=== PATIENT | male | born 1975 | race Caucasian/White ===

== ENCOUNTER 2022-10-12 11:59 | Outpatient (OUT) | payer BC, SELFPAY | END 2022-10-12 12:00 | PROVIDERS: PCP Internal Medicine; Visit Provider Internal Medicine | DX: G47.33 Obstructive sleep apnea (adult) (pediatric) (principal) | CPT/HCPCS: 95806 ==

== ENCOUNTER 2022-11-13 20:00 | Outpatient (OUT) | payer BC, SELFPAY | END 2022-11-13 20:01 | disposition home or self-care (01) | LOC: SLEEP 11-14 07:31 | PROVIDERS: PCP Internal Medicine; Visit Provider Internal Medicine | DX: G47.33 Obstructive sleep apnea (adult) (pediatric) (principal) | CPT/HCPCS: 95811 ==

== ENCOUNTER 2023-03-07 12:33 | Outpatient (OUT) | payer BC, SELFPAY ==
[2023-02-23] MEDS: FLU VACC QS 23-24(6MS UP)CEL/PF 60 MCG/0.5 ML SYRINGE IM (17:50)
== END 2023-03-07 12:34 | disposition home or self-care (01) ==
LOC: VACCLI 12:33
PROVIDERS: PCP Internal Medicine; Visit Provider Internal Medicine
DX: Z23 Encounter for immunization (principal)
CPT/HCPCS: 90674; G0008

== ENCOUNTER 2023-06-22 08:34 | Outpatient (OUT) | payer BC, SELFPAY ==
--- OUTSIDE RECORDS SUMMARY | 2023-06-22 08:53 | XMS_ITS | CCD ---
Author Name Unknown Address [address] [place] [id number] Organization [facility] Care Team Providers Care Ophthalmic Pathologist Name Role Phone Aubrey Ubaldo Unavailable INDIO, DR DUNN Admitting Unavailable BALL, DR DUNN Attending Unavailable BUCKNER, DR YRAN Bacon Primary Care Unavailable OLEXA, UBALDO Admitting Unavailable OLEXA, UBALDO Attending Unavailable BUCKNER, DR RYAN Bacon Primary Care Unavailable ZIEBER, DR SAY Otero Consulting Unavailable OLEXA, UBALDO Consulting Unavailable PETZNICK, DR MULLER Admitting Unavailable PETZNICK, DR MULLER Attending Unavailable BALL, DR DUNN Primary Care Unavailable PETZNICK, DR MULLER Consulting Unavailable OLEXA, UBALDO Admitting Unavailable OLEXA, UBALDO Attending Unavailable BUCKNER, DR RYAN Bacon Primary Care Unavailable NILL, DR WELLINGTON Admitting Unavailable NILL, DR WELLINGTON Attending Unavailable BUCKNER, DR RYAN Bacon Primary Care Unavailable NILL, DR WELLINGTON Consulting Unavailable NILL, DR WELLINGTON Admitting Unavailable NILL, DR WELLINGTON Attending Unavailable BALL, DR DUNN Primary Care Unavailable NILL, DR WELLINGTON Consulting Unavailable AGUBOSIM, KALI Consulting Unavailable DORKOSKIE, JUSTYN Consulting Unavailable Indio, Stalin Unavailable YOHANA JOHNSON Attending Unavailable Medications Current Medications Medication Drug Class(es) Dates Sig (Normalized) Sig (Original) Hydrocortisone / Neomycin / Polymyxin B (6 sources) Aminoglycoside Antibacterial, Polymyxin-class Antibacterial, Corticosteroid Start: 06-18-2013 Cortisporin [id number] 4 drops into affected ear Otic Three times a day for 7 days Jun, Active insulin aspart, human 100 unt/ml injectable solution (6 sources) Insulin Analog NovoLOG 100 UNIT/ML as directed Subcutaneous Active predniSONE 20 mg oral tablet (3 sources) Start: 10-18-2022 predniSONE 20 MG 1 tablet Orally tid w/ food x 3 days, then bid w/ food x 3 days, then qd w/ food x 3 days for 9 days Sep, Active Problems Active Problems Problem Classification Problem Date Documented Date Episodic/Chronic Allergic reactions (1 source) Allergic contact dermatitis due to plants, except food Episodic Anxiety disorders (6 sources) Generalized anxiety disorder; Translations: [Generalized anxiety disorder] Onset: 08-05-2021 Chronic Diabetes mellitus with complications (6 sources) Hyperglycemia due to type 1 diabetes mellitus; Translations: [Type 1 diabetes mellitus with hyperglycemia] Chronic Diabetes mellitus without complication (1 source) Type 1 diabetes mellitus without complications; Translations: [TYPE 1 DM WITHOUT COMPLICATIONS] Onset: 08-05-2021 Chronic Disorders of lipid metabolism (6 sources) Pure hypercholesterolemia , unspecified; Translations: [Pure hypercholesterolemia ] Onset: 08-05-2021 Chronic Other connective tissue disease (4 sources) Adhesive capsulitis of right shoulder; Translations: [Adhesive capsulitis of right shoulder] Episodic Other connective tissue disease (1 source) Other symptoms and signs involving the nervous system Episodic Other ear and sense organ disorders (6 sources) Infective otitis externa; Translations: [Infective otitis externa, unspecified] Chronic Other ear and sense organ disorders (1 source) Otitis externa of bilateral ears; Translations: [Other otitis externa, bilateral] Chronic Other nutritional; endocrine; and metabolic disorders (2 sources) Overweight; Translations: [Overweight] Episodic Residual codes; unclassified (2 sources) Obstructive sleep apnea syndrome; Translations: [Obstructive sleep apnea (adult) (pediatric)] Chronic Residual codes; unclassified (1 source) Obstructive sleep apnea (adult) (pediatric) Chronic Unclassified (1 source) CONTACT W/AND (SUSP) EXPOS COVID-19; Translations: [CONTACT W/AND (SUSP) EXPOS COVID-19] Onset: 07-28-2021 Past or Other Problems Problem Classification Problem Date Documented Date Episodic/Chronic Noninfectious gastroenteritis (1 source) Noninfective gastroenteritis and colitis, unspecified; Translations: [NONINFECTIVE GE AND COLITIS UNS] Onset: 08-05-2021 Episodic Other aftercare (1 source) Other long term care pharmacist (current) drug therapy; Translations: [OTH BRAIN WAVE TECHNICIAN CURRENT DRUG THERAPY] Onset: 08-05-2021 Episodic Other connective tissue disease (6 sources) Adhesive capsulitis of right shoulder; Translations: [ADHESIVE CAPSULITIS RIGHT SHOULDER] Onset: 07-27-2021 Resolved: 09-21-2021 Episodic Other connective tissue disease (1 source) Adhesive capsulitis of left shoulder Onset: 09-21-2021 Resolved: 09-21-2021 Episodic Other non-traumatic joint disorders (6 sources) Pain in right shoulder; Translations: [PAIN IN RIGHT SHOULDER] Onset: 07-27-2021 Resolved: 09-21-2021 Episodic Other non-traumatic joint disorders (3 sources) Pain in left shoulder; Translations: [PAIN IN LEFT SHOULDER] Onset: 07-27-2021 Resolved: 09-21-2021 Episodic Other screening for suspected conditions (not mental disorders or infectious disease) (4 sources) Encounter for screening for malignant neoplasm of colon; Translations: [ENC SCREEN MALIG NEOPLASM COLON] Onset: 07-28-2021 Episodic Screening and history of mental health and substance abuse codes (1 source) Personal history of nicotine dependence; Translations: [PERSONAL HISTORY OF NICOTINE DEPEND] Onset: 08-05-2021 Episodic Results Test Name Value Interpretation Reference Range Facil ity CBC AUTO DIFFon 03-12-2022 BASO # 0.1 103/ul Normal 0.0-0.1 [facility] Comment on above: Performed By: #### C BC #### [facility] [address] [address] [address] Michelle Newell Basophils/100 WBC (Bld) 1.1 % Normal 0.2-2.0 [facility] Comment on above: Performed By: #### C BC #### [facility] [address] [address] [address] Michelle Newell EO # 0.3 103/ul Normal 0.0-0.7 [facility] Comment on above: Performed By: #### C BC #### [facility] [address] [address] [address] Michelle Newell Eosinophils/100 WBC (Bld) 4.6 % Normal 0.9-7.0 [facility] Comment on above: Performed By: #### C BC #### [facility] [address] [address] [address] Michelle Newell Erythrocyte distribution width (RBC) [Ratio] 12.2 % Normal 11.0-15.0 [facility] Comment on above: Performed By: #### C BC #### [facility] [address] [address] [address] Michelle Newell Hematocrit (Bld) [Volume fraction] 45.4 % Normal 42.0-54.0 [facility] Comment on above: Performed By: #### C BC #### [facility] [address] [address] [address] Michelle Newell Hemoglobin (Bld) [Mass/Vol] 15.4 g/dL Normal 14.0-18.0 [facility] Comment on above: Performed By: #### C BC #### [facility] [address] [address] [address] Mcihelle Newell IG # 0.02 10e3/ul Normal 0.00-0.03 [facility] Comment on above: Performed By: #### C BC #### [facility] [address] [address] [address] Michelle Newell IG % 0.3 % Normal 0.0-0.5 [facility] Comment on above: Performed By: #### C BC #### [facility] [address] [address] [address] Michelle Newell LYMPH # 1.8 103/ul Normal 1.2-3.8 [facility] Comment on above: Performed By: #### C BC #### [facility] [address] [address] [address] Michelle Newell Lymphocytes/100 WBC (Bld) 24.5 % Normal 20.5-60.0 [facility] Comment on above: Performed By: #### C BC #### [facility] [address] [address] [address] Michelle Newell MANUAL DIFF REQ NO Normal [facility] Comment on above: Performed By: #### C BC #### [facility] [address] [place] [address] Dr. Michelle Newell MCH (RBC) [Entitic mass] 30.9 pg Normal 25.9-34.0 [facility] Comment on above: Performed By: #### C BC #### [facility] [address] [address] [address] Michelle Newell MCHC (RBC) [Mass/Vol] 33.9 g/dL Normal 29.9-35.2 [facility] Comment on above: Performed By: #### C BC #### [facility] [address] [address] [address] Michelle Newell MCV (RBC) [Entitic vol] 91.2 fL Normal 80.0-94.0 [facility] Comment on above: Performed By: #### C BC #### [facility] [address] [place] [address] Dr. Michelle Newell MONO # 0.8 103/ul Normal 0.3-0.8 [facility] Comment on above: Performed By: #### C BC #### [facility] [address] [place] [address] Dr. Michelle Newell Monocytes/100 WBC (Bld) 10.8 % Normal 1.7-12.0 [facility] Comment on above: Performed By: #### C BC #### [facility] [address] [place] [address] Dr. Michelle Newell NEUT # 4.3 103/ul Normal 1.4-6.5 [facility] Comment on above: Performed By: #### C BC #### [facility] [address] [place] [address] Dr. Michelle Newell Neutrophils/100 WBC (Bld) 58.7 % Normal 43.0-75.0 [facility] Comment on above: Performed By: #### C BC #### [facility] [address] [place] [address] Dr. Michelle Newell Platelet mean volume (Bld) [Entitic vol] 10.2 fL Normal 9.5-13.5 [facility] Comment on above: Performed By: #### C BC #### [facility] [address] [place] [address] Dr. Michelle Newell PLT 326 103/ul Normal 150-450 [facility] Comment on above: Performed By: #### C BC #### [facility] [address] [address] [address] Michelle Newell RBC 4.98 106/ul Normal 4.70-6.10 [facility] Comment on above: Performed By: #### C BC #### [facility] [address] [address] [address] Michelle Newell WBC 7.3 103/ul Normal 4.0-11.0 [facility] Comment on above: Performed By: #### C BC #### [facility] [address] [address] [address] Michelle Newell LIPID PROFILEon 03-12-2022 CHOL-HDL RATIO NORM SEE BELOW Normal [facility] Comment on above: Result Comment: 3.3 - 4.4 LOW RISK 4.4 - 7.1 AVERAGE RISK 7.1 - 11.0 MODERATE RISK >11.0 HIGH RISK Performed By: #### L IPID, TSH, CMP #### [facility] [address] [address] [address] Michelle Newell Cholesterol [Mass/Vol] 155 mg/dL Normal <=200 [facility] Comment on above: Performed By: #### L IPID, TSH, CMP #### [facility] [address] [address] [address] Michelle Newell Cholesterol in HDL [Mass/Vol] 70 mg/dL Critically high 40-60 [facility] Comment on above: Performed By: #### L IPID, TSH, CMP #### [facility] [address] [address] [address] Michelle Newell Cholesterol in LDL [Mass/Vol] 76.2 mg/dL Normal [facility] Comment on above: Performed By: #### L IPID, TSH, CMP #### [facility] [address] [address] [address] Michelle Newell Cholesterol.total/C holesterol in HDL [Mass ratio] 2.2 {ratio} Normal [facility] Comment on above: Performed By: #### L IPID, TSH, CMP #### [facility] [address] [address] [address] Michelle Newell HDL NORMAL > or = 60 mg/dl - LO W CARDIOVASCULAR RISK <40 mg/dl - HIGH CARDIOVASCULAR RISK Normal [facility] Comment on above: Performed By: #### L IPID, TSH, CMP #### [facility] [address] [address] [address] Michelle Newell LDL CALC NORMAL SEE BELOW Normal [facility] Comment on above: Result Comment: <100 mg/dl OPTIMAL 100 - 129 mg/dl NEAR OR ABOVE OPTIMAL 130 - 159 mg/dl BORDERLINE HIGH 160 - 189 mg/dl HIGH >190 mg/dl VERY HIGH Performed By: #### L IPID, TSH, CMP #### [facility] [address] [address] [address] Michelle Newell Triglyceride [Mass/Vol] 44 mg/dL Normal <=150 [facility] Comment on above: Performed By: #### L IPID, TSH, CMP #### [facility] [address] [address] [address] Michelle Newell VLDL CALC 8.8 mg/dL Normal [facility] Comment on above: Performed By: #### L IPID, TSH, CMP #### [facility] [address] [address] [address] Michelle Newell MICROALB CREAT RATIO RANDOMo n 03-12-2022 mALB <1.3 Normal <=30.0 [facility] Comment on above: Performed By: #### M CRR #### [facility] [address] [address] [address] Michelle Newell MALB CR RATIO 7.6 mg/g Normal 0.0-29.9 [facility] Comment on above: Performed By: #### M CRR #### [facility] [address] [address] [address] Michelle Newell MALB CR RATIO RANGE SEE BELOW Normal [facility] Comment on above: Result Comment: NO M ICROALBUMINURIA 0-29 MG/G CLINICAL MICROALBUMINURIA 30-300 MG/G MACROALBUMINURIA >300 MG/G Performed By: #### M CRR #### [facility] [address] [address] [address] Michelle Newell URINE CREAT 170.74 mg/dL Normal 20.00-300.[address] [facility] Comment on above: Performed By: #### M CRR #### [facility] [address] [address] [address] Michelle Newell PROF 14(COMP METB)on 022 Albumin [Mass/Vol] 4.2 g/dL Normal 3.4-5.0 [facility] Comment on above: Performed By: #### L IPID, TSH, CMP #### [facility] [address] [place] [address] Dr. Michelle Newell Albumin/Globulin [Mass ratio] 1.2 {ratio} Normal [facility] Comment on above: Performed By: #### L IPID, TSH, CMP #### [facility] [address] [place] [address] Dr. Michelle Newell ALP [Catalytic activity/Vol] 130 U/L Critically high 46-116 [facility] Comment on above: Performed By: #### L IPID, TSH, CMP #### [facility] [address] [place] [address] Dr. Michelle Newell ALT [Catalytic activity/Vol] 30 U/L Normal 16-63 [facility] Comment on above: Performed By: #### L IPID, TSH, CMP #### [facility] [address] [place] [address] Dr. Michelle Newell Anion gap [Moles/Vol] 7.3 mmol/L Normal [facility] Comment on above: Performed By: #### L IPID, TSH, CMP #### [facility] [address] [place] [address] Dr. Michelle Newell AST [Catalytic activity/Vol] 19 U/L Normal 15-37 [facility] Comment on above: Performed By: #### L IPID, TSH, CMP #### [facility] [address] [place] [address] Dr. Michelle Newell Bilirubin [Mass/Vol] 0.5 mg/dL Normal 0.2-1.0 [facility] Comment on above: Performed By: #### L IPID, TSH, CMP #### [facility] [address] [address] [address] Michelle Newell Calcium [Mass/Vol] 8.9 mg/dL Normal 8.5-10.1 [facility] Comment on above: Performed By: #### L IPID, TSH, CMP #### [facility] [address] [address] [address] Michelle Newell Chloride [Moles/Vol] 101 mmol/L Normal 98-107 [facility] Comment on above: Performed By: #### L IPID, TSH, CMP #### [facility] [address] [address] [address] Michelle Newell CO2 [Moles/Vol] 34.6 mmol/L Critically high 21.0-32.0 [facility] Comment on above: Performed By: #### L IPID, TSH, CMP #### [facility] [address] [place] [address] Dr. Michelle Newell Creatinine [Mass/Vol] 0.75 mg/dL Normal 0.70-1.30 [facility] Comment on above: Performed By: #### L IPID, TSH, CMP #### [facility] [address] [place] [address] Dr. Michelle Newell EGFR-AF ZAMBIAN >60 Normal >=60 [facility] Comment on above: Performed By: #### L IPID, TSH, CMP #### [facility] [address] [place] [address] Dr. Michelle Newell EGFR-NON AF ZAMBIAN >60 Normal >=60 [facility] Comment on above: Performed By: #### L IPID, TSH, CMP #### [facility] [address] [place] [address] Dr. Michelle Newell Globulin (S) [Mass/Vol] 3.4 g/dL Normal [facility] Comment on above: Performed By: #### L IPID, TSH, CMP #### [facility] [address] [place] [address] Dr. Michelle Newell Glucose [Mass/Vol] 131 mg/dL Critically high 74-106 [facility] Comment on above: Performed By: #### L IPID, TSH, CMP #### [facility] [address] [place] [address] Dr. Michelle Newell Potassium [Moles/Vol] 3.9 mmol/L Normal 3.5-5.1 [facility] Comment on above: Performed By: #### L IPID, TSH, CMP #### [facility] [address] [place] [address] Dr. Michelle Newell Protein [Mass/Vol] 7.6 g/dL Normal 6.4-8.2 [facility] Comment on above: Performed By: #### L IPID, TSH, CMP #### [facility] [address] [place] [address] Dr. Michelle Newell Sodium [Moles/Vol] 139 mmol/L Normal 136-145 [facility] Comment on above: Performed By: #### L IPID, TSH, CMP #### [facility] [address] [place] [address] Dr. Michelle Newell Urea nitrogen [Mass/Vol] 11.0 mg/dL Normal 7.0-18.0 [facility] Comment on above: Performed By: #### L IPID, TSH, CMP #### [facility] [address] [place] [address] Dr. Michelle Newell Urea nitrogen/Creatinine [Mass ratio] 14.7 mg/mg Normal [facility] Comment on above: Performed By: #### L IPID, TSH, CMP #### [facility] [address] [place] [address] Dr. Michelle Newell TSHon 03-12-2022 TSH 4.267 uIU/mL Critically high 0.358-3.740 [facility] Comment on above: Performed By: #### L IPID, TSH, CMP #### [facility] [address] [place] [address] Dr. Michelle Newell Pathology Noteon 07-30-2021 Pathology Note [id number] 0CD:127 Normal [facility] Outside Colonoscopyon 2021 Outside Colonoscopy [id number] CD:127 Normal [facility] Reminderson 07-29-2021 Reminders - From: Etelvina Saxena LPN To: N - Clinical; Sent: 07/29/2021 09:57:59 EDT Show up: 06/28/2031 07:00:00 EST Subject: colonoscopy recall Due Date/Time: 07/29/2031 07:00:00 EDT Reminder/Recall Patient is due for screening colonoscopy 07/29/2031. Normal [facility] Lab Reportson 07-26-2021 Lab Reports [id number] 0CD:127 Normal [facility] SARS-CoV-2 (COVID-19) RNA FRANCE+probe Ql (Unsp spec) Not detected Normal NOT DETECTED [facility] Comment on above: Result Comment: When diagnostic testing is negative, the possibility of a false negative should be considered in the context of a patient's recent exposures and the presence of clinical signs and symptoms consistent with SARS-CoV-2. This test is not yet approved or cleared by the [place] Food and Drug Administration (FDA). This test was developed by [employer], [place], [place]. The performance characteristics of this test were validated by [facility]. The results are not intended to be used as the sole means for clinical diagnosis or patient management decisions. [facility] is authorized under Clinical Laboratory Improvement Amendments (CLIA) to perform high- complexity testing. This test is not yet approved or cleared by the [place] FDA. When there are no FDA-approved or cleared tests available, and other criteria are met, FDA can make tests available under an emergency access mechanism called an Emergency Use Authorization (EUA). The EUA for this test is supported by the [place] of Health and Human Service's declaration that circumstances exist to justify the emergency use of in vitro diagnostics for the detection and/or diagnosis of the virus that causes COVID-19. This EUA will remain in effect for the duration of the COVID-19 declaration justifying emergency of IVDs, unless it is terminated or revoked by the FDA (after which the test may no longer be used). Performed By: #### C [facility] #### [facility] [address] [place] [address] Dr. Michelle Newell Consent for Procedure/Surger yon 07-15-2021 Consent for Procedure/Surgery [id number] 0CD:127 Normal [facility] Physician Referralon 022 Physician Referral [id number] 0CD:127 Normal [facility] Vital Signs Date Time Vital Sign Value Performing Clinician Facility 09-30-2022 10:00-0400 Body height 172.72 cm [facility] Other [facility] Other 09-30-2022 10:00-0400 Body mass index (BMI) [Ratio] 28.67 kg/m2 [facility] Other [facility] Other 09-30-2022 10:00-0400 Body weight 85.55 kg [facility] Other [facility] Other 09-30-2022 10:00-0400 Diastolic blood pressure 80 mm[Hg] [facility] Other [facility] Other 09-30-2022 10:00-0400 Respiratory rate 12 /min [facility] Other [facility] Other 09-30-2022 10:00-0400 Systolic blood pressure 135 mm[Hg] [facility] Other [facility] Other Encounters Encounter Date Encounter Type Care Provider Facility Start: 04-14-2023 End: 04-14-2023 ambulatory YOHANA JOHNSON Not Available Start: 01-18-2023 End: 01-18-2023 ambulatory Stalin Borjas Other [facility] Other Start: 01-18-2023 Telephone encounter tSalin GOMES [facility] Start: 10-24-2022 End: 10-24-2022 ambulatory Stalin Borjas Other [facility] Other Start: 10-24-2022 Telephone encounter Stalin GOMES [facility] Start: 10-18-2022 End: 10-18-2022 ambulatory Stalin Borjas Other [facility] Other Start: 10-18-2022 Telephone encounter Stalin GOMES [facility] Start: 09-30-2022 End: 09-30-2022 ambulatory Stalin Borjas Other [facility] Other Start: 09-30-2022 Encounter for genera l adult medical examination without abnormal findings Stalin Borjas [facility] Start: 09-30-2022 Periodic preventive med est patient 40-64yrs Stalin Borjas [facility] Start: 03-15-2022 Encounter for genera l adult medical examination without abnormal findings DR YOHANA JOHNSON [facility] Start: 03-12-2022 End: 03-13-[address] YOHANA JOHNSON Facility:[facility] Start: 03-12-2022 End: 03-13-2022 Encounter for general adult medical examination without abnormal findings DR YOHANA JOHNSON Facility:[facility] Start: 09-21-2021 End: 09-21-2021 ambulatory Ubaldo Burgos Other [facility] Other Start: 09-21-2021 Office outpatient vi sit [address] [facility] Start: 08-10-2021 End: 09-24-2021 ambulatory UBALDO BURGOS Facility:[facility] Start: 07-28-2021 Encounter for preprocedural laboratory examination DR ELIZ CHICAS [facility] Start: 07-28-2021 End: 07-28-[address] ELIZ CHICAS Facility:[facility] Start: 07-27-2021 End: 07-28-2021 ambulatory UBALDO AUBREY [facility] Other Start: 07-27-2021 Office outpatient ne w 30 minutes Ubaldo Sethmichael [facility] Start: 07-24-2021 End: 07-25-[address] ELIZ CHICAS Facility:[facility] Start: 07-24-2021 End: 07-25-2021 Encounter for preprocedural laboratory examination DR ELIZ CHICAS Facility:[facility] Start: 07-03-[address] STALIN BORJAS Facili ty:[facility] Start: 06-29-2021 Encounter for genera l adult medical examination without abnormal findings Stalin Borjas Other [email or web address] Other Procedures Date Procedure Procedure Detail Performing Clinician Depression screening Dank Borjas Other Immunizations Immunization Date Immunization Notes Care Provider Fa [facility] 04-13-2021 influenza, injectabl e, quadrivalent, contains preservative Stalin Borjas Other [email or web address] Other 02-24-2021 COVID-19 Vaccine Moderna - Documentation Purposes Only Stalin Borjas Other [email or web address] Other 08-09-2020 COVID-19 Vaccine Moderna - Documentation Purposes Only Stalin Borjas Other [email or web address] Other 07-13-2020 COVID-19 Vaccine Moderna - Documentation Purposes Only Stalin Borjas Other [email or web address] Other Payers Date Payer Category Payer [facility] [id number] 2019 Unknown [id number] 1973 Unknown [id number] .16.84 [id number] 1973 Unknown [id number] .16.84 [id number] 1973 Unknown [id number] 2.16.84 [id number] 1973 Unknown [id number] 2.16.84 [id number] 1973 Unknown [id number] 2.16.84 [id number] 1973 Unknown [id number] 2.16.84 [id number] 1973 Unknown [id number] 1959 Private Health Insurance [id number] 1961 Self-pay Social History Date Type Detail Facility Sex Assigned At [email or web address] Other Clinical Notes 07-14-2021 to 01-18-2023 Note Date & Type Note Facility 01-18-2023 Evaluation note Encounter Date Diagnosis Assessment Notes Dec, 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 (ICD-10 - E10.3553) [email or web address] Other 06-26-2023 Evaluation note* Encounter Date Diagnosis Assessment Notes Treatment Notes Treatment Clinical Notes Sep, AKIN (obstructive sleep apnea) (ICD-10 - G47.33) AHI 18 Psat 79% [email or web address] Other 06-20-2023 Evaluation note* Encounter Date Diagnosis Assessment Notes Treatment Notes Treatment Clinical Notes Sep, Allergic contact dermatitis due to plants, except food (ICD-10 - L23.7) [email or web address] Other 06-02-2023 Evaluation note* Encounter Date Diagnosis Assessment Notes Treatment Notes Treatment Clinical Notes Sep, Wellness examination (ICD-10 - Z00.00) Healthy diet and exercise. Reviewed age-appropriate preventive testing recommended. Sep, Type 1 diabetes mellitus with hyperglycemia (ICD-10 - E10.65) This patient is following a comprehensive diabetic treatment plan. They are checking their feet daily for calluses and nonhealing ulcers. They are being seen for yearly dilated eye examinations. Goals: SBP less than 130, LDL less than 100, FBS less than 140, AC and A1C less than 7%. They are checking their BS daily, will which are reviewed at the office visit. Continue regular routine monitoring of A1C,] Microalbumin, Dilated eye exam and Foot exam Sep, Overweight (ICD-10 - E66.3) This patient has been instructed on a low-fat, high-fiber diet. They are instructed to reduce calories, portion sizes and snacks. It is recommended that they exercise for 30 minutes, 3-5 times weekly. Sep, Suspected sleep apnea (ICD-10 - R29.818) Recommend testing, will send referral for home sleep study [email or web address] Other 05-24-2022 Evaluation note* Encounter Date Diagnosis Assessment Notes Treatment Notes Treatment Clinical Notes August, Pain in right shoulder (ICD-10 - M25.511) August, Pain in left shoulder (ICD-10 - M25.512) August, Adhesive capsulitis of right shoulder (ICD-10 - M75.01) The patient continues to demonstrate symptoms of adhesive capsulitis, however, is improving from current treatment. We will continue aggressive motion exercise. Instructed on use of heat prior to motion exercises. Advised patient take oral NSAID if able at bedtime to decrease morning stiffness. May consider cortisone injection if motion improvement stalls. If patient cannot reach full improvement, may consider surgical intervention. Patient may call in for additional formal physical therapy if he feels necessary at any point. August, Adhesive capsulitis of left shoulder (ICD-10 - M75.02) [email or web address] Other 03-30-2022 NoteOPERATIVE NOTE PREOPERATIVE DIAGNOSIS: Colorectal screening. POSTOPERATIVE DIAGNOSIS: Mild sigmoid inflammation PROCEDURE: Colonoscopy to cecum with cold forceps biopsy of the sigmoid colon. SURGEON: Eliz Chicas M.D. ANESTHESIA: Monitored anesthesia care. ESTIMATED BLOOD LOSS: Less than 1 mL. INDICATIONS AND CONSENT: Patient is a 45-year-old male, presents for colorectal screening. Indications, risks, benefits, alternatives of proceeding explained extensively to patient, including risks of bleeding, colon perforation, anesthetic complications. All of his questions were answered. Informed consent was obtained. PROCEDURE: Patient was brought to the operating room, placed in the left lateral decubitus position. Monitored anesthesia care was provided. Rectal exam was performed which showed no masses or blood. Scope was inserted up the anal canal. Under direct visualization, it was advanced. It was advanced to the cecum where cecal markings were clearly identified. Pictures were obtained. There was noted to be a good prep. Upon withdrawal of the scope, mucosal surfaces were carefully examined. No mass lesions or polyps. There were some mild inflammatory changes from the sigmoid and biopsies were obtained with cold biopsy forceps with good hemostasis. There were rare sigmoid diverticula without inflammatory changes or scarring. Scope was retroflexed in the anal canal. There was no significant hemorrhoidal disease. Scope was then withdrawn. Patient tolerated procedure well. Follow up colonoscopy for screening should be in 10 years. CC: Stalin Borjas D.O. [facility] Signed and Approved by: DR ELIZ CHICAS . 07/30/2021 05:17:00[facility]03-30-2022 NoteOPERATIVE NOTE PREOPERATIVE DIAGNOSIS: Colorectal screening. POSTOPERATIVE DIAGNOSIS: Mild sigmoid inflammation PROCEDURE: Colonoscopy to cecum with cold forceps biopsy of the sigmoid colon. SURGEON: Eliz Chicas M.D. ANESTHESIA: Monitored anesthesia care. ESTIMATED BLOOD LOSS: Less than 1 mL. INDICATIONS AND CONSENT: Patient is a 45-year-old male, presents for colorectal screening. Indications, risks, benefits, alternatives of proceeding explained extensively to patient, including risks of bleeding, colon perforation, anesthetic complications. All of his questions were answered. Informed consent was obtained. PROCEDURE: Patient was brought to the operating room, placed in the left lateral decubitus position. Monitored anesthesia care was provided. Rectal exam was performed which showed no masses or blood. Scope was inserted up the anal canal. Under direct visualization, it was advanced. It was advanced to the cecum where cecal markings were clearly identified. Pictures were obtained. There was noted to be a good prep. Upon withdrawal of the scope, mucosal surfaces were carefully examined. No mass lesions or polyps. There were some mild inflammatory changes from the sigmoid and biopsies were obtained with cold biopsy forceps with good hemostasis. There were rare sigmoid diverticula without inflammatory changes or scarring. Scope was retroflexed in the anal canal. There was no significant hemorrhoidal disease. Scope was then withdrawn. Patient tolerated procedure well. Follow up colonoscopy for screening should be in 10 years. CC: Stalin Borjas D.O. : [facility] Signed and Approved by: DR ELIZ CHICAS . 07/30/2021 05:17:00[facility]03-29-2022 NotePROCEDURE: XR SHOULDER MACRINA 2V or > HISTORY: Pain of right shoulder joint ; chronic bilateral shoulder pain, right greater than left COMPARISON: None. FINDINGS: BONES:No fracture or dislocation. Small degenerative osteophyte along the inferior margin of right glenoid. Minimal joint space narrowing of the glenohumeral joints and acromioclavicular joints bilaterally. SOFT TISSUES:No visible soft tissue swelling. EFFUSION:None visible. OTHER: Negative. IMPRESSION: 1. No acute bone abnormality or bone lesion. 2. Only mild degenerative changes of the glenohumeral joints and acromioclavicular joints bilaterally. Electronically authenticated by: SAY VILLASENOR Date: 2021-07-27 17:23[facility]03-29-2022 Evaluation note* Encounter Date Diagnosis Assessment Notes Treatment Notes Treatment Clinical Notes Jun, Pain in right shoulder (ICD-10 - M25.511) Jun, Pain in left shoulder (ICD-10 - M25.512) Jun, Adhesive capsulitis of right shoulder (ICD-10 - M75.01) This appears to be adhesive capsulitis (frozen shoulder). We discussed and demonstrated aggressive motion exercise in flexion, internal and external rotation multiple times per day. This may take months to improve and the possibility for some permanent loss of motion is present. Patient instructed on use of occasional heat to area and motion exercise. Formal order of physical therapy. [email or web address] Other 03-16-2022 NoteChief Complaint consultation for colonoscopy HPI Staff 45 year old male presents on consultation from Dr. Borjas for screening colonoscopy. Denies abdominalor rectal pain. No rectal bleeding or change in bowel habits. Denies nausea or vomiting. No unexplained weight loss. Never had colonoscopy in the past. No known family history of colon cancer. History of Present Illness 45 yo male with h/o type 1 DM, hyperlipidemia, referred for colorectal screening; denies change in bms or blood in stools, no abdominal complaints; no previous colonoscopy; no abdominal operations; denies asa or NSAID use, no SBE prophylaxis; no fmhx of GI malignancy or IBD. Review of Systems PHQ Score Initial Depression Screen Score: 0 ROS - Provider Constitutional: no fever, no sweats, no weight loss. Eyes: no glasses, no blurred vision, no visual loss. ENMT: no dentures, no hoarseness, no swallowing difficulties, no hearing loss, no ear infection(s),no nose bleeds. Cardiovascular: normal blood pressure, no chest pain, regular heartbeat, no heart murmur. Respiratory: no shortness of breath, no cough, no asthma, no wheezing. Gastrointestinal: no nausea, no vomiting, no diarrhea, no constipation, no blood in stool, no change in bowel habits, no abdominal pain, no hepatitis. Genitourinary: no kidney stones, no urine infection, no dysuria. Musculoskeletal: no pain, no weakness. Skin: no changing moles, no rash, no skin lumps. Neurologic: no seizures, no epilepsy, no headache. Psychiatric: no emotional or psychiatric problem. Heme/Lymph: no bleeding problems, no anemia, no blood clots, no transfusions. Allergy/Immunologic: no swollen lymph nodes/glands, no IV drug abuse. Other: Additional ROS info: Except as noted in the above Review of Systems and in the History of Present Illness, all other systems have been reviewed and are negative or noncontributory. Physical Exam Vitals & Measurements T: 36.7 ?C(Temporal Artery) HR: 76(Peripheral) RR: 16 BP: 126/76 HT: 172.72 cm HT: 172.7 cm WT: 86.4 kg WT: 86.4 kg BMI: 28.96 HEENT: normal conjunctiva, sclera clear, no scleral icterus, EOM intact, PERRLA, oral mucosa moist without lesions. Neck: trachea midline, no mass, symmetric, no thyromegaly or nodules, no adenopathy Respiratory: lungs CTA, respirations non labored. Cardiovascular: regular rate and rhythm, no murmur, no pedal edema or varicosities. Gastrointestinal: soft, non distended, no tenderness, no masses, no palpable hernias, diastasis recti no, no hepatosplenomegaly; normal bs Lymphatic: no cervical adenopathy, no axillary adenopathy, Musculoskeletal: normal gait, digits and nails without infection, nodes, cyanosis, clubbing. Skin: no rashes, no lesions, no ulcers, no subcutaneous nodules, induration. Psychiatric/Neuro: oriented to time, place, person, judgement normal, affect appropriate for age, insight intact, no focal deficits. Tests: review of old records completed, Discussed surgical options, risks, and possible complications with patient. Assessment/Plan 1. Screening for malignant neoplasm of colon (Z12.11: Encounter for screening for malignant neoplasm of colon) plan colonoscopy under anesthesia, informed consent obtained. Follow-up No qualifying data available Problem List/Past Medical History Ongoing BMI 28.0-28.9,adult Controlled type 1 diabetes mellitus with hyperglycemia HAILEY (generalized anxiety disorder) Pure hypercholesterolemia Screening for malignant neoplasm of colon Historical No qualifying data Procedure/Surgical History Carpal tunnel release (2014). Medications atorvastatin 20 mg Tab, 20 mg= 1 tab(s), Oral, Daily Fiasp, See Instructions fluocinolone otic 0.01% drops, 5 drop(s), Ear-Both, BID Lexapro 10 mg Tab, 10 mg= 1 tab(s), Oral, Daily Allergies No Known Allergies Social History Alcohol Current, Beer, 3-5 times per week, 07/14/2021 Substance Abuse - Denies Substance Abuse, 07/14/2021 Tobacco Former smoker, quit more than 30 days ago Tobacco Use:. Never Smokeless Tobacco Use:. Cigarettes, 1per day. Started age 18.0 Years. Stopped age 28 Years., 07/14/2021 Family History Acute myocardial infarction: Father. Immunizations Vaccine Date Status influenza virus vaccine, [facility]:Result Comment: Electronically Signed By: ZULEMA PICHARDO, Eliz Richards\Date and Time Signed: 07/14/21 17:02 EDTHistory general Narrative - Reported* Type Description Date Medical History diabetes mallitus Surgical History carpal tunnel release [email or web address] Other History general Narrative - Reported* Type Description Date Medical History diabetes mallitus Medical History Pure hypercholesterolemia Medical History Adhesive capsulitis of right marsha ulder Medical History HAILEY (generalized anxiety disorde r) Surgical History carpal tunnel release- BILATERA L 2014 Surgical History COLONOSCOPY 2021 Hospitalization History SEE SURGICAL HX [facility] [employer] Other History general Narrative - Reported* Type Description Date Medical History diabetes mallitus Medical History Pure hypercholesterolemia Medical History Adhesive capsulitis of right marsha ulder Medical History HAILEY (generalized anxiety disorde r) Medical History AKIN Surgical History carpal tunnel release- BILATERA L 2014 Surgical History COLONOSCOPY 2021 Hospitalization History SEE SURGICAL HX [email or web address] Other History general Narrative - Reported* Type Description Date Medical History diabetes mallitus Medical History Pure hypercholesterolemia Medical History Adhesive capsulitis of right marsha ulder Medical History HAILEY (generalized anxiety disorde r) Medical History AKIN Medical History Proliferative diabetic retinopat hy Surgical History carpal tunnel release- BILATERA L 2014 Surgical History COLONOSCOPY 2021 Hospitalization History SEE SURGICAL HX [email or web address] Other Summary Purpose Family History No Family History Records FoundNo Family History Records FoundNo Family History Records Found Advance Directives No Advanced Directives Records FoundNo Advanced Directives Records FoundNo Advanced Directives Records Found Additional Source Comments (unrecognized sect ion and content) No Status Records FoundNo Status Records FoundNo Status Records Found INFORMATION SOURCE (unrecogn ized section and content) DATE CREATED AUTHOR 08/22/2021 Montes Humphrey [facility] DATE CREATED AUTHOR AUTHOR'S ORGANIZ ATION 03/23/2022 [facility] DATE CREATED AUTHOR AUTHOR'S ORGANIZ ATION 04/16/2023 [facility] EPIC REASON FOR VISIT (unrecogniz ed section and content) CONSULT DR INDIO NICOLE SHOULD ER PAIN NXRecheck Bilateral ShouldersWellnessMedicationNo InformationNo Information FOR RECORDS PERTAINING TO PATIENTS WHO ARE OR HAVE BEEN ENROLLED IN A CHEMICAL DEPENDENCY/SUBSTANCEABUSE PROGRAM, SOME INFORMATION MAY BE OMITTED. This clinical summary was aggregated from multiple sources. Caution should be exercised in using it in the provision of clinical care. This summary normalizes information from multiple sources, and as a consequence, information in this document may materially change the coding, format and clinical context of patient data. In addition, data may be omitted in some cases. CLINICAL DECISIONS SHOULD BE BASED ON THE PRIMARY CLINICAL RECORDS. [employer] provides no warranty or guarantee of the accuracy or completeness of information in this document.
[2023-06-22] MEDS: COVID VAC 23-24(12UP)MODERNA/PF 50 MCG/0.5 ML VIAL IM (15:32)
== END 2023-06-22 15:34 | disposition home or self-care (01) ==
LOC: VACCLI 08:47
PROVIDERS: PCP Internal Medicine
DX: Z23 Encounter for immunization (principal)
CPT/HCPCS: 90480; 91322

== ENCOUNTER 2023-09-29 08:37 | Outpatient (OUT) | payer BC, SELFPAY ==
--- OUTSIDE RECORDS SUMMARY | 2023-09-29 08:58 | XMS_ITS | CCD ---
Author Organization [facility] Care Team Providers Care Strap Setter Name Role Phone Ubaldo Burgos Unavailable ERIKA, DR DUNN Admitting Unavailable BALL, DR DUNN Attending Unavailable BUCKNER, DR RYAN Bacon Primary Care Unavailable OLEXA, UBALDO Admitting [...] RYAN Bacon Primary Care Unavailable NILL, DR WELILNGTON Consulting Unavailable NILL, DR WELLINGTON Admitting Unavailable NILL, DR WELLINGTON Attending Unavailable BALL, DR DUNN Primary Care Unavailable NILL, DR WELLINGTON Consulting Unavailable AGUBOSIM, KALI Consulting Unavailable DORKOSKIE, JUSTYN Consulting Unavailable Stalin James Unavailable YOHANA JOHNSON Attending Unavailable STALIN JAMES Referring Unavailable YOHANA JOHNSON Attending Unavailable Medications Current Medications Medication Drug Class(es) Dates Sig (Normalized) Sig (Original) Hydrocortisone / Neomycin / Polymyxin B (6 sources) Aminoglycoside Antibacterial, Polymyxin-class Antibacterial, Corticosteroid Start: 06-18-2013 Cortisporin 3.5-71995-0 4 drops into affected ear Otic Three [...] 08-05-2021 Episodic Other aftercare (1 source) Other long-term (current) drug therapy; Translations: [OTH [facility] CURRENT DRUG THERAPY] Onset: 08-05-2021 Episodic Other [...] 03-12-2022 BASO # 0.1 103/ul Normal 0.0-0.[address] [facility] Comment on above: Performed By: #### C BC #### [facility] [address] [address] [address] Michelle Newell Basophils/100 WBC (Bld) 1.1 % Normal 0.2-2.[address] [facility] Comment on above: Performed By: #### C BC #### [facility] [address] [address] [address] Michelle Newell EO # 0.3 103/ul Normal 0.0-0.7 [facility] Comment on above: Performed By: #### C BC #### [facility] [address] [address] [address] Michelle Newell Eosinophils/100 WBC (Bld) 4.6 % Normal 0.9-7.[address] [facility] Comment on above: Performed By: #### C BC #### [facility] [address] [address] [address] Michelle Newell Erythrocyte distribution width (RBC) [Ratio] 12.2 % Normal 11.0-15.[address] [facility] Comment on above: Performed By: #### C BC #### [facility] [address] [address] [address] Michelle Newell Hematocrit (Bld) [Volume fraction] 45.4 % Normal 42.0-54.[address] [facility] Comment on above: Performed By: #### C BC #### [facility] [address] [place] [address] Dr. Michelle Newell Hemoglobin (Bld) [Mass/Vol] 15.4 g/dL Normal 14.0-18.[address] [facility] Comment on above: Performed By: #### C BC #### [facility] [address] [place] [address] Dr. Michelle Newell IG # 0.02 10e3/ul Normal 0.00-0.[address] [facility] Comment on above: Performed By: #### C BC #### [facility] [address] [place] [address] Dr. Michelle Newell IG % 0.3 % Normal 0.0-0.[address] [facility] Comment on above: Performed By: #### C BC #### [facility] [address] [place] [address] Dr. Michelle Newell LYMPH # 1.8 103/ul Normal 1.2-3.[address] [facility] Comment on above: Performed By: #### C BC #### [facility] [address] [place] [address] Dr. Michelle Newell Lymphocytes/100 WBC (Bld) 24.5 % Normal 20.5-60.[address] [facility] Comment on above: Performed By: #### C BC #### [facility] [address] [place] [address] Dr. Michelle Newell MANUAL DIFF REQ NO Normal [facility] Comment on above: Performed By: #### C BC #### [facility] [address] [place] [address] Dr. Michelle Newell MCH (RBC) [Entitic mass] 30.9 pg Normal 25.9-34.[address] [facility] Comment on above: Performed By: #### C BC #### [facility] [id number] Michelle Newell MCHC (RBC) [Mass/Vol] 33.9 g/dL Normal 29.9-35.[address] [facility] Comment on above: Performed By: #### C BC #### [facility] [id number] Michelle Newell MCV (RBC) [Entitic vol] 91.2 fL Normal 80.0-94.0 [facility] Comment on above: Performed By: #### C BC #### [facility] [address] [address] [address] Michelle Newell MONO # 0.8 103/ul Normal 0.3-0.[address] [facility] Comment on above: Performed By: #### C BC #### [facility] [address] [place] [address] Dr. Michelle Newell Monocytes/100 WBC (Bld) 10.8 % Normal 1.7-12.[address] [facility] Comment on above: Performed By: #### C BC #### [facility] [address] [place] [address] Dr. Michelle Newell NEUT # 4.3 103/ul Normal 1.4-6.[address] [facility] Comment on above: Performed By: #### C BC #### [facility] [address] [place] [address] Dr. Michelle Newell Neutrophils/100 WBC (Bld) 58.7 % Normal 43.0-75.0 [facility] Comment on above: Performed By: #### C BC #### [facility] [address] [place], [place] [id number] Dr. Michelle Newell Platelet mean volume (Bld) [Entitic vol] 10.2 fL Normal 9.5-13.5 [facility] Comment on above: Performed By: #### C BC #### [facility] [address] [place] [address] Dr. Michelle Newell PLT 326 103/ul Normal 150-450 [facility] Comment on above: Performed By: #### C BC #### [facility] [address] [address] [address] Michelle Newell RBC 4.98 106/ul Normal 4.70-6.[address] [facility] Comment on above: Performed By: #### C BC #### [facility] [address] [address] [address] Michelle Newell WBC 7.3 103/ul Normal 4.0-11.[address] [facility] Comment on above: Performed By: #### C BC #### [facility] [address] [address] [address] Michelle Newell LIPID PROFILEon 03-12-2022 CHOL-HDL RATIO NORM SEE BELOW Normal [facility] Comment on above: Result Comment: 3.3 - 4.4 LOW RISK 4.4 - 7.1 AVERAGE RISK 7.1 - 11.0 MODERATE RISK >11.0 HIGH RISK Performed By: #### L IPID, TSH, CMP #### [facility] [address] [address] [address] Michelle Newell Cholesterol [Mass/Vol] 155 mg/dL Normal <=[address] [facility] Comment on above: Performed By: #### L IPID, TSH, CMP #### [facility] [address] [address] [address] Michelle Newell Cholesterol in HDL [Mass/Vol] 70 mg/dL Critically high 40-[address] [facility] Comment on above: Performed By: #### L IPID, TSH, CMP #### [facility] [address] [address] [address] Michelle Newell Cholesterol in LDL [Mass/Vol] 76.2 mg/dL Normal [facility] Comment on above: Performed By: #### L IPID, TSH, CMP #### [facility] [address] [address] [address] Michelle Newell Cholesterol.total/C holesterol in HDL [Mass ratio] 2.2 {ratio} Normal [facility] Comment on above: Performed By: #### L IPID, TSH, CMP #### [facility] [address] [address] [address] Michelle Newell HDL NORMAL > or = 60 mg/dl - LO W CARDIOVASCULAR RISK <40 mg/dl - HIGH CARDIOVASCULAR RISK Normal [facility] Comment on above: Performed By: #### L IPID, TSH, CMP #### [facility] [address] [address] [address] Michelle Newell LDL CALC NORMAL SEE BELOW Normal [facility] Comment on above: Result Comment: <100 mg/dl OPTIMAL 100 - 129 mg/dl NEAR OR ABOVE OPTIMAL 130 - 159 mg/dl BORDERLINE HIGH 160 - 189 mg/dl HIGH >190 mg/dl VERY HIGH Performed By: #### L IPID, TSH, CMP #### [facility] [address] [address] [address] Michelle Newell Triglyceride [Mass/Vol] 44 mg/dL Normal <=[address] [facility] Comment on above: Performed By: #### L IPID, TSH, CMP #### [facility] [address] [address] [address] Michelle Newell VLDL CALC 8.8 mg/dL Normal [facility] Comment on above: Performed By: #### L IPID, TSH, CMP #### [facility] [address] [address] [address] Michelle Newell MICROALB CREAT RATIO RANDOMo n 03-12-2022 mALB <1.3 Normal <=30.[address] [facility] Comment on above: Performed By: #### M CRR #### [facility] [address] [address] [address] Michelle Newell MALB CR RATIO 7.6 mg/g Normal 0.0-29.9 [facility] Comment on above: Performed By: #### M CRR #### [facility] [address] [address] [address] Michelle Newell MALB CR RATIO RANGE SEE BELOW Normal [facility] Comment on above: Result Comment: NO M ICROALBUMINURIA 0-29 MG/G CLINICAL MICROALBUMINURIA 30-300 MG/G MACROALBUMINURIA >300 MG/G Performed By: #### M CRR #### [facility] [address] [address] [address] Michelle Newell URINE CREAT 170.74 mg/dL Normal 20.00-300.00 [facility] Comment on above: Performed By: #### M CRR #### [facility] [address] [place] [address] Dr. Michelle Newell PROF 14(COMP METB)on 022 Albumin [Mass/Vol] 4.2 g/dL Normal 3.4-5.0 [facility] Comment on above: Performed By: #### L IPID, TSH, CMP #### [facility] [address] [place] [address] Dr. Michelle Newell Albumin/Globulin [Mass ratio] 1.2 {ratio} Normal [facility] Comment on above: Performed By: #### L IPID, TSH, CMP #### [facility] [address] [place] [address] Dr. Michelle Newell ALP [Catalytic activity/Vol] 130 U/L Critically high 46-[address] [facility] Comment on above: Performed By: #### L IPID, TSH, CMP #### [facility] [address] [place] [address] Dr. Michelle Newell ALT [Catalytic activity/Vol] 30 U/L Normal 16-[address] [facility] Comment on above: Performed By: #### L IPID, TSH, CMP #### [facility] [address] [place] [address] Dr. Michelle Newell Anion gap [Moles/Vol] 7.3 mmol/L Normal [facility] Comment on above: Performed By: #### L IPID, TSH, CMP #### [facility] [address] [place] [address] Dr. Michelle Newell AST [Catalytic activity/Vol] 19 U/L Normal 15-[address] [facility] Comment on above: Performed By: #### L IPID, TSH, CMP #### [facility] [address] [place] [address] Dr. Michelle Newell Bilirubin [Mass/Vol] 0.5 mg/dL Normal 0.2-1.[address] [facility] Comment on above: Performed By: #### L IPID, TSH, CMP #### [facility] [address] [address] [address] Michelle Newell Calcium [Mass/Vol] 8.9 mg/dL Normal 8.5-10.1 [facility] Comment on above: Performed By: #### L IPID, TSH, CMP #### [facility] [address] [address] [address] Michelle Newell Chloride [Moles/Vol] 101 mmol/L Normal 98-[address] [facility] Comment on above: Performed By: #### L IPID, TSH, CMP #### [facility] [address] [address] [address] Michelle Newell CO2 [Moles/Vol] 34.6 mmol/L Critically high 21.0-32.[address] [facility] Comment on above: Performed By: #### L IPID, TSH, CMP #### [facility] [address] [place] [address] Dr. Michelle Newell Creatinine [Mass/Vol] 0.75 mg/dL Normal 0.70-1.[address] [facility] Comment on above: Performed By: #### L IPID, TSH, CMP #### [facility] [address] [place] [address] Dr. Michelle Newell EGFR-AF [place] >60 Normal >=60 [facility] Comment on above: Performed By: #### L IPID, TSH, CMP #### [facility] [address] [place] [address] Dr. Michelle Newell EGFR-NON AF [place] >60 Normal >=[address] [facility] Comment on above: Performed By: #### L IPID, TSH, CMP #### [facility] [address] [place] [address] Dr. Michelle Newell Globulin (S) [Mass/Vol] 3.4 g/dL Normal [facility] Comment on above: Performed By: #### L IPID, TSH, CMP #### [facility] [address] [address] [address] Michelle Newell Glucose [Mass/Vol] 131 mg/dL Critically high 74-[address] [facility] Comment on above: Performed By: #### L IPID, TSH, CMP #### [facility] [address] [place] [address] Dr. Michelle Newell Potassium [Moles/Vol] 3.9 mmol/L Normal 3.5-5.[address] [facility] Comment on above: Performed By: #### L IPID, TSH, CMP #### [facility] [address] [place] [address] Dr. Michelle Newell Protein [Mass/Vol] 7.6 g/dL Normal 6.4-8.2 [facility] Comment on above: Performed By: #### L IPID, TSH, CMP #### [facility] [address] [place] [address] Dr. Michelle Newell Sodium [Moles/Vol] 139 mmol/L Normal 136-145 [facility] Comment on above: Performed By: #### L IPID, TSH, CMP #### [facility] [address] [place] [address] Dr. Michelle Newell Urea nitrogen [Mass/Vol] 11.0 mg/dL Normal 7.0-18.[address] [facility] Comment on above: Performed By: #### L IPID, TSH, CMP #### [facility] [address] [place] [address] Dr. Michelle Newell Urea nitrogen/Creatinine [Mass ratio] 14.7 mg/mg Normal [facility] Comment on above: Performed By: #### L IPID, TSH, CMP #### [facility] [address] [place] [address] Dr. Michelle Newell TSHon 03-12-2022 TSH 4.267 uIU/mL Critically high 0.358-3.740 [facility] Comment on above: Performed By: #### L IPID, TSH, CMP #### [facility] [address] [place] [address] Dr. Michelle Newell Pathology Noteon 07-30-2021 Pathology Note [id number] 0CD:127 Normal [facility] Outside Colonoscopyon 2021 Outside Colonoscopy [id number] CD:127 Normal [facility] Reminderson 07-29-2021 Reminders - From: Etelvina Saxena LPN To: N - Clinical; Sent: 07/29/2021 09:57:59 EDT Show up: 06/28/2031 07:00:00 EST Subject: colonoscopy recall Due Date/Time: 07/29/2031 07:00:00 EDT Reminder/Recall Patient is due for screening colonoscopy 07/29/2031. Normal [facility] Lab Reportson 07-26-2021 Lab Reports [id number] 0CD:127 Normal [facility] 06[facility]30 SARS-CoV-2 (COVID-19) RNA FRANCE+probe Ql (Unsp spec) Not detected Normal NOT DETECTED [facility] Comment on above: Result Comment: When diagnostic testing is negative, the possibility of a false negative should be considered in the context of a patient's recent exposures and the presence of clinical signs and symptoms consistent with SARS-CoV-2. This test is not yet approved or cleared by the [place] Food and Drug Administration (FDA). This test was developed by [employer], [place], [place]. The performance characteristics of this test were validated by [facility]. The results are not intended to be used as the sole means for clinical diagnosis or patient management decisions. [facility] is authorized under Clinical Laboratory Improvement Amendments [...] for this test is supported by the [place] of Health and Human Service's declaration that [...] longer be used). Performed By: #### C [facility] #### [facility] [address] [place] [address] Dr. Michelle Newell Consent for Procedure/Surger yon 07-15-2021 Consent for Procedure/Surgery [id number] 0CD:127 Normal [facility] Physician Referralon 022 Physician Referral [id number] 0CD:127 Normal [facility] Vital Signs Date Time Vital Sign Value Performing Clinician Facility 09-30-2022 10:00-0400 Body height 172.72 cm [employer] Other [facility] Other 09-30-2022 10:00-0400 Body mass index (BMI) [Ratio] 28.67 kg/m2 [employer] Other [facility] Other 09-30-2022 10:00-0400 Body weight 85.55 kg [employer] Other [facility] Other 09-30-2022 10:00-0400 Diastolic blood pressure 80 mm[Hg] [employer] Other [facility] Other 09-30-2022 10:00-0400 Respiratory rate 12 /min [employer] Other [facility] Other 09-30-2022 10:00-0400 Systolic blood pressure 135 mm[Hg] [employer] Other [facility] Other Encounters Encounter Date Encounter Type Care Provider Facility Start: 09-01-2023 End: 09-01-2023 ambulatory YOHANA JOHNSON Not Available Start: 04-14-2023 End: 04-14-2023 ambulatory YOHANA JOHNSON Not Available Start: 01-18-2023 End: 01-18-2023 ambulatory Stalin James Other [facility] Other Start: 01-18-2023 Telephone encounter Stalin James [facility] Start: 10-24-2022 End: 10-24-2022 ambulatory Stalin James Other [facility] Other Start: 10-24-2022 Telephone encounter Stalin James [facility] Start: 10-18-2022 End: 10-18-2022 ambulatory Stalin James Other [facility] Other Start: 10-18-2022 Telephone encounter Stalin James [facility] Start: 09-30-2022 End: 09-30-2022 ambulatory Stalin James Other [facility] Other Start: 09-30-2022 Encounter for genera l adult medical examination without abnormal findings Stalin James [facility] Start: 09-30-2022 Periodic preventive med est patient 40-64yrs Stalin James [facility] Start: 03-15-2022 Encounter for genera l adult medical examination without abnormal findings DR YOHANA JOHNSON [facility] Start: 03-12-2022 End: 03-13-[address] YOHANA JOHNSON Facility:[facility] Start: 03-12-2022 End: 03-13-2022 Encounter for general adult medical examination without abnormal findings DR YOHANA JOHNSON Facility:[facility] Start: 09-21-2021 End: 09-21-2021 ambulatory Ubaldo Burgos Other [facility] Other Start: 09-21-2021 Office outpatient vi sit 15 minutes Ubaldo Aubrey [facility] Start: 08-10-2021 End: 09-24-2021 ambulatory UBALDO OLEXA Facility:[facility] Start: 07-28-2021 Encounter for preprocedural laboratory examination DR ELIZ CHICAS [facility] Start: 07-28-2021 End: 07-28-[address] ELIZ CHICAS Facility:[facility] Start: 07-27-2021 End: 07-28-2021 ambulatory UBALDO AUBREY [facility] Other Start: 07-27-2021 Office outpatient ne w 30 minutes Ubaldo Aubrey [facility] Start: 07-24-2021 End: 07-25-[address] ELIZ CHICAS Facility:[facility] Start: 07-24-2021 End: 07-25-2021 Encounter for preprocedural laboratory examination DR ELIZ CHICAS Facility:[facility] Start: 07-03-[address] STALIN JAMES Facili ty:[facility] Start: 06-29-2021 Encounter for genera l adult medical examination without abnormal findings Stalin James Other [facility] Other Procedures Date Procedure Procedure Detail Performing Clinician Depression screening Dank James Other Immunizations Immunization Date Immunization Notes Care Provider [facility] 04-13-2021 influenza, injectabl e, quadrivalent, contains preservative Stalin James Other [facility] Other 02-24-2021 COVID-19 Vaccine Moderna - Documentation Purposes Only Stalin James Other [facility] Other 08-09-2020 COVID-19 Vaccine Moderna - Documentation Purposes Only Stalin James Other [facility] Other 07-13-2020 COVID-19 Vaccine Moderna - Documentation Purposes Only Stalin James Other [facility] Other Payers Date Payer Category Payer [facility] [id number] 2019 Unknown [id number] 1973 Unknown [id number] 16.84 [id number] 1973 Unknown [id number] 2.16.84 [id number] 1973 Unknown [id number] 2.16.84 [id number] 1973 Unknown [id number] 2.16.84 [id number] 1973 Unknown [id number] 2.16.84 [id number] 1973 Unknown [id number] 2.16.84 [id number] 1973 Unknown [id number] 2.16.84 [id number] 1973 Unknown [id number] 1959 Private Health Insurance [id number] 1961 Self-pay Social History Date Type Detail Facility Sex Assigned At [facility] Other Clinical Notes 07-14-2021 to 01-18-2023 Note Date & Type Note Facility 01-18-2023 Evaluation note Encounter Date Diagnosis Assessment Notes Dec, 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 (ICD-10 - E10.3553) [facility] Other 06-26-2023 Evaluation note* Encounter Date Diagnosis Assessment Notes Treatment Notes Treatment Clinical Notes Sep, AKIN (obstructive sleep apnea) (ICD-10 - G47.33) AHI 18 Psat 79% [facility] Other 06-20-2023 Evaluation note* Encounter Date Diagnosis Assessment Notes Treatment Notes Treatment Clinical Notes Sep, Allergic contact dermatitis due to plants, except food (ICD-10 - L23.7) [facility] Other 06-02-2023 Evaluation note* Encounter Date Diagnosis [...] will send referral for home sleep study [facility] Other 05-24-2022 Evaluation note* Encounter Date Diagnosis [...] capsulitis of left shoulder (ICD-10 - M75.02) [facility] Other 03-30-2022 NoteOPERATIVE NOTE PREOPERATIVE DIAGNOSIS: Colorectal screening. POSTOPERATIVE DIAGNOSIS: Mild sigmoid inflammation PROCEDURE: Colonoscopy to cecum with cold forceps biopsy of the sigmoid colon. SURGEON: Eliz Chcias M.D. ANESTHESIA: Monitored anesthesia care. ESTIMATED BLOOD [...] should be in 10 years. CC: Stalin James D.O. [facility] Signed and Approved by: DR ELIZ CHICAS . 07/30/2021 05:17:00[facility]03-30-2022 NoteOPERATIVE NOTE PREOPERATIVE DIAGNOSIS: Colorectal screening. [...] should be in 10 years. CC: Stalin James D.O. : [facility] Signed and Approved by: DR ELIZ CHICAS . 07/30/2021 05:17:00[facility]03-29-2022 NotePROCEDURE: XR SHOULDER MACRINA 2V or [...] Electronically authenticated by: SAY VILLASENOR Date: 2021-07-27 17:23[facility]03-29-2022 Evaluation note* Encounter Date Diagnosis Assessment [...] motion exercise. Formal order of physical therapy. [facility] Other 03-16-2022 NoteChief Complaint consultation for colonoscopy HPI Staff 45 year old male presents on consultation from Dr. James for screening colonoscopy. Denies abdominalor rectal pain. [...] Date Status influenza virus vaccine, inactivated [facility] Comment on above:Result Comment: Electronically Signed By: ZULEMA PICHARDO, Eliz Richards\Date and Time Signed: 07/14/21 17:02 EDTHistory general Narrative - Reported* Type Description Date Medical History diabetes mallitus Surgical History carpal tunnel release [facility] Other History general Narrative - Reported* Type Description Date Medical History diabetes mallitus Medical History Pure hypercholesterolemia Medical History Adhesive capsulitis of right marsha ulder Medical History HAILEY (generalized anxiety disorde r) Surgical History carpal tunnel release- BILATERA L 2014 Surgical History COLONOSCOPY 2021 Hospitalization History SEE SURGICAL HX [facility] Other History general Narrative - Reported* Type Description Date Medical History diabetes mallitus Medical History Pure hypercholesterolemia Medical History Adhesive capsulitis of right marsha ulder Medical History HAILEY (generalized anxiety disorde r) Medical History AKIN Surgical History carpal tunnel release- BILATERA L 2014 Surgical History COLONOSCOPY 2021 Hospitalization History SEE SURGICAL HX [facility] Other History general Narrative - Reported* Type Description Date Medical History diabetes mallitus Medical History Pure hypercholesterolemia Medical History Adhesive capsulitis of right marsha ulder Medical History HAILEY (generalized anxiety disorde r) Medical History AKIN Medical History Proliferative diabetic retinopat hy Surgical History carpal tunnel release- BILATERA L 2014 Surgical History COLONOSCOPY 2021 Hospitalization History SEE SURGICAL HX [facility] Other Summary Purpose Family History No Family History Records FoundNo Family History Records FoundNo Family History Records Found Advance Directives No Advanced Directives Records FoundNo Advanced Directives Records FoundNo Advanced Directives Records Found Additional Source Comments (unrecognized sect ion and content) No Status Records FoundNo Status Records FoundNo Status Records Found INFORMATION SOURCE (unrecogn ized section and content) DATE CREATED AUTHOR 08/22/2021 [facility] DATE CREATED AUTHOR AUTHOR'S ORGANIZ ATION 03/23/2022 [facility] DATE CREATED AUTHOR AUTHOR'S ORGANIZ ATION 09/03/[address] [facility] EPIC REASON FOR VISIT (unrecogniz ed section and content) CONSULT DR ERIKA NICOLE SHOULD ER PAIN NXRecheck Bilateral ShouldersWellnessMedicationNo [...] BE BASED ON THE PRIMARY CLINICAL RECORDS. [employer] provides no warranty or guarantee of the accuracy or completeness of information in this document.
[2023-09-29 09:05] LABS: Basophils Absolute Auto 0.1 10^3/uL (0.0-0.1); Basophils Percent Auto 0.8 % (0.2-2.0); Eosinophils Absolute Auto 0.3 10^3/uL (0.0-0.7); Eosinophils Percent Auto 3.9 % (0.9-7.0); Hematocrit 43.1 % (42.0-54.0); Hemoglobin 14.2 g/dL (14.0-18.0); Immature Granulocytes Abs Auto 0.03 10^3/uL (0.00-0.03); Immature Granulocytes Pct Auto 0.4 % (0.0-0.5); Lymphocytes Absolute Auto 1.5 10^3/uL (1.2-3.8); Lymphocytes Percent Auto 21.2 % (20.5-60.0); Mean Corpuscular HGB Conc 32.9 g/dL (29.9-35.2); Mean Corpuscular Hemoglobin 30.5 pg (25.9-34.0); Mean Corpuscular Volume 92.5 fL (80.0-94.0); Mean Platelet Volume 10.1 fL (9.5-13.5); Monocytes Absolute Auto 0.7 10^3/uL (0.3-0.8); Monocytes Percent Auto 10.3 % (1.7-12.0); Neutrophils Absolute Auto 4.5 10^3/uL (1.4-6.5); Neutrophils Percent Auto 63.4 % (43.0-75.0); Platelet Count 331 10^3/uL (150-450); Red Blood Count 4.66 10^6/uL (4.70-6.10); Red Cell Distribution Width 12.2 % (11.0-15.0); White Blood Count 7.1 10^3/uL (4.0-11.0)
[2023-09-29 09:28] LABS: Estimated Average Glucose 157 mg/dL; Glycohemoglobin A1C 7.1 % (4.5-6.2)
[2023-09-29 09:42] LABS: Microalbumin Urine Random <1.3 mg/dL (<=30.0)
[2023-09-29 10:11] LABS: Alanine Aminotransferase 58 U/L (16-63); Albumin Globulin Ratio 1.1; Albumin Level 3.7 g/dL (3.4-5.0); Alkaline Phosphatase 141 U/L (46-116); Anion Gap 10.1; Aspartate Amino Transferase 28 U/L (15-37); Bilirubin Total 0.7 mg/dL (0.2-1.0); Calcium 8.6 mg/dL (8.5-10.1); Carbon Dioxide 31.6 mmol/L (21.0-32.0); Chloride 103 mmol/L (98-107); Chol HDL Ratio 2.4; Cholesterol 174 mg/dL (<=200); Estimated GFR (African America >60 (>=60); Estimated GFR (Non-African Ame >60 (>=60); Globulin 3.4 g/dL; Glucose 128 mg/dL (74-106); HDL Cholesterol 72 mg/dL (40-60); Potassium 3.7 mmol/L (3.5-5.1); Sodium 141 mmol/L (136-145); Total Protein 7.1 g/dL (6.4-8.2); Triglycerides 51 mg/dL (<=150); VLDL CHOLESTEROL 10.2 mg/dL
[2023-09-29 10:42] LABS: Prostate Specific Antigen Scrn 0.26 ng/mL (<=4.00)
== END 2023-09-29 08:38 | disposition home or self-care (01) ==
LOC: LAB 08:38
PROVIDERS: PCP Internal Medicine; Visit Provider Internal Medicine
DX: Z00.00 Encounter for general adult medical examination without abnormal findings (principal)
CPT/HCPCS: 36415; 80053; 80061; 82043; 83036; 85025; G0103

== ENCOUNTER 2023-10-13 07:28 | Outpatient (OUT) | payer BC, SELFPAY ==
--- OUTSIDE RECORDS SUMMARY | 2023-10-13 07:32 | XMS_ITS | CCD ---
Author Organization [facility] Care Team Providers Care Pest Technician Name Role Phone Aubrey Ubaldo Unavailable ERIKA, DR DUNN Admitting Unavailable BALL, [...] Consulting Unavailable DORKOSKIE, JUSTYN Consulting Unavailable Stalin Borjas Unavailable YOHANA JOHNSON Attending Unavailable STALIN BORJAS Referring Unavailable AP CABRERA Attending Unavailable YOHANA JOHNSON Attending Unavailable Medications Current Medications Medication Drug Class(es) Dates Sig (Normalized) Sig (Original) atorvastatin 20 mg oral tablet (2 sources) HMG-CoA Reductase Inhibitor Start: 10-06-2023 End: 10-06-2023 take 20 mg by mouth once daily Atorvastatin Active 20 MG PO Daily 90 90 October 06, 2023 10:43am escitalopram 20 mg oral tablet (2 sources) Serotonin Reuptake Inhibitor Start: 10-06-2023 End: 10-06-2023 take 1 tablet by mouth once daily Escitalopram Oxalate (Lexapro) 20 mg tablet Active 20 MG PO Daily 90 90 October 06, 2023 10:43am Hydrocortisone / Neomycin / Polymyxin B (6 sources) Aminoglycoside Antibacterial, Polymyxin-class Antibacterial, Corticosteroid Start: 06-18-2013 Cortisporin [id number] 4 drops into affected ear Otic Three times a day for 7 days 18 Jun, 2013 Active Insulin Aspart (B3) Pump Cart (1 source) Start: 10-06-2023 Insulin Aspart (B3) Pump Cart (Fiasp Pumpcart) 100 unit/mL (1.6 mL) cartridge Active 1 sliding scale dose SUBCUT Use as Directed October 06, 2023 12:00am insulin aspart, human 100 unt/ml injectable solution (6 sources) Insulin Analog NovoLOG 100 UNIT/ML as directed Subcutaneous Active predniSONE 20 mg oral tablet (3 sources) Start: 10-18-2022 predniSONE 20 MG 1 tablet Orally tid w/ food x 3 days, then bid w/ food x 3 days, then qd w/ food x 3 days for 9 days Sep, Active Completed/Discontinued Medications Medication Drug Class(es) Dates Sig (Normalized) Sig (Original) Insulin Aspart U-100 (Novolog U-100 Insulin Aspart) 100 unit/mL solution (1 source) Start: 10-06-2023 End: 10-06-2023 Insulin Aspart U-100 (Novolog U-100 Insulin Aspart) 100 unit/mL solution Discontinued SUBCUT As Directed October 06, 2023 12:00am October 06, 2023 10:24am Problems Active Problems Problem Classification Problem Date Documented Date Episodic/Chronic Allergic reactions (1 source) Allergic contact dermatitis due to plants, except food Episodic Anxiety disorders (6 sources) Generalized anxiety disorder; Translations: [Generalized anxiety disorder] Onset: 08-05-2021 Chronic Diabetes mellitus with complications (8 sources) Hyperglycemia due to type 1 diabetes mellitus; Translations: [Type 1 diabetes mellitus with hyperglycemia] Chronic Diabetes mellitus without complication (1 source) Type 1 diabetes mellitus without complications; Translations: [TYPE 1 DM WITHOUT COMPLICATIONS] Onset: 08-05-2021 Chronic Disorders of lipid metabolism (6 sources) Pure hypercholesterolemia , unspecified; Translations: [Pure hypercholesterolemia ] Onset: 08-05-2021 Chronic Hyperplasia of prostate (2 sources) Benign prostatic hyperplasia; Translations: [Benign prostatic hyperplasia with lower urinary tract symptoms] 10-04-2023 Chronic Other connective tissue disease (4 sources) [...] Chronic Other nutritional; endocrine; and metabolic disorders (3 sources) Overweight; Translations: [Overweight] Episodic Other nutritional; endocrine; and metabolic disorders (1 source) Overweight; Translations: [Overweight] 10-06-2023 Episodic Other screening for suspected conditions (not mental disorders or infectious disease) (5 sources) Encounter for screening for malignant neoplasm of colon; Translations: [Encounter for screening for malignant neoplasm of prostate] Onset: 07-28-2021 Episodic Residual codes; unclassified (3 sources) Obstructive sleep apnea syndrome; Translations: [Obstructive sleep apnea (adult) (pediatric)] 10-04-2023 Chronic Residual codes; unclassified (2 sources) Obstructive sleep apnea (adult) (pediatric); Translations: [Obstructive sleep apnea (adult)(pediatric)] Chronic Unclassified (1 source) CONTACT W/AND (SUSP) EXPOS COVID-19; Translations: [CONTACT W/AND (SUSP) EXPOS COVID-19] Onset: 07-28-2021 Past or Other Problems Problem Classification Problem Date Documented Date Episodic/Chronic Noninfectious gastroenteritis (1 source) Noninfective gastroenteritis and colitis, unspecified; Translations: [NONINFECTIVE GE AND COLITIS UNS] Onset: 08-05-2021 Episodic Other aftercare (1 source) 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; Translations: [OTH INTERMEDIATE CURRENT DRUG THERAPY] Onset: 08-05-2021 Episodic Other [...] LEFT SHOULDER] Onset: 07-27-2021 Resolved: 09-21-2021 Episodic Screening and history of mental health and substance abuse codes (1 source) Personal history of nicotine dependence; Translations: [PERSONAL HISTORY OF NICOTINE DEPEND] Onset: 08-05-2021 Episodic Results Test Name Value Interpretation Reference Range Facility Basophils Auto (Bld) [#/Vol] on 09-29-2023 Basophils (Bld) [#/Vol] 0.1 10 3/uL 0.0-0.1 [facility] Basophils/100 WBC Auto (Bld) on 09-29-2023 Basophils/100 WBC (Bld) 0.8 % 0.2-2.0 [facility] Cholesterol in LDL Calc [Mas s/Vol]on 09-29-2023 Cholesterol in LDL [Mass/Vol] 92.0 mg/dL [facility] Comment on above: <100 mg/dl [id number] 0-129 mg/dl NEAR OR ABOVE [id number] mg/dl BORDERLINE [id number] mg/dl HIGH>190 mg/dl VERY HIGH Cholesterol in VLDL Calc [Ma ss/Vol]on 09-29-2023 Cholesterol in VLDL [Mass/Vol] 10.2 mg/dL [facility] Eosinophils/100 WBC Auto (Bl d)on 09-29-2023 Eosinophils/100 WBC (Bld) 3.9 % 0.9-7.0 [facility] Erythrocyte distribution wid th Auto (RBC) [Ratio]on 09-29-2023 Erythrocyte distribution width (RBC) [Ratio] 12.2 % 11.0-15.0 [facility] Estimated glomerular filtrat ion rate (GFR) non- Americanon 09-29-2023 GFR/1.73 sq M.predicted among non-blacks MDRD (S/P/Bld) [Vol rate/Area] mL/min/{1.73_m2} >=60 [facility] Globulin Calc (S) [Mass/Vol] on 09-29-2023 Globulin (S) [Mass/Vol] 3.4 g/dL [facility] Glucose mean value [Mass/vol ume] in Blood Estimated from glycated hemoglobinon 09-29-2023 Average glucose Estimated from glycated hemoglobin (Bld) [Mass/Vol] 157 mg/dL [facility] Hematocrit Auto (Bld) [Volum e fraction]on 09-29-2023 Hematocrit (Bld) [Volume fraction] 43.1 % 42.0-54.0 [facility] Hemoglobin [Mass/volume] in Bloodon 09-29-2023 Hemoglobin (Bld) [Mass/Vol] 14.2 g/dL 14.0-18.0 [facility] Laboratory - Chemistry and C hemistry - challengeon 09-29-2023 Albumin [Mass/Vol] 3.7 g/dL 3.4-5.0 [facility] ALP [Catalytic activity/Vol] 141 U/L 46-116 [facility] ALT [Catalytic activity/Vol] 58 U/L 16-63 [facility] AST [Catalytic activity/Vol] 28 U/L 15-37 [facility] Bilirubin [Mass/Vol] 0.7 mg/dL 0.2-1.0 [facility] Calcium [Mass/Vol] 8.6 mg/dL 8.5-10.1 [facility] Chloride [Moles/Vol] 103 mmol/L 98-107 [facility] Cholesterol [Mass/Vol] 174 mg/dL <=200 [facility] Cholesterol in HDL [Mass/Vol] 72 mg/dL 40-60 [facility] Comment on above: > or =60 mg/dl - LOW CARDIOVASCULAR RISK<40 mg/dl - HIGH CARDIOVASCULAR RISK CO2 [Moles/Vol] 31.6 mmol/L 21.0-32.0 [facility] Creatinine [Mass/Vol] 0.80 mg/dL 0.70-1.30 [facility] GFR/1.73 sq M.predicted MDRD (S/P/Bld) [Vol rate/Area] mL/min/{1.73_m2} >=60 [facility] Glucose [Mass/Vol] 128 mg/dL 74-106 [facility] Potassium [Moles/Vol] 3.7 mmol/L 3.5-5.1 [facility] Protein [Mass/Vol] 7.1 g/dL 6.4-8.2 [facility] Sodium [Moles/Vol] 141 mmol/L 136-145 [facility] Triglyceride [Mass/Vol] 51 mg/dL <=150 [facility] Urea nitrogen [Mass/Vol] 16.0 mg/dL 7.0-18.0 [facility] Urea nitrogen/Creatinine [Mass ratio] 20.0 mg/mg [facility] Laboratory - Hematology and Cell countson 09-29-2023 HbA1c (Bld) [Mass fraction] 7.1 % 4.5-6.2 [facility] Comment on above: ADA RECOMMENDED LIMI T 4.0 - 6.0ADA THERAPEUTIC TARGET < 7.0ACTION SUGGESTED> 7.0 Immature granulocytes/100 WBC (Bld) 0.4 % 0.0-0.5 [facility] Leukocytes [#/volume] correc feng for nucleated erythrocytes in Blood by Automated counon 09-29-2023 WBC corrected for nucl RBC Auto (Bld) [#/Vol] 7.1 10 3/uL 4.0-11.0 [facility] Lymphocytes Auto (Bld) [#/Vo l]on 09-29-2023 Lymphocytes (Bld) [#/Vol] 1.5 10 3/uL 1.2-3.8 [facility] Lymphocytes/100 WBC Auto (Bl d)on 09-29-2023 Lymphocytes/100 WBC (Bld) 21.2 % 20.5-60.0 [facility] MCH Auto (RBC) [Entitic mass ]on 09-29-2023 MCH (RBC) [Entitic mass] 30.5 pg 25.9-34.0 [facility] MCHC Auto (RBC) [Mass/Vol]on 09-29-2023 MCHC (RBC) [Mass/Vol] 32.9 g/dL 29.9-35.2 [facility] MCV Auto (RBC) [Entitic vol] on 09-29-2023 MCV (RBC) [Entitic vol] 92.5 fL 80.0-94.0 [facility] Microalbumin [Mass/volume] i n Urineon 09-29-2023 Albumin DL <= 20 mg/L (U) [Mass/Vol] mg/dL <=30.0 [facility] Monocytes Auto (Bld) [#/Vol] on 09-29-2023 Monocytes (Bld) [#/Vol] 0.7 10 3/uL 0.3-0.8 [facility] Monocytes/100 WBC Auto (Bld) on 09-29-2023 Monocytes/100 WBC (Bld) 10.3 % 1.7-12.0 [facility] Neutrophils Auto (Bld) [#/Vo l]on 09-29-2023 Neutrophils (Bld) [#/Vol] 4.5 10 3/uL 1.4-6.5 [facility] Neutrophils/100 WBC Auto (Bl d)on 09-29-2023 Neutrophils/100 WBC (Bld) 63.4 % 43.0-75.0 [facility] No Panel Informationon 09-28 Eosinophils # (Auto) 0.3 10 3/uL 0.0-0.7 [facility] Immature Granulocyte # (Auto) 0.03 10 3/uL 0.00-0.03 [facility] Prostate Specific Antigen Screen 0.26 ng/mL <=4.00 [facility] Platelet mean volume Auto (B ld) [Entitic vol]on 09-29-2023 Platelet mean volume (Bld) [Entitic vol] 10.1 fL 9.5-13.5 [facility] Platelets Auto (Bld) [#/Vol] on 09-29-2023 Platelets (Bld) [#/Vol] 331 10 3/uL 150-450 [facility] RBC Auto (Bld) [#/Vol]on RBC (Bld) [#/Vol] 4.66 10 6/uL 4.70-6.10 [facility] Serum or plasma albumin/glob ulin mass ratioon 09-29-2023 Albumin/Globulin [Mass ratio] 1.1 {ratio} [facility] Serum or plasma anion gap de terminationon 09-29-2023 Anion gap [Moles/Vol] 10.1 mmol/L [facility] Serum or plasma total choles terol/high density lipoprotein (HDL) cholesterol mass jing 09-29-2023 Cholesterol.total/Ch olesterol in HDL [Mass ratio] 2.4 {ratio} [facility] Comment on above: 3.3 - 4.4 LOW RISK4. 4 - 7.1 AVERAGE RISK7.1 - 11.0 MODERATE RISK>11.0 HIGH RISK CBC AUTO DIFFon 03-12-2022 BASO # 0.1 103/ul Normal 0.0-0.1 [facility] Comment on above: Performed By: #### C BC #### [facility] [address] [address] [address] Michelle Newell Basophils/100 WBC (Bld) 1.1 % Normal 0.2-2.0 [facility] Comment on above: Performed By: #### C BC #### [facility] [address] [address] [address] Michelle Newell EO # 0.3 103/ul Normal 0.0-0.7 [facility] Comment on above: Performed By: #### C BC #### [facility] [address] [address] [address] Michelle Newell Eosinophils/100 WBC (Bld) 4.6 % Normal 0.9-7.0 [facility] Comment on above: Performed By: #### C BC #### [facility] [address] [address] [address] Michelle Newell Erythrocyte distribution width (RBC) [Ratio] 12.2 % Normal 11.0-15.0 [facility] Comment on above: Performed By: #### C BC #### [facility] [address] [address] [address] Michelle Newell Hematocrit (Bld) [Volume fraction] 45.4 % Normal 42.0-54.0 [facility] Comment on above: Performed By: #### C BC #### [facility] [address] [address] [address] Michelle Newell Hemoglobin (Bld) [Mass/Vol] 15.4 g/dL Normal 14.0-18.0 [facility] Comment on above: Performed By: #### C BC #### [facility] [address] [place] [address] Dr. Michelle Newell IG # 0.02 10e3/ul Normal 0.00-0.03 [facility] Comment on above: Performed By: #### C BC #### [facility] [address] [place] [address] Dr. Michelle Newell IG % 0.3 % Normal 0.0-0.5 [facility] Comment on above: Performed By: #### C BC #### [facility] [address] [place] [address] Dr. Michelle Newell LYMPH # 1.8 103/ul Normal 1.2-3.8 [facility] Comment on above: Performed By: #### C BC #### [facility] [address] [place] [address] Dr. Michelle Newell Lymphocytes/100 WBC (Bld) 24.5 % Normal 20.5-60.0 [facility] Comment on above: Performed By: #### C BC #### [facility] [address] [place] [address] Dr. Michelle Newell MANUAL DIFF REQ NO Normal [facility] Comment on above: Performed By: #### C BC #### [facility] [address] [place] [address] Dr. Michelle Newell MCH (RBC) [Entitic mass] 30.9 pg Normal 25.9-34.0 [facility] Comment on above: Performed By: #### C BC #### [facility] [address] [place] [address] Dr. Michelle Newell MCHC (RBC) [Mass/Vol] 33.9 g/dL Normal 29.9-35.2 [facility] Comment on above: Performed By: #### C BC #### [facility] [address] [place] [address] Dr. Michelle Newell MCV (RBC) [Entitic vol] 91.2 fL Normal 80.0-94.0 [facility] Comment on above: Performed By: #### C BC #### [facility] [address] [place] [address] Dr. Michelle Newell MONO # 0.8 103/ul Normal 0.3-0.8 [facility] Comment on above: Performed By: #### C BC #### [facility] [address] [place] [address] Dr. Michelle Newell Monocytes/100 WBC (Bld) 10.8 % Normal 1.7-12.0 [facility] Comment on above: Performed By: #### C BC #### [facility] [address] [place] [address] Dr. Michelle Newell NEUT # 4.3 103/ul Normal 1.4-6.5 [facility] Comment on above: Performed By: #### C BC #### [facility] [address] [place] [address] Dr. Michelle Newell Neutrophils/100 WBC (Bld) 58.7 % Normal 43.0-75.0 [facility] Comment on above: Performed By: #### C BC #### [facility] [address] [place] [address] Dr. Michelle Newell Platelet mean volume (Bld) [Entitic vol] 10.2 fL Normal 9.5-13.5 [facility] Comment on above: Performed By: #### C BC #### [facility] [address] [place] [address] Dr. Michelle Newell PLT 326 103/ul Normal 150-450 [facility] Comment on above: Performed By: #### C BC #### [facility] [address] [place] [address] Dr. Michelle Newell RBC 4.98 106/ul Normal 4.70-6.10 [facility] Comment on above: Performed By: #### C BC #### [facility] [address] [place] [address] Dr. Michelle Newell WBC 7.3 103/ul Normal 4.0-11.0 [facility] Comment on above: Performed By: #### C BC #### [facility] [address] [place] [address] Dr. Michelle Newell LIPID PROFILEon 03-12-2022 CHOL-HDL RATIO NORM SEE BELOW Normal [facility] Comment on above: Result Comment: 3.3 - 4.4 LOW RISK 4.4 - 7.1 AVERAGE RISK 7.1 - 11.0 MODERATE RISK >11.0 HIGH RISK Performed By: #### L IPID, TSH, CMP #### [facility] [address] [address] [address] Michelle Newell Cholesterol [Mass/Vol] 155 mg/dL Normal <=200 [facility] Comment on above: Performed By: #### L IPID, TSH, CMP #### [facility] [address] [address] [address] Michelle Newell Cholesterol in HDL [Mass/Vol] 70 mg/dL Critically high 40-60 [facility] Comment on above: Performed By: #### L IPID, TSH, CMP #### [facility] [address] [address] [address] Michelle Newell Cholesterol in LDL [Mass/Vol] 76.2 mg/dL Normal [facility] Comment on above: Performed By: #### L IPID, TSH, CMP #### [facility] [address] [address] [address] Michelle Newell Cholesterol.total/Ch olesterol in HDL [Mass ratio] 2.2 {ratio} Normal [facility] Comment on above: Performed By: #### L IPID, TSH, CMP #### [facility] [address] [address] [address] Michelle Newell HDL NORMAL > or = 60 mg/dl - LO W CARDIOVASCULAR RISK <40 mg/dl - HIGH CARDIOVASCULAR RISK Normal [facility] Comment on above: Performed By: #### L IPID, TSH, CMP #### [facility] [address] [address] [address] Michelle Newell LDL CALC NORMAL SEE BELOW Normal [facility] Comment on above: Result Comment: <100 mg/dl OPTIMAL 100 - 129 mg/dl NEAR OR ABOVE OPTIMAL 130 - 159 mg/dl BORDERLINE HIGH 160 - 189 mg/dl HIGH >190 mg/dl VERY HIGH Performed By: #### L IPID, TSH, CMP #### [facility] [address] [address] [address] Michelle Newell Triglyceride [Mass/Vol] 44 mg/dL Normal <=150 [facility] Comment on above: Performed By: #### L IPID, TSH, CMP #### [facility] [address] [address] [address] Michelle Newell VLDL CALC 8.8 mg/dL Normal [facility] Comment on above: Performed By: #### L IPID, TSH, CMP #### [facility] [address] [address] [address] Michelle Newell MICROALB CREAT RATIO RANDOMo n 03-12-2022 mALB <1.3 Normal <=30.0 [facility] Comment on above: Performed By: #### M CRR #### [facility] [address] [place] [address] Dr. Michelle Newell MALB CR RATIO 7.6 mg/g Normal 0.0-29.9 [facility] Comment on above: Performed By: #### M CRR #### [facility] [address] [address] [address] Michelle Newell MALB CR RATIO RANGE SEE BELOW Normal [facility] Comment on above: Result Comment: NO M ICROALBUMINURIA 0-29 MG/G CLINICAL MICROALBUMINURIA 30-300 MG/G MACROALBUMINURIA >300 MG/G Performed By: #### M CRR #### [facility] [address] [address] [address] Michelle Newell URINE CREAT 170.74 mg/dL Normal 20.00-300.00 [facility] Comment on above: Performed By: #### M CRR #### [facility] [address] [place] [address] Dr. Michelle Newell PROF 14(COMP METB)on 022 Albumin [Mass/Vol] 4.2 g/dL Normal 3.4-5.0 [facility] Comment on above: Performed By: #### L IPID, TSH, CMP #### [facility] [address] [address] [address] Michelle Newell Albumin/Globulin [Mass ratio] 1.2 {ratio} Normal [facility] Comment on above: Performed By: #### L IPID, TSH, CMP #### [facility] [address] [place] [address] Dr. Michelle Newell ALP [Catalytic activity/Vol] 130 U/L Critically high 46-116 [facility] Comment on above: Performed By: #### L IPID, TSH, CMP #### [facility] [address] [place] [address] Dr. Michelle Newell ALT [Catalytic activity/Vol] 30 U/L Normal 16-63 [facility] Comment on above: Performed By: #### L IPID, TSH, CMP #### [facility] [address] [place] [address] Dr. Michelle Newell Anion gap [Moles/Vol] 7.3 mmol/L Normal [facility] Comment on above: Performed By: #### L IPID, TSH, CMP #### [facility] [address] [place] [address] Dr. Michelle Newell AST [Catalytic activity/Vol] 19 U/L Normal 15-37 [facility] Comment on above: Performed By: #### L IPID, TSH, CMP #### [facility] [address] [place] [address] Dr. Michelle Newell Bilirubin [Mass/Vol] 0.5 mg/dL Normal 0.2-1.0 [facility] Comment on above: Performed By: #### L IPID, TSH, CMP #### [facility] [address] [place] [address] Dr. Michelle Newell Calcium [Mass/Vol] 8.9 mg/dL Normal 8.5-10.1 [facility] Comment on above: Performed By: #### L IPID, TSH, CMP #### [facility] [address] [place] [address] Dr. Michelle Newell Chloride [Moles/Vol] 101 mmol/L Normal 98-107 [facility] Comment on above: Performed By: #### L IPID, TSH, CMP #### [facility] [address] [place] [address] Dr. Michelle Newell CO2 [Moles/Vol] 34.6 mmol/L Critically high 21.0-32.0 [facility] Comment on above: Performed By: #### L IPID, TSH, CMP #### [facility] [address] [address] [address] Michelle Newell Creatinine [Mass/Vol] 0.75 mg/dL Normal 0.70-1.30 [facility] Comment on above: Performed By: #### L IPID, TSH, CMP #### [facility] [address] [address] [address] Michelle Newell EGFR-AF MAURITANIAN >60 Normal >=60 [facility] Comment on above: Performed By: #### L IPID, TSH, CMP #### [facility] [address] [address] [address] Michelle Newell EGFR-NON AF MAURITANIAN >60 Normal >=60 [facility] Comment on above: Performed By: #### L IPID, TSH, CMP #### [facility] [address] [address] [address] Michelle Newell Globulin (S) [Mass/Vol] 3.4 g/dL Normal [facility] Comment on above: Performed By: #### L IPID, TSH, CMP #### [facility] [address] [address] [address] Michelle Newell Glucose [Mass/Vol] 131 mg/dL Critically high 74-106 [facility] Comment on above: Performed By: #### L IPID, TSH, CMP #### [facility] [address] [address] [address] Michelle Newell Potassium [Moles/Vol] 3.9 mmol/L Normal 3.5-5.1 [facility] Comment on above: Performed By: #### L IPID, TSH, CMP #### [facility] [address] [address] [address] Michelle Newell Protein [Mass/Vol] 7.6 g/dL Normal 6.4-8.2 [facility] Comment on above: Performed By: #### L IPID, TSH, CMP #### [facility] [address] [address] [address] Michelle Newell Sodium [Moles/Vol] 139 mmol/L Normal 136-145 [facility] Comment on above: Performed By: #### L IPID, TSH, CMP #### [facility] [address] [address] [address] Michelle Newell Urea nitrogen [Mass/Vol] 11.0 mg/dL Normal 7.0-18.0 [facility] Comment on above: Performed By: #### L IPID, TSH, CMP #### [facility] [address] [address] [address] Michelle Newell Urea nitrogen/Creatinine [Mass ratio] 14.7 mg/mg Normal [facility] Comment on above: Performed By: #### L IPID, TSH, CMP #### [facility] [address] [address] [address] Michelle Newell TSHon 03-12-2022 TSH 4.267 uIU/mL Critically high 0.358-3.740 [facility] Comment on above: Performed By: #### L IPID, TSH, CMP #### [facility] [address] [address] [address] Michelle Newell Pathology Noteon 07-30-2021 Pathology Note [id number] .00CD:127 Normal [facility] Outside Colonoscopyon 2021 Outside Colonoscopy [id number]. 00CD:127 Normal [facility] Reminderson 07-29-2021 Reminders - From: Etelvina Saxena LPN To: N - Clinical; Sent: 07/29/2021 09:57:59 EDT Show up: 06/28/2031 07:00:00 EST Subject: colonoscopy recall Due Date/Time: 07/29/2031 07:00:00 EDT Reminder/Recall Patient is due for screening colonoscopy 07/29/2031. Normal [facility] Lab Reportson 07-26-2021 Lab Reports [id number] .00CD:127 Normal [facility] Covid-19 PCR (CVDTBH)on 06-30 SARS-CoV-2 (COVID-19) RNA FRANCE+probe Ql (Unsp spec) Not detected Normal NOT DETECTED [facility] Comment on above: Result Comment: When diagnostic testing is negative, the possibility of a false negative should be considered in the context of a patient's recent exposures and the presence of clinical signs and symptoms consistent with SARS-CoV-2. This test is not yet approved or cleared by the [place] Food and Drug Administration (FDA). This test was developed by [employer], [place], [place]. The performance characteristics of this test were validated by [facility]. The results are not intended to be used as the sole means for clinical diagnosis or patient management decisions. The [facility] is authorized under Clinical Laboratory [...] for this test is supported by the Tool[employer] Checker of Health and Human Service's declaration that [...] longer be used). Performed By: #### [facility] #### [facility] [address] [place] [address] Dr. Michelle Newell Consent for Procedure/Surger yon 07-15-2021 Consent for Procedure/Surgery [id number] .00CD:127 Normal [facility] Physician Referralon 022 Physician Referral [id number] .00CD:127 Normal [facility] Vital Signs Date Time Vital Sign Value Performing Clinician Facility 10-06-2023 10:24-0400 Body height 172.72 cm [facility] 10-06-2023 10:24-0400 Body mass index (BMI) [Ratio] 29 kg/m2 [facility] 10-06-2023 10:24-0400 Body weight 86.8 kg [facility] 10-06-2023 10:24-0400 Diastolic blood pressure 80 mm[Hg] [facility] 10-06-2023 10:24-0400 Heart rate 75 /min [facility] 10-06-2023 10:24-0400 Respiratory rate 12 /min [facility] 10-06-2023 10:24-0400 Systolic blood pressure 130 mm[Hg] [facility] 09-30-2022 10:00-0400 Body height 172.72 cm Stalin Ball Other [facility] Other 09-30-2022 10:00-0400 Body mass index (BMI) [Ratio] 28.67 kg/m2 Stalin Ball Other [facility] Other 09-30-2022 10:00-0400 Body weight 85.55 kg Stalin Ball Other [facility] Other 09-30-2022 10:00-0400 Diastolic blood pressure 80 mm[Hg] Stalin Ball Other [employer] Other 09-30-2022 10:00-0400 Respiratory rate 12 /min Stalin Ball Other [employer] Other 09-30-2022 10:00-0400 Systolic blood pressure 135 mm[Hg] Stalin Ball Other [facility] Other Encounters Encounter Date Encounter Type Care Provider Facility Start: 10-11-2023 End: 10-11-2023 ambulatory AP CABRERA Not Available Start: 10-06-2023 End: 10-06-2023 ambulatory [facility] Work Phone: Start: 10-06-2023 End: 10-06-2023 Encounter for general adult medical examination without abnormal findings [facility] Start: 10-06-2023 End: 10-06-2023 Patient encounter procedure [facility] Work Phone: Start: 09-29-2023 Non-patient / Non-visit [facility] [employer] Work Phone: Start: 09-01-2023 End: 09-01-2023 ambulatory YOHANA JOHNSON Not Available Start: 04-14-2023 End: 04-14-2023 ambulatory YOHANA JOHNSON Not Available Start: 01-18-2023 End: 01-18-2023 ambulatory Stalin Borjas Other [employer] Other Start: 01-18-2023 Telephone encounter Stalin Borjas [facility] Start: 10-24-2022 End: 10-24-2022 ambulatory Stalin Borjas Other [employer] Other Start: 10-24-2022 Telephone encounter Stalin Borjas [facility] Start: 10-18-2022 End: 10-18-2022 ambulatory Stalin Borjas Other [employer] Other Start: 10-18-2022 Telephone encounter Stalin Ball [facility] Start: 09-30-2022 End: 09-30-2022 ambulatory Stalin Ball Other [employer] Other Start: 09-30-2022 Encounter for genera l adult medical examination without abnormal findings Stalin Borjas [facility] Start: 09-30-2022 Periodic preventive med est patient 40-64yrs Stalin Borjas [facility] Start: 03-15-2022 Encounter for genera l adult medical examination without abnormal findings DR YOHANA JOHNSON [facility] Start: 03-12-2022 End: 03-13-[address] YOHANA JOHNSON Facility:[facility] Start: 03-12-2022 End: 03-13-2022 Encounter for general adult medical examination without abnormal findings DR YOHANA JOHNSON Facility:[facility] Start: 09-21-2021 End: 09-21-2021 ambulatory Ubaldo Oledelio Other [employer] Other Start: 09-21-2021 Office outpatient vi sit 15 minutes Ubaldo Olexa [facility] Start: 08-10-2021 End: 09-24-2021 ambulatory UBALDO OLEDELIO Facility:[facility] Start: 07-28-2021 Encounter for preprocedural laboratory examination DR ELIZ CHICAS [facility] Start: 07-28-2021 End: 07-28-[address] ELIZ CHICAS Facility:[facility] Start: 07-27-2021 End: 07-28-2021 ambulatory UBALDO PORRAS [facility] Other Start: 07-27-2021 Office outpatient ne w 30 minutes Ubaldo Olexa [facility] Start: 07-24-2021 End: 07-25-[address] ELIZ CHICAS Facility:[facility] Start: 07-24-2021 End: 07-25-2021 Encounter for preprocedural laboratory examination DR ELIZ CHICAS Facility:[facility] Start: 07-03-[address] STALIN BORJAS Facili ty:[facility]1 Start: 06-29-2021 Encounter for genera l adult medical examination without abnormal findings Stalin Borjas Other [employer] Other Procedures Date Procedure Procedure Detail Performing Clinician Depression screening Dank Borjas Other Plan of Treatment Date Care Activity Detail Author [facility] Immunizations Immunization Date Immunization Notes Care Provider Fa rafia 04-13-2021 influenza, injectabl e, quadrivalent, contains preservative Stalin Borjas Other [employer] Other 04-13-2021 influenza, injectabl e, quadrivalent, preservative free [facility] 02-24-2021 COVID-19 Vaccine Moderna - Documentation Purposes Only Stalin Borjas Other [facility] 08-09-2020 COVID-19 Vaccine Moderna - Documentation Purposes Only Stalin Borjas Other [facility] 07-13-2020 COVID-19 Vaccine Moderna - Documentation Purposes Only Stalin Borjas Other [facility] Payers Date Payer Category Payer [facility] [id number] 2019 Unknown [id number] 1973 Unknown [id number] 2.16.84 [id number] 1973 Unknown [id number] 2.16.84 [id number] 1973 Unknown [id number] 2.16.84 [id number] 1973 Unknown [id number] 2.16.84 [id number] 1973 Unknown [id number] 2.16.84 [id number] 1973 Unknown [id number] 2.16.84 [id number] 1973 Unknown [id number] 2.16.84 [id number] 1973 Unknown [id number] 2.16.84 [id number] 1973 Unknown [id number] 1959 Private Health Insurance [id number] 1961 Self-pay Social History Date Type Detail Facility Sex Assigned At [employer] Other Start: 09-21-2021 Tobacco smoking stat us NHIS Ex-smoker (finding) [facility] Start: 1975 Sex Assigned At Male [facility] Clinical Notes 07-14-2021 to 01-18-2023 Note Date & Type Note Facility 01-18-2023 Evaluation note Encounter Date Diagnosis Assessment Notes Dec, 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 (ICD-10 - E10.3553) [employer] Other 06-26-2023 Evaluation note* Encounter Date Diagnosis Assessment Notes Treatment Notes Treatment Clinical Notes Sep, AKIN (obstructive sleep apnea) (ICD-10 - G47.33) AHI 18 Psat 79% [employer] Other 06-20-2023 Evaluation note* Encounter Date Diagnosis Assessment Notes Treatment Notes Treatment Clinical Notes Sep, Allergic contact dermatitis due to plants, except food (ICD-10 - L23.7) [employer] Other 06-02-2023 Evaluation note* Encounter Date Diagnosis [...] will send referral for home sleep study [employer] Other 05-24-2022 Evaluation note* Encounter Date Diagnosis [...] capsulitis of left shoulder (ICD-10 - M75.02) [employer] Other 03-30-2022 NoteOPERATIVE NOTE PREOPERATIVE DIAGNOSIS: Colorectal [...] in 10 years. CC: Stalin Borjas D.O. [facility] Signed and Approved by: DR ELIZ CHICAS . 07/30/2021 05:17:00[facility]03-30-2022 NoteOPERATIVE NOTE PREOPERATIVE DIAGNOSIS: Colorectal screening. POSTOPERATIVE [...] 10 years. CC: Stalin Borjas D.O. : [facility] Signed and Approved by: DR ELIZ CHICAS . 07/30/2021 05:17:00[facility]03-29-2022 NotePROCEDURE: XR SHOULDER MACRINA 2V or > [...] Electronically authenticated by: SAY VILLASENOR Date: 2021-07-27 17:23[facility]03-29-2022 Evaluation note* Encounter Date Diagnosis Assessment Notes [...] motion exercise. Formal order of physical therapy. [employer] Other 03-16-2022 NoteChief Complaint consultation for colonoscopy [...] Date Status influenza virus vaccine, [facility] Comment on above:Result Comment: Electronically Signed By: ZULEMA PICHARDO, Eliz Richards\Date and Time Signed: 07/14/21 17:02 EDTEvaluation note* Diagnosis Onset Date Resolution Status Benign prostatic hyperplasia with lower urinary tract symptoms acute AKIN (obstructive sleep apnea) acute Overweight acute Type 1 diabetes mellitus with hyperglycemia acute Screening PSA (prostate specific antigen) noneactive Wellness examination noneact [facility] Work Phone: [facility] Narrative - Reported* Type Description Date Medical History diabetes mallitus Surgical History carpal tunnel release [employer] [facility] Other [facility] Narrative - Reported* Type Description Date Medical History diabetes mallitus Medical History Pure hypercholesterolemia Medical History Adhesive capsulitis of right marsha ulder Medical History HAILEY (generalized anxiety disorde r) Surgical History carpal tunnel release- BILATERA L 2014 Surgical History COLONOSCOPY 2021 Hospitalization History SEE SURGICAL [employer] Other [facility] general Narrative - Reported* Type Description Date Medical History diabetes mallitus Medical History Pure hypercholesterolemia Medical History Adhesive capsulitis of right marsha ulder Medical History HAILEY (generalized anxiety disorde r) Medical History KAIN Surgical History carpal tunnel release- BILATERA L 2014 Surgical History COLONOSCOPY 2021 Hospitalization History SEE SURGICAL [employer] Other [facility] general Narrative - Reported* Type Description Date Medical History diabetes mallitus Medical History Pure hypercholesterolemia Medical History Adhesive capsulitis of right marsha ulder Medical History HAILEY (generalized anxiety disorde r) Medical History AKIN Medical History Proliferative diabetic retinopat hy Surgical History carpal tunnel release- BILATERA L 2014 Surgical History COLONOSCOPY 2021 Hospitalization History SEE SURGICAL HX [facility] Other Summary Purpose Family History No Family History Records FoundNo Family History Records FoundNo Family History Records Found Advance Directives No Advanced Directives Records Found Advance Directive Response Recorded Date/ Time Advance Directives No October 05 9:51am Chief Complaint and Reason for Visit Chief Complaint wellness Reason for Visit Benign prostatic hyp erplasia with lower urinary tract symptoms AKIN (obstructive sleep apnea) Overweight Type 1 diabetes mellitus with hyperglycemia Screening PSA (prostate specific antigen) Wellness examination Additional Source Comments (unrecognized sect ion and content) No Status Records FoundNo Status Records FoundNo Status Records Found INFORMATION SOURCE (unrecogn ized section and content) DATE CREATED AUTHOR 08/22/2021 [facility]es [facility] DATE CREATED AUTHOR AUTHOR'S ORGANIZ ATION 03/23/2022 [facility] DATE CREATED AUTHOR AUTHOR'S ORGANIZ ATION 10/12/2023 [facility] EPIC REASON FOR VISIT (unrecogniz ed section and content) CONSULT DR ERIKA NICOLE SHOULD ER PAIN NXRecheck Bilateral ShouldersWellnessMedicationNo InformationNo Information Care Teams (unrecognized sec tion and content) Team Status: Active Member Role Status Dates Stalin Borjas DO Primary Care Provider Active Team Status: Active Member Role Status Jesús Borjas DO Primary Care Provide r, Attending Provider Active Start: September 29, 2023 Team Status: Inactive Member Role Status Dates Stalin Borjas DO Primary Care Provide r, Attending Provider Active Start: October 06, 2023 End: October 06, 2023 Goals (unrecognized section and content) Goals may be documented in a n alternate section FOR RECORDS PERTAINING TO PATIENTS WHO ARE [...] BE BASED ON THE PRIMARY CLINICAL RECORDS. [facility] [employer] [facility]. provides no warranty or guarantee of the accuracy or completeness of information in this document.
[2023-10-13 08:50] LABS: Thyroid Stimulating Hormone 5.388 uIU/mL (0.358-3.740)
[2023-10-14 04:08] LABS: Testosterone 282 ng/dL (264-916)
== END 2023-10-13 07:29 | disposition home or self-care (01) ==
LOC: LAB 07:29
PROVIDERS: PCP Internal Medicine; Visit Provider Internal Medicine
DX: R53.83 Other fatigue (principal)
CPT/HCPCS: 36415; 84403; 84443

== ENCOUNTER 2023-12-15 08:24 | Outpatient (OUT) | payer BC, SELFPAY ==
--- OUTSIDE RECORDS SUMMARY | 2023-12-15 08:29 | XMS_ITS | CCD ---
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 Name Role Phone Aubrey Ubaldo Unavailable ERIKA, [...] daily Atorvastatin Active 20 MG PO Daily October 06, 2023 10:43am escitalopram 20 mg oral tablet (2 sources) Serotonin Reuptake Inhibitor Start: 10-06-2023 End: 10-06-2023 take 1 tablet by mouth once daily Escitalopram Oxalate (Lexapro) 20 mg tablet Active 20 MG PO Daily October 06, 2023 10:43am Hydrocortisone / Neomycin / Polymyxin B (6 sources) Aminoglycoside Antibacterial, Polymyxin-class Antibacterial, Corticosteroid Start: 06-18-2013 Cortisporin 3.5-26305-6 4 drops into affected ear Otic Three times a day for 7 days Jun, Active Insulin Aspart (B3) Pump Cart (1 [...] Episodic Other aftercare (1 source) 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; Translations: [OTH [facility] CURRENT DRUG THERAPY] Onset: 08-05-2021 Episodic Other [...] [#/Vol] 0.1 10 3/uL 0.0-0.1 [facility] Basophils/100 WBC Auto (Bld) on 09-29-2023 Basophils/100 WBC (Bld) 0.8 % 0.2-2.0 [facility] Cholesterol in LDL Calc [Mas s/Vol]on 09-29-2023 Cholesterol in LDL [Mass/Vol] 92.0 mg/dL [facility] Comment on above: <100 mg/dl [id number] 0-129 mg/dl NEAR OR ABOVE [id number] mg/dl BORDERLINE [id number] mg/dl HIGH>190 mg/dl VERY HIGH Cholesterol in VLDL Calc [Ma ss/Vol]on 09-29-2023 Cholesterol in VLDL [Mass/Vol] 10.2 mg/dL [facility] Eosinophils/100 WBC Auto (Bl d)on 09-29-2023 Eosinophils/100 WBC (Bld) 3.9 % 0.9-7.0 [facility] Erythrocyte distribution wid th Auto (RBC) [Ratio]on 09-29-2023 Erythrocyte distribution width (RBC) [Ratio] 12.2 % 11.0-15.0 [facility] Estimated glomerular filtrat ion rate (GFR) non- Americanon 09-29-2023 GFR/1.73 sq M.predicted among non-blacks MDRD (S/P/Bld) [Vol rate/Area] mL/min/{1.73_m2} >=60 [facility] Globulin Calc (S) [Mass/Vol] on 09-29-2023 Globulin (S) [Mass/Vol] 3.4 g/dL [facility] Glucose mean value [Mass/vol ume] in Blood Estimated from glycated hemoglobinon 09-29-2023 Average glucose Estimated from glycated hemoglobin (Bld) [Mass/Vol] 157 mg/dL [facility] Hematocrit Auto (Bld) [Volum e fraction]on 09-29-2023 Hematocrit (Bld) [Volume fraction] 43.1 % 42.0-54.0 [facility] Hemoglobin [Mass/volume] in Bloodon 09-29-2023 Hemoglobin (Bld) [Mass/Vol] 14.2 g/dL 14.0-18.0 [facility] Laboratory - Chemistry and C hemistry - challengeon 09-29-2023 Albumin [Mass/Vol] 3.7 g/dL 3.4-5.0 [facility] ALP [Catalytic activity/Vol] 141 U/L 46-116 [facility] ALT [Catalytic activity/Vol] 58 U/L 16-63 [facility] AST [Catalytic activity/Vol] 28 U/L 15-37 [facility] Bilirubin [Mass/Vol] 0.7 mg/dL 0.2-1.0 [facility] Calcium [Mass/Vol] 8.6 mg/dL 8.5-10.1 [facility] Chloride [Moles/Vol] 103 mmol/L 98-107 [facility] Cholesterol [Mass/Vol] 174 mg/dL <=200 [facility] Cholesterol in HDL [Mass/Vol] 72 mg/dL 40-60 [facility] Comment on above: > or =60 mg/dl - LOW CARDIOVASCULAR RISK<40 mg/dl - HIGH CARDIOVASCULAR RISK CO2 [Moles/Vol] 31.6 mmol/L 21.0-32.0 [facility] Creatinine [Mass/Vol] 0.80 mg/dL 0.70-1.30 [facility] GFR/1.73 sq M.predicted MDRD (S/P/Bld) [Vol rate/Area] mL/min/{1.73_m2} >=60 [facility] Glucose [Mass/Vol] 128 mg/dL 74-106 [facility] Potassium [Moles/Vol] 3.7 mmol/L 3.5-5.1 [facility] Protein [Mass/Vol] 7.1 g/dL 6.4-8.2 [facility] Sodium [Moles/Vol] 141 mmol/L 136-145 [facility] Triglyceride [Mass/Vol] 51 mg/dL <=150 [facility] Urea nitrogen [Mass/Vol] 16.0 mg/dL 7.0-18.0 [facility] Urea nitrogen/Creatinine [Mass ratio] 20.0 mg/mg [facility] Laboratory - Hematology and Cell countson 09-29-2023 HbA1c (Bld) [Mass fraction] 7.1 % 4.5-6.2 [facility] Comment on above: ADA RECOMMENDED LIMI T 4.0 - 6.0ADA THERAPEUTIC TARGET < 7.0ACTION SUGGESTED> 7.0 Immature granulocytes/100 WBC (Bld) 0.4 % 0.0-0.5 [facility] Leukocytes [#/volume] correc feng for nucleated erythrocytes in Blood by Automated counon 09-29-2023 WBC corrected for nucl RBC Auto (Bld) [#/Vol] 7.1 10 3/uL 4.0-11.0 [facility] Lymphocytes Auto (Bld) [#/Vo l]on 09-29-2023 Lymphocytes (Bld) [#/Vol] 1.5 10 3/uL 1.2-3.8 [facility] Lymphocytes/100 WBC Auto (Bl d)on 09-29-2023 Lymphocytes/100 WBC (Bld) 21.2 % 20.5-60.0 [facility] MCH Auto (RBC) [Entitic mass ]on 09-29-2023 MCH (RBC) [Entitic mass] 30.5 pg 25.9-34.0 [facility] MCHC Auto (RBC) [Mass/Vol]on 09-29-2023 MCHC (RBC) [Mass/Vol] 32.9 g/dL 29.9-35.2 [facility] MCV Auto (RBC) [Entitic vol] on 09-29-2023 MCV (RBC) [Entitic vol] 92.5 fL 80.0-94.0 [facility] Microalbumin [Mass/volume] i n Urineon 09-29-2023 Albumin DL <= 20 mg/L (U) [Mass/Vol] mg/dL <=30.0 [facility] Monocytes Auto (Bld) [#/Vol] on 09-29-2023 Monocytes (Bld) [#/Vol] 0.7 10 3/uL 0.3-0.8 [facility] Monocytes/100 WBC Auto (Bld) on 09-29-2023 Monocytes/100 WBC (Bld) 10.3 % 1.7-12.0 [facility] Neutrophils Auto (Bld) [#/Vo l]on 09-29-2023 Neutrophils (Bld) [#/Vol] 4.5 10 3/uL 1.4-6.5 [facility] Neutrophils/100 WBC Auto (Bl d)on 09-29-2023 Neutrophils/100 WBC (Bld) 63.4 % 43.0-75.0 [facility] No Panel Informationon 09-28 Eosinophils # (Auto) 0.3 10 3/uL 0.0-0.7 [facility] Immature Granulocyte # (Auto) 0.03 10 3/uL 0.00-0.03 [facility] Prostate Specific Antigen Screen 0.26 ng/mL <=4.00 [facility] Platelet mean volume Auto (B ld) [Entitic vol]on 09-29-2023 Platelet mean volume (Bld) [Entitic vol] 10.1 fL 9.5-13.5 [facility] Platelets Auto (Bld) [#/Vol] on 09-29-2023 Platelets (Bld) [#/Vol] 331 10 3/uL 150-450 [facility] RBC Auto (Bld) [#/Vol]on RBC (Bld) [#/Vol] 4.66 10 6/uL 4.70-6.10 [facility] Serum or plasma albumin/glob ulin mass ratioon 09-29-2023 Albumin/Globulin [Mass ratio] 1.1 {ratio} [facility] Serum or plasma anion gap de terminationon 09-29-2023 Anion gap [Moles/Vol] 10.1 mmol/L [facility] Serum or plasma total choles terol/high density lipoprotein (HDL) cholesterol mass jing 09-29-2023 Cholesterol.total/Ch olesterol in HDL [Mass ratio] 2.4 {ratio} [facility] Comment on above: 3.3 - 4.4 LOW RISK4. 4 - 7.1 AVERAGE RISK7.1 - 11.0 MODERATE RISK>11.0 HIGH RISK CBC AUTO DIFFon 03-12-2022 BASO # 0.1 103/ul Normal 0.0-0.1 [facility] Comment on above: Performed By: #### C BC #### Laboratory [address] [place] [address] Dr. Michelle Newell Basophils/100 WBC (Bld) 1.1 % Normal 0.2-2.0 [facility] Comment on above: Performed By: #### C BC #### Laboratory [address] [place] [address] Dr. Michelle Newell EO # 0.3 103/ul Normal 0.0-0.7 [facility] Comment on above: Performed By: #### C BC #### Laboratory [address] [place] [address] Dr. Michelle Newell Eosinophils/100 WBC (Bld) 4.6 % Normal 0.9-7.0 [facility] Comment on above: Performed By: #### C BC #### Laboratory [address] [place] [address] Dr. Michelle Newell Erythrocyte distribution width (RBC) [Ratio] 12.2 % Normal 11.0-15.0 [facility] Comment on above: Performed By: #### C BC #### Laboratory [address] [place] [address] Dr. Michelle Newell Hematocrit (Bld) [Volume fraction] 45.4 % Normal 42.0-54.0 [facility] Comment on above: Performed By: #### C BC #### Laboratory [address] [place] [address] Dr. Michelle Newell Hemoglobin (Bld) [Mass/Vol] 15.4 g/dL Normal 14.0-18.0 [facility] Comment on above: Performed By: #### C BC #### Laboratory [address] [place] [address] Dr. Michelle Newell IG # 0.02 10e3/ul Normal 0.00-0.03 [facility] Comment on above: Performed By: #### C BC #### Laboratory [address] [place] [address] Dr. Michelle Newell IG % 0.3 % Normal 0.0-0.5 [facility] Comment on above: Performed By: #### C BC #### Laboratory [address] [place] [address] Dr. Michelle Newell LYMPH # 1.8 103/ul Normal 1.2-3.8 [facility] Comment on above: Performed By: #### C BC #### Laboratory [address] [place] [address] Dr. Michelle Newell Lymphocytes/100 WBC (Bld) 24.5 % Normal 20.5-60.0 [facility] Comment on above: Performed By: #### C BC #### Laboratory [address] [place] [address] Dr. Michelle Newell MANUAL DIFF REQ NO Normal [facility] Comment on above: Performed By: #### C BC #### Laboratory [address] [place] [address] Dr. Michelle Newell MCH (RBC) [Entitic mass] 30.9 pg Normal 25.9-34.0 [facility] Comment on above: Performed By: #### C BC #### Laboratory [address] [place] [address] Dr. Michelle Newell MCHC (RBC) [Mass/Vol] 33.9 g/dL Normal 29.9-35.2 [facility] Comment on above: Performed By: #### C BC #### Laboratory [address] [place] [address] Dr. Michelle Newell MCV (RBC) [Entitic vol] 91.2 fL Normal 80.0-94.0 [facility] Comment on above: Performed By: #### C BC #### Laboratory [address] [place] [address] Dr. Michelle Newell MONO # 0.8 103/ul Normal 0.3-0.8 [facility] Comment on above: Performed By: #### C BC #### Laboratory [address] [address] [address] Michelle Newell Monocytes/100 WBC (Bld) 10.8 % Normal 1.7-12.0 [facility] Comment on above: Performed By: #### C BC #### Laboratory [address] [address] [address] Michelle Newell NEUT # 4.3 103/ul Normal 1.4-6.5 [facility] Comment on above: Performed By: #### C BC #### Laboratory [address] [place] [address] Dr. Michelle Newell Neutrophils/100 WBC (Bld) 58.7 % Normal 43.0-75.0 [facility] Comment on above: Performed By: #### C BC #### Laboratory [address] [place] [address] Dr. Michelle Newell Platelet mean volume (Bld) [Entitic vol] 10.2 fL Normal 9.5-13.5 [facility] Comment on above: Performed By: #### C BC #### Laboratory [address] [place] [address] Dr. Michelle Nweell PLT 326 103/ul Normal 150-450 [facility] Comment on above: Performed By: #### C BC #### Laboratory [address] [place] [address] Dr. Michelle Newell RBC 4.98 106/ul Normal 4.70-6.10 [facility] Comment on above: Performed By: #### C BC #### Laboratory [address] [place] [address] Dr. Michelle Newell WBC 7.3 103/ul Normal 4.0-11.0 [facility] Comment on above: Performed By: #### C BC #### Laboratory [address] [place] [address] Dr. Michelle Newell LIPID PROFILEon 03-12-2022 CHOL-HDL RATIO NORM SEE BELOW Normal [facility] Comment on above: Result Comment: 3.3 - 4.4 LOW RISK 4.4 - 7.1 AVERAGE RISK 7.1 - 11.0 MODERATE RISK >11.0 HIGH RISK Performed By: #### L IPID, TSH, CMP #### Laboratory [address] [place] [address] Dr. Michelle Newell Cholesterol [Mass/Vol] 155 mg/dL Normal <=200 [facility] Comment on above: Performed By: #### L IPID, TSH, CMP #### Laboratory [address] [address] [address] Michelle Newell Cholesterol in HDL [Mass/Vol] 70 mg/dL Critically high 40-60 [facility] Comment on above: Performed By: #### L IPID, TSH, CMP #### Laboratory [address] [place] [address] Dr. Michelle Newell Cholesterol in LDL [Mass/Vol] 76.2 mg/dL Normal [facility] Comment on above: Performed By: #### L IPID, TSH, CMP #### Laboratory [address] [place] [address] Dr. Michelle Newell Cholesterol.total/Ch olesterol in HDL [Mass ratio] 2.2 {ratio} Normal [facility] Comment on above: Performed By: #### L IPID, TSH, CMP #### Laboratory [address] [place] [address] Dr. Michelle Newell HDL NORMAL > or = 60 mg/dl - LO W CARDIOVASCULAR RISK <40 mg/dl - HIGH CARDIOVASCULAR RISK Normal [facility] Comment on above: Performed By: #### L IPID, TSH, CMP #### Laboratory [address] [place] [address] Dr. Michelle Newell LDL CALC NORMAL SEE BELOW Normal [facility] Comment on above: Result Comment: <100 mg/dl OPTIMAL 100 - 129 mg/dl NEAR OR ABOVE OPTIMAL 130 - 159 mg/dl BORDERLINE HIGH 160 - 189 mg/dl HIGH >190 mg/dl VERY HIGH Performed By: #### L IPID, TSH, CMP #### Laboratory [address] [place] [address] Dr. Michelle Newell Triglyceride [Mass/Vol] 44 mg/dL Normal <=150 [facility] Comment on above: Performed By: #### L IPID, TSH, CMP #### Laboratory [address] [address] [address] Michelle Newell VLDL CALC 8.8 mg/dL Normal [facility] Comment on above: Performed By: #### L IPID, TSH, CMP #### Laboratory [address] [address] [address] Michelle Newell MICROALB CREAT RATIO RANDOMo n 03-12-2022 mALB <1.3 Normal <=30.0 [facility] Comment on above: Performed By: #### M CRR #### Laboratory [address] [place] [address] Dr. Michelle Newell MALB CR RATIO 7.6 mg/g Normal 0.0-29.9 [facility] Comment on above: Performed By: #### M CRR #### Laboratory [address] [address] [address] Michelle Newell MALB CR RATIO RANGE SEE BELOW Normal [facility] Comment on above: Result Comment: NO M ICROALBUMINURIA 0-29 MG/G CLINICAL MICROALBUMINURIA 30-300 MG/G MACROALBUMINURIA >300 MG/G Performed By: #### M CRR #### Laboratory [address] [place] [address] Dr. Michelle Newell URINE CREAT 170.74 mg/dL Normal 20.00-300.00 [facility] Comment on above: Performed By: #### M CRR #### Laboratory [address] [address] [address] Michelle Newell PROF 14(COMP METB)on 022 Albumin [Mass/Vol] 4.2 g/dL Normal 3.4-5.0 [facility] Comment on above: Performed By: #### L IPID, TSH, CMP #### Laboratory [address] [address] [address] Michelle Newell Albumin/Globulin [Mass ratio] 1.2 {ratio} Normal [facility] Comment on above: Performed By: #### L IPID, TSH, CMP #### Laboratory [address] [address] [address] Michelle Newell ALP [Catalytic activity/Vol] 130 U/L Critically high 46-116 [facility] Comment on above: Performed By: #### L IPID, TSH, CMP #### Laboratory [address] [address] [address] Michelle Newell ALT [Catalytic activity/Vol] 30 U/L Normal 16-63 [facility] Comment on above: Performed By: #### L IPID, TSH, CMP #### Laboratory [address] [address] [address] Michelle Newell Anion gap [Moles/Vol] 7.3 mmol/L Normal [facility] Comment on above: Performed By: #### L IPID, TSH, CMP #### Laboratory [address] [place] [address] Dr. Michelle Newell AST [Catalytic activity/Vol] 19 U/L Normal 15-37 [facility] Comment on above: Performed By: #### L IPID, TSH, CMP #### Laboratory [address] [address] [address] Michelle Newell Bilirubin [Mass/Vol] 0.5 mg/dL Normal 0.2-1.0 [facility] Comment on above: Performed By: #### L IPID, TSH, CMP #### Laboratory [address] [address] [address] Michelle Newell Calcium [Mass/Vol] 8.9 mg/dL Normal 8.5-10.1 [facility] Comment on above: Performed By: #### L IPID, TSH, CMP #### Laboratory [address] [place] [address] Dr. Michelle Newell Chloride [Moles/Vol] 101 mmol/L Normal 98-107 [facility] Comment on above: Performed By: #### L IPID, TSH, CMP #### Laboratory [address] [address] [address] Michelle Newell CO2 [Moles/Vol] 34.6 mmol/L Critically high 21.0-32.0 [facility] Comment on above: Performed By: #### L IPID, TSH, CMP #### Laboratory [address] [address] [address] Michelle Newell Creatinine [Mass/Vol] 0.75 mg/dL Normal 0.70-1.30 [facility] Comment on above: Performed By: #### L IPID, TSH, CMP #### Laboratory [address] [address] [address] Michelle Newell EGFR-AF BELIZEAN >60 Normal >=60 [facility] Comment on above: Performed By: #### L IPID, TSH, CMP #### Laboratory [address] [address] [address] Michelle Newell EGFR-NON AF BELIZEAN >60 Normal >=60 [facility] Comment on above: Performed By: #### L IPID, TSH, CMP #### Laboratory [address] [address] [address] Michelle Newell Globulin (S) [Mass/Vol] 3.4 g/dL Normal [facility] Comment on above: Performed By: #### L IPID, TSH, CMP #### Laboratory [address] [address] [address] Michelle Newell Glucose [Mass/Vol] 131 mg/dL Critically high 74-106 [facility] Comment on above: Performed By: #### L IPID, TSH, CMP #### Laboratory [address] [address] [address] Michelle Newell Potassium [Moles/Vol] 3.9 mmol/L Normal 3.5-5.1 [facility] Comment on above: Performed By: #### L IPID, TSH, CMP #### Laboratory [address] [address] [address] Michelle Newell Protein [Mass/Vol] 7.6 g/dL Normal 6.4-8.2 [facility] Comment on above: Performed By: #### L IPID, TSH, CMP #### Laboratory [address] [address] [address] Michelle Newell Sodium [Moles/Vol] 139 mmol/L Normal 136-145 [facility] Comment on above: Performed By: #### L IPID, TSH, CMP #### Laboratory [address] [address] [address] Michelle Newell Urea nitrogen [Mass/Vol] 11.0 mg/dL Normal 7.0-18.0 [facility] Comment on above: Performed By: #### L IPID, TSH, CMP #### Laboratory [address] [address] [address] Michelle Newell Urea nitrogen/Creatinine [Mass ratio] 14.7 mg/mg Normal [facility] Comment on above: Performed By: #### L IPID, TSH, CMP #### Laboratory [address] [address] [address] Michelle Newell TSHon 03-12-2022 TSH 4.267 uIU/mL Critically high 0.358-3.740 [facility] Comment on above: Performed By: #### L IPID, TSH, CMP #### Laboratory [address] [address] [address] Michelle Newell Pathology Noteon 07-30-2021 Pathology Note [id number] .00CD:127 Normal [facility] Outside Colonoscopyon 2021 Outside Colonoscopy [id number]. 00CD:127 Normal [facility] Reminderson 07-29-2021 Reminders - From: Etelvina Saxena LPN To: N - Clinical; Sent: 07/29/2021 09:57:59 EDT Show up: 06/28/2031 07:00:00 EST Subject: colonoscopy recall Due Date/Time: 07/29/2031 07:00:00 EDT Reminder/Recall Patient is due for screening colonoscopy 07/29/2031. Normal [facility] Lab Reportson 07-26-2021 Lab Reports [id number] .[id number]:127 Normal [facility]30 SARS-CoV-2 (COVID-19) RNA FRANCE+probe Ql (Unsp spec) Not detected Normal NOT DETECTED The Comment on above: Result Comment: When diagnostic testing is negative, the possibility of a false negative should be considered in the context of a patient's recent exposures and the presence of clinical signs and symptoms consistent with SARS-CoV-2. This test is not yet approved or cleared by the [place] Food and Drug Administration (FDA). This test was developed by [employer], [place], [place]. The performance characteristics of this test were validated by The Laboratory. The results are not intended to be used as the sole means for clinical diagnosis or patient management decisions. The is authorized under Clinical Laboratory Improvement Amendments [...] for this test is supported by the [place] of Health and Human Service's declaration that [...] longer be used). Performed By: #### C VDTB #### Laboratory [address] [place] [address] Dr. Michelle Newell Consent for Procedure/Surger yon 07-15-2021 Consent for Procedure/Surgery [id number] .00CD:127 Normal [facility] Physician Referralon 022 Physician Referral [id number] .[id number]:127 Normal [facility] Vital Signs Date Time Vital Sign Value Performing Clinician Facility 10-06-2023 10:24-0400 Body height 172.72 cm [facility] 10-06-2023 10:24-0400 Body mass index (BMI) [Ratio] 29 kg/m2 [facility] 10-06-2023 10:24-0400 Body weight 86.8 kg [facility] 10-06-2023 10:24-0400 Diastolic blood pressure 80 mm[Hg] [facility] 10-06-2023 10:24-0400 Heart rate 75 /min [facility] 10-06-2023 10:24-0400 Respiratory rate 12 /min [facility] 10-06-2023 10:24-0400 Systolic blood pressure 130 mm[Hg] [facility] 09-30-2022 10:00-0400 Body height 172.72 cm Stalin Ball Other [facility] [employer] Other 09-30-2022 10:00-0400 Body mass index (BMI) [Ratio] 28.67 kg/m2 Stalin Ball Other [facility] [employer] Other 09-30-2022 10:00-0400 Body weight 85.55 kg Stalin Ball Other [facility] Other 09-30-2022 10:00-0400 Diastolic blood pressure 80 mm[Hg] Stalin Ball Other [facility] [employer] Other 09-30-2022 10:00-0400 Respiratory rate 12 /min Stalin Ball Other [facility] [employer] Other 09-30-2022 10:00-0400 Systolic blood pressure 135 mm[Hg] Stalin Ball Other [facility] [employer] Other Encounters Encounter Date Encounter Type Care Provider Facility Start: 10-11-2023 End: 10-11-2023 ambulatory AP DEBORAH Not Available Start: 10-06-2023 End: 10-06-[address] [facility] Work Phone: Start: 10-06-2023 End: 10-06-2023 Encounter for general adult medical examination without abnormal findings [facility] Start: 10-06-2023 End: 10-06-2023 Patient encounter procedure [facility] Work Phone: Start: 09-29-2023 Non-patient / Non-visit [facility] [employer] Work Phone: Start: 09-01-2023 End: 09-01-2023 ambulatory YOHANA JOHNSON Not Available Start: 04-14-2023 End: 04-14-2023 ambulatory YOHANA JOHNSON Not Available Start: 01-18-2023 End: 01-18-2023 ambulatory Stalin Borjas Other [employer] Other Start: 01-18-2023 Telephone encounter Stalin Borjas [facility] Start: 10-24-2022 End: 10-24-2022 ambulatory Stalin Borjas Other [facility] Other Start: 10-24-2022 Telephone encounter Stalin Borjas [facility] Start: 10-18-2022 End: 10-18-2022 ambulatory Stalin Borjas Other [facility] Other Start: 10-18-2022 Telephone encounter Stalin Ball [facility] Start: 09-30-2022 End: 09-30-2022 ambulatory Stalin Borjas Other [facility] Other Start: 09-30-2022 Encounter for genera l adult medical examination without abnormal findings Stalin Borjas [facility] Start: 09-30-2022 Periodic preventive med est patient 40-64yrs Stalin Borjas [facility] Start: 03-15-2022 Encounter for genera l adult medical examination without abnormal findings DR YOHANA JOHNSON The Start: 03-12-2022 End: 03-13-[address] YOHANA JOHNSON Facility:[facility] Start: 03-12-2022 End: 03-13-2022 Encounter for general adult medical examination without abnormal findings DR YOHANA JOHNSON Facility:[facility] Start: 09-21-2021 End: 09-21-2021 ambulatory Ubaldo Burgos Other [facility] Other Start: 09-21-2021 Office outpatient vi sit 15 minutes Ubaldo Olexa [facility] Start: 08-10-2021 End: 09-24-2021 ambulatory UBALDO OLEDELIO Facility:[facility] Start: 07-28-2021 Encounter for preprocedural laboratory examination DR ELIZ CHICAS [facility] Start: 07-28-2021 End: 07-28-[address] ELIZ CHICAS Facility:[facility] Start: 07-27-2021 End: 07-28-2021 ambulatory UBALDO BURGOS [facility] [employer] Other Start: 07-27-2021 Office outpatient ne w 30 minutes Ubaldo Olexa [facility] Start: 07-24-2021 End: 07-25-[address] ELIZ CHICAS Facility:[facility] Start: 07-24-2021 End: 07-25-2021 Encounter for preprocedural laboratory examination DR ELIZ CHICAS Facility:[facility] Start: 07-03-[address] STALIN BORJAS Facili ty:[facility] Start: 06-29-2021 Encounter for genera l adult medical examination without abnormal findings Stalin Borjas Other [facility] Other Procedures Date Procedure Procedure Detail Performing Clinician Depression screening Dank Borjas Other Plan of Treatment Date Care Activity Detail Author [facility] Immunizations Immunization Date Immunization Notes Care Provider Jonathan morataya 04-13-2021 influenza, injectabl e, quadrivalent, contains preservative Stalin Borjas Other [facility] Other 04-13-2021 influenza, injectabl e, quadrivalent, preservative free [facility] 10-27-2021 COVID-19 Vaccine Moderna - Documentation Purposes Only Stalin Borjas Other [facility] 08-09-2020 COVID-19 Vaccine Moderna - Documentation Purposes Only Stalin Borjas Other [facility] 07-13-2020 COVID-19 Vaccine Moderna - Documentation Purposes Only Stalin Borjas Other [facility] Payers Date Payer Category Payer [facility] [id number] 2019 Unknown [id number] 1973 Unknown [id number] 2.16.84 [id number] 1973 Unknown [id number] 2.16.84 [id number] 1973 Unknown [id number] 2.16.84 [id number] 1973 Unknown [id number] 2.16.84 [id number] 1973 Unknown [id number] 2.16.84 [id number] 1973 Unknown [id number] 2.16.84 [id number] 1973 Unknown [id number] 2.16.84 [id number] 1973 Unknown [id number] 2.16.84 [id number] 1973 Unknown [id number] 2.16.840 .[id number] 1959 Private Health Insurance [id number] 1961 Self-pay Social History Date Type Detail Facility Sex Assigned At [facility] Other Start: 09-21-2021 Tobacco smoking stat us NHIS Ex-smoker (finding) [facility] Start: 1975 Sex Assigned At Male [facility] Clinical Notes 07-14-2021 to 01-18-2023 Note Date & Type Note Facility 01-18-2023 Evaluation note Encounter Date Diagnosis Assessment Notes Dec, 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 (ICD-10 - E10.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) [facility] Other 06-26-2023 Evaluation note* Encounter Date Diagnosis Assessment Notes Treatment Notes Treatment Clinical Notes Sep, AKIN (obstructive sleep apnea) (ICD-10 - G47.33) AHI 18 Psat 79% [facility] Other 06-20-2023 Evaluation note* Encounter Date Diagnosis Assessment Notes Treatment Notes Treatment Clinical Notes Sep, Allergic contact dermatitis due to plants, except food (ICD-10 - L23.7) [facility] Other 06-02-2023 Evaluation note* Encounter Date Diagnosis [...] will send referral for home sleep study [facility] Other 05-24-2022 Evaluation note* Encounter Date Diagnosis [...] capsulitis of left shoulder (ICD-10 - M75.02) [facility] Other 03-30-2022 NoteOPERATIVE NOTE PREOPERATIVE DIAGNOSIS: Colorectal [...] in 10 years. CC: Stalin Borjas D.O. [facility] Signed and Approved by: DR ELIZ CHICAS . 07/30/2021 05:17:00[facility]03-30-2022 NoteOPERATIVE NOTE PREOPERATIVE DIAGNOSIS: Colorectal screening. [...] 10 years. CC: Stalin Borjas D.O. : [facility] Signed and Approved by: DR ELIZ CHICAS . 07/30/2021 05:17:00[facility]03-29-2022 NotePROCEDURE: XR SHOULDER MACRINA 2V or [...] Electronically authenticated by: SAY VILLASENOR Date: 2021-07-27 17:23[facility]03-29-2022 Evaluation note* Encounter Date Diagnosis Assessment [...] motion exercise. Formal order of physical therapy. [facility] Other 03-16-2022 NoteChief Complaint consultation for colonoscopy [facility] Staff 45 year old male presents on [...] Date Status influenza virus vaccine, inactivated [facility] on above:Result Comment: Electronically Signed By: ZULEMA PICHARDO, Eliz Richards\Date and Time Signed: 07/14/21 17:02 EDTEvaluation note* Diagnosis Onset Date Resolution Status Benign prostatic hyperplasia with lower urinary tract symptoms acute AKIN (obstructive sleep apnea) acute Overweight acute Type 1 diabetes mellitus with hyperglycemia acute Screening PSA (prostate specific antigen) noneactive Wellness examination noneact [facility] Work Phone: [facility] Narrative - Reported* Type Description Date Medical History diabetes mallitus Surgical History carpal tunnel release [facility] Other [facility] Narrative - Reported* Type Description Date Medical History diabetes mallitus Medical History Pure hypercholesterolemia Medical History Adhesive capsulitis of right marsha ulder Medical History HAILEY (generalized anxiety disorde r) Surgical History carpal tunnel release- BILATERA L 2014 Surgical History COLONOSCOPY 2021 Hospitalization History SEE SURGICAL [facility] Other [facility] Narrative - Reported* Type Description Date Medical History diabetes mallitus Medical History Pure hypercholesterolemia Medical History Adhesive capsulitis of right marsha ulder Medical History HAILEY (generalized anxiety disorde r) Medical History AKIN Surgical History carpal tunnel release- BILATERA L 2014 Surgical History COLONOSCOPY 2021 Hospitalization History SEE SURGICAL [facility] Other [facility] Narrative - Reported* Type Description Date Medical History diabetes mallitus Medical History Pure hypercholesterolemia Medical History Adhesive capsulitis of right marsha ulder Medical History HAILEY (generalized anxiety disorde r) Medical History AKIN Medical History Proliferative diabetic retinopat hy Surgical History carpal tunnel release- BILATERA L 2014 Surgical History COLONOSCOPY 2021 Hospitalization History SEE SURGICAL HX [facility] Other Summary Purpose Family History No Family [...] content) DATE CREATED AUTHOR 08/22/2021 [facility] DATE CREATED AUTHOR AUTHOR'S ORGANIZ ATION 03/23/2022 [facility] DATE CREATED AUTHOR AUTHOR'S ORGANIZ ATION 10/12/2023 [facility] EPIC REASON FOR VISIT (unrecogniz ed section and content) CONSULT DR ERIKA NICOLE SHOULD ER PAIN NXRecheck Bilateral ShouldersWellnessMedicationNo InformationNo Information Care Teams (unrecognized sec tion and content) Team Status: Active Member Role Status Dates Stalin Borjas , DO Primary Care Provider Active Team Status: Active Member Role Status Dates Stalin Borjas DO Primary Care Provide r, Attending Provider Active Start: September 29, 2023 Team Status: Inactive Member Role Status Dates Stalin Borjas , Primary Care Provide r, Attending Provider Active [...] BE BASED ON THE PRIMARY CLINICAL RECORDS. [facility]. provides no warranty or guarantee of the accuracy or completeness of information in this document.
[2023-12-15 09:51] LABS: Free T4 0.58 ng/dL (0.76-1.46)
[2023-12-15 11:17] LABS: Thyroid Stimulating Hormone 4.748 uIU/mL (0.358-3.740)
[2023-12-16 04:10] LABS: Testosterone 418 ng/dL (264-916); Triiodothyronine (T3) 97 ng/dL (71-180)
== END 2023-12-15 08:25 | disposition home or self-care (01) ==
LOC: LAB 08:25
PROVIDERS: PCP Internal Medicine; Visit Provider Internal Medicine
DX: R79.89 Other specified abnormal findings of blood chemistry (principal); R53.83 Other fatigue
CPT/HCPCS: 36415; 84403; 84439; 84443; 84480

== ENCOUNTER 2024-04-19 12:49 | Outpatient (OUT) | payer BC, SELFPAY ==
--- OUTSIDE RECORDS SUMMARY | 2024-04-19 13:06 | XMS_ITS | CCD ---
Author Organization [facility] Care Team Providers Care Sales And Distribution Clerk Name Role Phone Aubrey Ubaldo Unavailable ERIKA, [...] Admitting Unavailable NILL, DR WELLINGTON Attending Unavailable UBCKNER, DR RYAN Bacon Primary Care Unavailable NILL, DR WELLINGTON Consulting Unavailable NILL, DR WELLINGTON Admitting Unavailable NILL, DR WELLINGTON Attending Unavailable BALL, DR DUNN Primary Care Unavailable NILL, DR WELLINGTON Consulting Unavailable AGUBOSIM, KALI Consulting Unavailable DORKOSKIE, JUSTYN Consulting Unavailable Stalin Borjas Unavailable CORDELIA JOHNSON Attending Unavailable STALIN BORJAS Referring Unavailable AP CABRERA Attending Unavailable CORDELIA JOHNSON Attending Unavailable CORDELIA JOHNSON Attending Unavailable STALIN BORJAS Referring Unavailable PetznCordelia peralta DO Unavailable Stalin Borjas MD Primary Care Provider Medications Current Medications Medication Drug Class(es) Dates Sig (Normalized) Sig (Original) atorvastatin 20 mg oral tablet (6 sources) HMG-CoA Reductase Inhibitor Start: 10-06-2023 End: 10-06-2023 take 20 mg by mouth once daily Atorvastatin Active 20 MG PO Daily 90 90 October 06, 2023 10:43am Continuous Glucose Sensor (Dexcom G6 Sensor) [facility] [place] (2 sources) Start: 09-01-2023 End: 08-31-2024 Continuous Glucose Sensor (Dexcom G6 Sensor) misc Indications: 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 (CMS/HCC) 1 each Every 10 (ten) days 9 each 3 09/01/2023 08/31/2024 Active Continuous Glucose Transmitter (Dexcom G6 transmitter) misc (2 sources) Start: 09-01-2023 Continuous Glucose Transmitter (Dexcom G6 transmitter) misc Indications: 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 (CMS/HCC) Use as instructed every 90 days 1 each 3 09/01/2023 Active Hydrocortisone / Neomycin / Polymyxin B (6 sources) Aminoglycoside Antibacterial, Polymyxin-class Antibacterial, Corticosteroid Start: 06-18-2013 Cortisporin 3.5-70100-6 4 drops into affected ear Otic Three times a day for 7 days Jun, Active Insulin Aspart (B3) Pump Cart (2 sources) Start: 10-06-2023 Insulin Aspart (B3) Pump Cart (Fiasp Pumpcart) 100 unit/mL (1.6 mL) cartridge Active 1 sliding scale dose SUBCUT Use as Directed October 06, 2023 12:00am insulin aspart, human 100 unt/ml injectable solution (8 sources) Insulin Analog Start: 02-06-2023 inject 70 [IU] by subcutaneous injection once daily Fiasp 100 UNIT/ML solution Indications: Type 1 diabetes mellitus without complications (CMS/HCC) INJECT A MAXIMUM OF 70 UNITS SUBCUTANEOUSLY EVERY DAY 70 mL 3 02/06/2023 Active NovoLOG 100 UNIT /ML as directed Subcutaneous Active Insulin Disposable Pump (Omn ipod 5 G6 Pods, Gen 5,) misc (4 sources) Start: 01-05-2024 Insulin Dispos able Pump (Omnipod 5 G6 Pods, Gen 5,) misc Inject 1 each under the skin every 3 (three) days Basal 12A 1.3, 6P 2.0 ICR: 12A 10, 10A 12, 3P 9, ISF: 65, target: 12 30 each 3 01/05/2024 Active Start: 06-21-2023 End: 01-05-2024 Insulin Disposable Pump (Omn ipod 5 G6 Pods, Gen 5,) misc Inject 1 each under the skin every 3 (three) days Basal 12A 1.3, 6P 1.8 ICR: 12A 10, 10A 12, 3P 10, ISF: 65, target: 12 06/21/2023 01/05/2024 Discontinued (Dose adjustment) predniSONE 20 mg oral tablet (3 sources) Start: 10-18-2022 predniSONE 20 MG 1 tablet Orally tid w/ food x 3 days, then bid w/ food x 3 days, then qd w/ food x 3 days for 9 days Sep, Active 24 hr venlafaxine 75 mg extended release oral capsule (5 sources) Serotonin and Norepinephrine Reuptake Inhibitor Start: 12-25-2023 End: 12-25-2023 take 1 dose by mouth once daily in the morning Venlafaxine Active 150 MG PO Every morning 90 90 December 25, 2023 8:44pm Start after completing 7 days at dose of 75mg q am (omit instructions after initial prescription) Start: 12-25-2023 take 1 capsule by mo [facility] once daily venlafaxine XR (Effexor XR) 75 MG 24 hr capsule Take 75 mg by mouth Daily 01/03/2024 Active Completed/Discontinued Medications Medication Drug Class(es) Dates Sig (Normalized) Sig (Original) escitalopram 20 mg oral tablet (6 sources) Serotonin Reuptake Inhibitor Start: 10-06-2023 End: 12-25-2023 take 1 tablet by mouth once daily Escitalopram Oxalate (Lexapro) 20 mg tablet Discontinued 20 MG PO Daily 90 90 October 06, 2023 10:43am December 25, 2023 8:41pm End: 01-05-2024 escitalopram (Lexapro) 10 MG tablet 1 (one) time each day at the same time. 01/05/2024 Discontinued (Therapy completed) Insulin Aspart U-100 (Novolo g U-100 Insulin Aspart) 100 unit/mL solution (2 sources) Start: 10-06-2023 End: 10-06-2023 Insulin Aspart U-100 (Novolo g U-100 Insulin Aspart) 100 unit/mL solution Discontinued SUBCUT As Directed October 06, 2023 12:00am October 06, 2023 10:24am Problems Active Problems Problem Classification Problem Date Documented Date Episodic/Chronic Allergic reactions (1 source) Allergic contact dermatitis due to plants, except food Episodic Anxiety disorders (8 sources) Generalized anxiety disorder; Translations: [Generalized anxiety disorder] Onset: 05-24-2019 12-23-2022 Chronic Diabetes mellitus with complications (17 sources) Hyperglycemia due to type 1 diabetes mellitus; Translations: [Type 1 diabetes mellitus with hyperglycemia] Onset: 10-06-2015 Chronic Diabetes mellitus without complication (1 source) Type 1 diabetes mellitus without complications; Translations: [TYPE 1 DM WITHOUT COMPLICATIONS] Onset: 08-05-2021 Chronic Disorders of lipid metabolism (8 sources) Pure hypercholesterolemia , unspecified; Translations: [Pure hypercholesterolemia ] Onset: 10-06-2015 12-23-2022 Chronic Hyperplasia of prostate (5 sources) Benign prostatic hyperplasia; Translations: [Benign prostatic hyperplasia with lower urinary tract symptoms] Onset: 01-05-2024 10-04-2023 Chronic Malaise and fatigue (2 sources) Fatigue; Translations: [Other fatigue] 02-21-2024 Episodic Other connective tissue disease (4 sources) Adhesive [...] Chronic Other nutritional; endocrine; and metabolic disorders (4 sources) Overweight; Translations: [Overweight] Episodic Other nutritional; endocrine; and metabolic disorders (2 sources) Overweight; Translations: [Overweight] 10-06-2023 Episodic Other screening for suspected conditions (not mental disorders or infectious disease) (6 sources) Encounter for screening for malignant neoplasm of colon; Translations: [Encounter for screening for malignant neoplasm of prostate] Onset: 07-28-2021 Episodic Residual codes; unclassified (6 sources) Obstructive sleep apnea syndrome; Translations: [Obstructive sleep apnea (adult) (pediatric)] Onset: 01-05-2024 10-04-2023 Chronic Residual codes; unclassified (3 sources) Obstructive sleep apnea (adult) (pediatric); Translations: [Obstructive sleep apnea (adult)(pediatric)] Chronic Thyroid disorders (2 sources) Hypothyroidism; Translations: [Hypothyroidism, unspecified] 02-19-2024 Chronic Unclassified (1 source) CONTACT W/AND (SUSP) EXPOS COVID-19; Translations: [CONTACT W/AND (SUSP) EXPOS COVID-19] Onset: 07-28-2021 Past or Other Problems Problem Classification Problem Date Documented Date Episodic/Chronic Noninfectious gastroenteritis (1 source) Noninfective gastroenteritis and colitis, unspecified; Translations: [NONINFECTIVE GE AND COLITIS UNS] Onset: 08-05-2021 Episodic Other aftercare (1 source) Other long-term (current) drug therapy; 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] Onset: 08-05-2021 Episodic Other [...] Test Name Value Interpretation Reference Range Facility HbA1c (Bld) [Mass fraction]o n 01-05-2024 Interpretation and review of laboratory results Normal [facility] - Hematology and Cell countson 01-05-2024 HbA1c (Bld) [Mass fraction] 7.2 % [facility] - Chemistry and C hemistry - challengeon 12-15-2023 Free T4 [Mass/Vol] 0.58 ng/dL Low 0.76-1.46 [facility] TSH Qn 4.748 m[IU]/L High 0.358-3.740 [facility] No Panel Informationon 12-14 Testosterone Level 418 ng/dL [id number] [facility] Comment on above: Adult male reference interval is based on a population ofhealthy nonobese males (BMI <30) between 19 and 39 yearsold. bridget [email or web address]. JCEM 2017,102;[id number]. PMID:[id number]. Total Triiodothyronine 97 ng/dL 71-180 [facility] Comment on above: Performed at: [address] [id number] Director: Brenton Hewitt PhD, Phone: [phone] Basophils Auto (Bld) [#/Vol] on 09-29-2023 Basophils (Bld) [#/Vol] 0.1 10 3/uL 0.0-0.1 [facility] Basophils/100 WBC Auto (Bld) on 09-29-2023 Basophils/100 WBC (Bld) 0.8 % 0.2-2.0 [facility] Cholesterol in LDL Calc [Mas s/Vol]on 09-29-2023 Cholesterol in LDL [Mass/Vol] 92.0 mg/dL [facility] Comment on above: <100 mg/dl [id number] 0-129 mg/dl NEAR OR ABOVE [id number] mg/dl BORDERLINE [id number] mg/dl HIGH>190 mg/dl VERY HIGH Cholesterol in VLDL Calc [Ma ss/Vol]on 09-29-2023 Cholesterol in VLDL [Mass/Vol] 10.2 mg/dL [facility] Eosinophils/100 WBC Auto (Bl d)on 09-29-2023 Eosinophils/100 WBC (Bld) 3.9 % 0.9-7.0 [facility] Erythrocyte distribution wid th Auto (RBC) [Ratio]on 09-29-2023 Erythrocyte distribution width (RBC) [Ratio] 12.2 % 11.0-15.0 [facility] Estimated glomerular filtrat ion rate (GFR) non- Americanon 09-29-2023 GFR/1.73 sq M.predicted among non-blacks MDRD (S/P/Bld) [Vol rate/Area] mL/min/{1.73_m2} >=60 [facility] Globulin Calc (S) [Mass/Vol] on 09-29-2023 Globulin (S) [Mass/Vol] 3.4 g/dL [facility] Glucose mean value [Mass/vol ume] in Blood Estimated from glycated hemoglobinon 09-29-2023 Average glucose Estimated from glycated hemoglobin (Bld) [Mass/Vol] 157 mg/dL [facility] Hematocrit Auto (Bld) [Volum e fraction]on 09-29-2023 Hematocrit (Bld) [Volume fraction] 43.1 % 42.0-54.0 [facility] Hemoglobin [Mass/volume] in Bloodon 09-29-2023 Hemoglobin (Bld) [Mass/Vol] 14.2 g/dL 14.0-18.0 [facility] Laboratory - Chemistry and C hemistry - challengeon 09-29-2023 Albumin [Mass/Vol] 3.7 g/dL 3.4-5.0 [facility] ALP [Catalytic activity/Vol] 141 U/L 46-116 [facility] ALT [Catalytic activity/Vol] 58 U/L 16-63 [facility] AST [Catalytic activity/Vol] 28 U/L 15-37 [facility] Bilirubin [Mass/Vol] 0.7 mg/dL 0.2-1.0 [facility] Calcium [Mass/Vol] 8.6 mg/dL 8.5-10.1 [facility] Chloride [Moles/Vol] 103 mmol/L 98-107 [facility] Cholesterol [Mass/Vol] 174 mg/dL <=200 [facility] Cholesterol in HDL [Mass/Vol] 72 mg/dL 40-60 [facility] Comment on above: > or =60 mg/dl - LOW CARDIOVASCULAR RISK<40 mg/dl - HIGH CARDIOVASCULAR RISK CO2 [Moles/Vol] 31.6 mmol/L 21.0-32.0 [facility] Creatinine [Mass/Vol] 0.80 mg/dL 0.70-1.30 [facility] GFR/1.73 sq M.predicted MDRD (S/P/Bld) [Vol rate/Area] mL/min/{1.73_m2} >=60 [facility] Glucose [Mass/Vol] 128 mg/dL 74-106 [facility] Potassium [Moles/Vol] 3.7 mmol/L 3.5-5.1 [facility] Protein [Mass/Vol] 7.1 g/dL 6.4-8.2 [facility] Sodium [Moles/Vol] 141 mmol/L 136-145 [facility] Triglyceride [Mass/Vol] 51 mg/dL <=150 [facility] Urea nitrogen [Mass/Vol] 16.0 mg/dL 7.0-18.0 [facility] Urea nitrogen/Creatinine [Mass ratio] 20.0 mg/mg [facility] Laboratory - Hematology and Cell countson 09-29-2023 HbA1c (Bld) [Mass fraction] 7.1 % 4.5-6.2 [facility] Comment on above: ADA RECOMMENDED LIMI T 4.0 - 6.0ADA THERAPEUTIC TARGET < 7.0ACTION SUGGESTED> 7.0 Immature granulocytes/100 WBC (Bld) 0.4 % 0.0-0.5 [facility] Leukocytes [#/volume] correc feng for nucleated erythrocytes in Blood by Automated counon 09-29-2023 WBC corrected for nucl RBC Auto (Bld) [#/Vol] 7.1 10 3/uL 4.0-11.0 [facility] Lymphocytes Auto (Bld) [#/Vo l]on 09-29-2023 Lymphocytes (Bld) [#/Vol] 1.5 10 3/uL 1.2-3.8 [facility] Lymphocytes/100 WBC Auto (Bl d)on 09-29-2023 Lymphocytes/100 WBC (Bld) 21.2 % 20.5-60.0 [facility] MCH Auto (RBC) [Entitic mass ]on 09-29-2023 MCH (RBC) [Entitic mass] 30.5 pg 25.9-34.0 [facility] MCHC Auto (RBC) [Mass/Vol]on 09-29-2023 MCHC (RBC) [Mass/Vol] 32.9 g/dL 29.9-35.2 [facility] MCV Auto (RBC) [Entitic vol] on 09-29-2023 MCV (RBC) [Entitic vol] 92.5 fL 80.0-94.0 [facility] Microalbumin [Mass/volume] i n Urineon 09-29-2023 Albumin DL <= 20 mg/L (U) [Mass/Vol] mg/dL <=30.0 [facility] Monocytes Auto (Bld) [#/Vol] on 09-29-2023 Monocytes (Bld) [#/Vol] 0.7 10 3/uL 0.3-0.8 [facility] Monocytes/100 WBC Auto (Bld) on 09-29-2023 Monocytes/100 WBC (Bld) 10.3 % 1.7-12.0 [facility] Neutrophils Auto (Bld) [#/Vo l]on 09-29-2023 Neutrophils (Bld) [#/Vol] 4.5 10 3/uL 1.4-6.5 [facility] Neutrophils/100 WBC Auto (Bl d)on 09-29-2023 Neutrophils/100 WBC (Bld) 63.4 % 43.0-75.0 [facility] No Panel Informationon 09-28 Eosinophils # (Auto) 0.3 10 3/uL 0.0-0.7 [facility] Immature Granulocyte # (Auto) 0.03 10 3/uL 0.00-0.03 [facility] Prostate Specific Antigen Screen 0.26 ng/mL <=4.00 [facility] Platelet mean volume Auto (B ld) [Entitic vol]on 09-29-2023 Platelet mean volume (Bld) [Entitic vol] 10.1 fL 9.5-13.5 [facility] Platelets Auto (Bld) [#/Vol] on 09-29-2023 Platelets (Bld) [#/Vol] 331 10 3/uL 150-450 [facility] RBC Auto (Bld) [#/Vol]on RBC (Bld) [#/Vol] 4.66 10 6/uL 4.70-6.10 [facility] Serum or plasma albumin/glob ulin mass ratioon 09-29-2023 Albumin/Globulin [Mass ratio] 1.1 {ratio} [facility] Serum or plasma anion gap de terminationon 09-29-2023 Anion gap [Moles/Vol] 10.1 mmol/L [facility] Serum or plasma total choles terol/high density lipoprotein (HDL) cholesterol mass jing 09-29-2023 Cholesterol.total/Cho lesterol in HDL [Mass ratio] 2.4 {ratio} [facility] Comment on above: 3.3 - 4.4 LOW RISK4. 4 - 7.1 AVERAGE RISK7.1 - 11.0 MODERATE RISK>11.0 HIGH RISK CBC AUTO DIFFon 03-12-2022 BASO # 0.1 103/ul Normal 0.0-0.1 [facility] Comment on above: Performed By: #### C BC #### [facility] [address] [address] [address] Michelle Newell Basophils/100 WBC (Bld) 1.1 % Normal 0.2-2.0 [facility] Comment on above: Performed By: #### C BC #### [facility] [address] [place] [address] Dr. Michelle Newell EO # 0.3 103/ul Normal 0.0-0.7 [facility] Comment on above: Performed By: #### C BC #### [facility] [address] [address] [address] Michelle Newell Eosinophils/100 WBC (Bld) 4.6 % Normal 0.9-7.0 [facility] Comment on above: Performed By: #### C BC #### [facility] [address] [place] [address] Dr. Michelle Newell Erythrocyte distribution width (RBC) [Ratio] 12.2 % Normal 11.0-15.0 [facility] Comment on above: Performed By: #### C BC #### [facility] [address] [place] [address] Dr. Michelle Newell Hematocrit (Bld) [Volume fraction] 45.4 % Normal 42.0-54.0 [facility] Comment on above: Performed By: #### C BC #### [facility] [address] [place] [address] Dr. Michelle Newell Hemoglobin (Bld) [Mass/Vol] 15.4 g/dL Normal 14.0-18.0 [facility] Comment on above: Performed By: #### C BC #### [facility] [address] [place] [address] Dr. Michelle Newell IG # 0.02 10e3/ul Normal 0.00-0.03 [facility] Comment on above: Performed By: #### C BC #### [facility] [address] [place] [address] Dr. Michelle Newell IG % 0.3 % Normal 0.0-0.5 [facility] Comment on above: Performed By: #### C BC #### [facility] [address] [place] [address] Dr. Michelle Newell LYMPH # 1.8 103/ul Normal 1.2-3.8 [facility] Comment on above: Performed By: #### C BC #### [facility] [address] [place] [address] Dr. Michelle Newell Lymphocytes/100 WBC (Bld) 24.5 % Normal 20.5-60.0 [facility] Comment on above: Performed By: #### C BC #### [facility] [address] [place] [address] Dr. Michelle Newell MANUAL DIFF REQ NO Normal [facility] Comment on above: Performed By: #### C BC #### [facility] [address] [place] [address] Dr. Michelle Newell MCH (RBC) [Entitic mass] 30.9 pg Normal 25.9-34.0 [facility] Comment on above: Performed By: #### C BC #### [facility] [address] [place] [address] Dr. Michelle Newell MCHC (RBC) [Mass/Vol] 33.9 g/dL Normal 29.9-35.2 [facility] Comment on above: Performed By: #### C BC #### [facility] [address] [place] [address] Dr. Michelle Newell MCV (RBC) [Entitic vol] 91.2 fL Normal 80.0-94.0 [facility] Comment on above: Performed By: #### C BC #### [facility] [address] [place] [address] Dr. Michelle Newell MONO # 0.8 103/ul Normal 0.3-0.8 [facility] Comment on above: Performed By: #### C BC #### [facility] [address] [place] [address] Dr. Michelle Newell Monocytes/100 WBC (Bld) 10.8 % Normal 1.7-12.0 [facility] Comment on above: Performed By: #### C BC #### [facility] [address] [place] [address] Dr. Michelle Newell NEUT # 4.3 103/ul Normal 1.4-6.5 [facility] Comment on above: Performed By: #### C BC #### [facility] [address] [place] [address] Dr. Michelle Newell Neutrophils/100 WBC (Bld) 58.7 % Normal 43.0-75.0 [facility] Comment on above: Performed By: #### C BC #### [facility] [address] [place] [address] Dr. Michelle Newell Platelet mean volume (Bld) [Entitic vol] 10.2 fL Normal 9.5-13.5 [facility] Comment on above: Performed By: #### C BC #### [facility] [address] [place] [address] Dr. Michelle Newell PLT 326 103/ul Normal 150-450 [facility] Comment on above: Performed By: #### C BC #### [facility] [address] [place] [address] Dr. Michelle Newell RBC 4.98 106/ul Normal 4.70-6.10 [facility] Comment on above: Performed By: #### C BC #### [facility] [address] [place] [address] Dr. Michelle Newell WBC 7.3 103/ul Normal 4.0-11.0 [facility] Comment on above: Performed By: #### C BC #### [facility] [address] [place] [address] Dr. Michelle Newell LIPID PROFILEon 03-12-2022 CHOL-HDL RATIO NORM SEE BELOW Normal [facility] Comment on above: Result Comment: 3.3 - 4.4 LOW RISK 4.4 - 7.1 AVERAGE RISK 7.1 - 11.0 MODERATE RISK >11.0 HIGH RISK Performed By: #### L IPID, TSH, CMP #### [facility] [address] [address] [address] Michelle Newell Cholesterol [Mass/Vol] 155 mg/dL Normal <=200 [facility] Comment on above: Performed By: #### L IPID, TSH, CMP #### [facility] [address] [address] [address] Michelle Newell Cholesterol in HDL [Mass/Vol] 70 mg/dL Critically high 40-60 [facility] Comment on above: Performed By: #### L IPID, TSH, CMP #### [facility] [address] [place] [address] Dr. Michelle Newell Cholesterol in LDL [Mass/Vol] 76.2 mg/dL Normal [facility] Comment on above: Performed By: #### L IPID, TSH, CMP #### [facility] [address] [place] [address] Dr. Michelle Newell Cholesterol.total/Cho lesterol in HDL [Mass ratio] 2.2 {ratio} Normal [facility] Comment on above: Performed By: #### L IPID, TSH, CMP #### [facility] [address] [place] [address] Dr. Michelle Newell HDL NORMAL > or = 60 mg/dl - LO W CARDIOVASCULAR RISK <40 mg/dl - HIGH CARDIOVASCULAR RISK Normal [facility] Comment on above: Performed By: #### L IPID, TSH, CMP #### [facility] [address] [place] [address] Dr. Michelle Newell LDL CALC NORMAL SEE BELOW Normal [facility] Comment on above: Result Comment: <100 mg/dl OPTIMAL 100 - 129 mg/dl NEAR OR ABOVE OPTIMAL 130 - 159 mg/dl BORDERLINE HIGH 160 - 189 mg/dl HIGH >190 mg/dl VERY HIGH Performed By: #### L IPID, TSH, CMP #### [facility] [address] [address] [address] Michelle Newell Triglyceride [Mass/Vol] 44 mg/dL Normal <=150 [facility] Comment on above: Performed By: #### L IPID, TSH, CMP #### [facility] [address] [address] [address] Michelle Newell VLDL CALC 8.8 mg/dL Normal [facility] Comment on above: Performed By: #### L IPID, TSH, CMP #### [facility] [address] [address] [address] Michelle Newell MICROALB CREAT RATIO RANDOMo n 03-12-2022 mALB <1.3 Normal <=30.0 [facility] Comment on above: Performed By: #### M CRR #### [facility] [address] [address] [address] Michelle WELCH CR RATIO 7.6 mg/g Normal 0.0-29.9 [facility] Comment on above: Performed By: #### M CRR #### [facility] [address] [address] [address] Michelle Newell MALB CR RATIO RANGE SEE BELOW Normal [facility] Comment on above: Result Comment: NO M ICROALBUMINURIA 0-29 MG/G CLINICAL MICROALBUMINURIA 30-300 MG/G MACROALBUMINURIA >300 MG/G Performed By: #### M CRR #### [facility] [address] [place] [address] Dr. Michelle Newell URINE CREAT 170.74 mg/dL Normal 20.00-300.00 [facility] Comment on above: Performed By: #### M CRR #### [facility] [address] [address] [address] Michelle Newell PROF 14(COMP METB)on 022 Albumin [Mass/Vol] 4.2 g/dL Normal 3.4-5.0 [facility] Comment on above: Performed By: #### L IPID, TSH, CMP #### [facility] [address] [address] [address] Michelle Newell Albumin/Globulin [Mass ratio] 1.2 {ratio} Normal [facility] Comment on above: Performed By: #### L IPID, TSH, CMP #### [facility] [address] [address] [address] Michelle Newell ALP [Catalytic activity/Vol] 130 U/L Critically high 46-116 [facility] Comment on above: Performed By: #### L IPID, TSH, CMP #### [facility] [address] [address] [address] Michelle Newell ALT [Catalytic activity/Vol] 30 U/L Normal 16-63 [facility] Comment on above: Performed By: #### L IPID, TSH, CMP #### [facility] [address] [place] [address] Dr. Michelle Newell Anion gap [Moles/Vol] 7.3 mmol/L Normal [facility] Comment on above: Performed By: #### L IPID, TSH, CMP #### [facility] [address] [place] [address] Dr. Michelle Newell AST [Catalytic activity/Vol] 19 U/L Normal 15-37 [facility] Comment on above: Performed By: #### L IPID, TSH, CMP #### [facility] [address] [place] [address] Dr. Michelle Newell Bilirubin [Mass/Vol] 0.5 mg/dL Normal 0.2-1.0 [facility] Comment on above: Performed By: #### L IPID, TSH, CMP #### [facility] [address] [place] [address] Dr. Michelle Newell Calcium [Mass/Vol] 8.9 mg/dL Normal 8.5-10.1 [facility] [place] Comment on above: Performed By: #### L IPID, TSH, CMP #### [facility] [address] [place] [address] Dr. Michelle Newell Chloride [Moles/Vol] 101 mmol/L Normal 98-107 [facility] Comment on above: Performed By: #### L IPID, TSH, CMP #### [facility] [address] [place] [address] Dr. Michelle Newell CO2 [Moles/Vol] 34.6 mmol/L Critically high 21.0-32.0 [facility] Comment on above: Performed By: #### L IPID, TSH, CMP #### [facility] [address] [address] [address] Michelle Newell Creatinine [Mass/Vol] 0.75 mg/dL Normal 0.70-1.30 [facility] Comment on above: Performed By: #### L IPID, TSH, CMP #### [facility] [address] [address] [address] Michelle Newell EGFR-AF [place] ISLANDER >60 Normal >=60 [facility] Comment on above: Performed By: #### L IPID, TSH, CMP #### [facility] [address] [address] [address] Michelle Newell EGFR-NON AF [place]ER >60 Normal >=60 [facility] Comment on above: Performed By: #### L IPID, TSH, CMP #### [facility] [address] [address] [address] Michelle Newell Globulin (S) [Mass/Vol] 3.4 g/dL Normal [facility] Comment on above: Performed By: #### L IPID, TSH, CMP #### [facility] [address] [address] [address] Michelle Newell Glucose [Mass/Vol] 131 mg/dL Critically high 74-106 [facility] Comment on above: Performed By: #### L IPID, TSH, CMP #### [facility] [address] [address] [address] Michelle Newell Potassium [Moles/Vol] 3.9 mmol/L Normal 3.5-5.1 [facility] Comment on above: Performed By: #### L IPID, TSH, CMP #### [facility] [address] [address] [address] Michelle Newell Protein [Mass/Vol] 7.6 g/dL Normal 6.4-8.2 [facility] [place] [facility] Comment on above: Performed By: #### L IPID, TSH, CMP #### [facility] [address] [address] [address] Michelle Newell Sodium [Moles/Vol] 139 mmol/L Normal 136-145 [facility] [place] [facility] Comment on above: Performed By: #### L IPID, TSH, CMP #### [facility] [address] [address] [address] Michelle Newell Urea nitrogen [Mass/Vol] 11.0 mg/dL Normal 7.0-18.0 [facility] Comment on above: Performed By: #### L IPID, TSH, CMP #### [facility] [address] [address] [address] Michelle Newell Urea nitrogen/Creatinine [Mass ratio] 14.7 mg/mg Normal [facility] Comment on above: Performed By: #### L IPID, TSH, CMP #### [facility] [address] [address] [address] Michelle Newell TSHon 03-12-2022 TSH 4.267 uIU/mL Critically high 0.358-3.740 [facility] [place] [facility] Comment on above: Performed By: #### L IPID, TSH, CMP #### [facility] [address] [address] [address] Michelle Newell Pathology Noteon 07-30-2021 Pathology Note [id number] .[id number]:127 Normal [facility] Outside Colonoscopyon 2021 Outside Colonoscopy [id number]. 00CD:127 Normal [facility] Reminderson 07-29-2021 Reminders - From: Etelvina Saxena LPN To: GSN - Clinical; Sent: 07/29/2021 09:57:59 EDT Show up: 06/28/2031 07:00:00 EST Subject: colonoscopy recall Due Date/Time: 07/29/2031 07:00:00 EDT Reminder/Recall Patient is due for screening colonoscopy 07/29/2031. Normal [facility] Lab Reportson 07-26-2021 Lab Reports [id number] .[id number]:127 Normal [facility] Covid-19 PCR (CVDTB)on 06-30 SARS-CoV-2 (COVID-19) RNA FRANCE+probe Ql (Unsp spec) Not detected Normal NOT DETECTED [facility] Comment on above: Result Comment: When diagnostic testing is negative, the possibility of a false negative should be considered in the context of a patient's recent exposures and the presence of clinical signs and symptoms consistent with SARS-CoV-2. This test is not yet approved or cleared by the [place] Food and Drug Administration (FDA). This test was developed by [employer] [place], [place]. The performance characteristics of this test were validated by [facility]. The results are not intended to be used as the sole means for clinical diagnosis or patient management decisions. [facility] is authorized under Clinical Laboratory Improvement [...] for this test is supported by the [place] of Health and Human Service's declaration that [...] used). Performed By: #### C VDTB #### [facility] [address] [place] [address] Dr. Michelle Newell Consent for Procedure/Surger yon 07-15-2021 Consent for Procedure/Surgery [id number] .[id number]:127 Normal [facility] Physician Referralon 022 Physician Referral [id number] .[id number]:127 Normal [facility] Vital Signs Date Time Vital Sign Value Performing Clinician Facility 02-21-2024 14:35-0400 Body height 172.72 cm [facility] 02-21-2024 14:35-0400 Body mass index (BMI) [Ratio] 28.4 kg/m2 [facility] 02-21-2024 14:35-0400 Body weight 84.93 kg [facility] 02-21-2024 14:35-0400 Diastolic blood pressure 83 mm[Hg] [facility] 02-21-2024 14:35-0400 Heart rate 80 /min [facility] 02-21-2024 14:35-0400 Respiratory rate 12 /min [facility] 02-21-2024 14:35-0400 Systolic blood pressure 150 mm[Hg] [facility] 01-05-2024 13:00-0400 Body height 172.7 cm Cordelia Petznick DO Work Phone: [facility] 01-05-2024 13:00-0400 Body mass index (BMI) [Ratio] 29.35 kg/m2 Cordelia Petznick DO Work Phone: [facility] 01-05-2024 13:00-0400 Body temperature 98.29 [degF] Cordelia Petznick DO Work Phone: [facility] 01-05-2024 13:00-0400 Body weight 87.54 kg Cordelia Petznick DO Work Phone: [facility] 01-05-2024 13:00-0400 Diastolic blood pressure 72 mm[Hg] Cordelia Petznick DO Work Phone: [facility] 01-05-2024 13:00-0400 Heart rate 86 /min Cordelia Petznick DO Work Phone: [facility] 01-05-2024 13:00-0400 SaO2% (BldA) [Mass fraction] 94 % Cordelia Petznick DO Work Phone: [facility] 01-05-2024 13:00-0400 Systolic blood pressure 126 mm[Hg] Cordelia Johnson DO Work Phone: [facility] 10-06-2023 10:24-0400 Body height 172.72 cm [facility] 10-06-2023 10:24-0400 Body mass index (BMI) [Ratio] 29 kg/m2 [facility] 10-06-2023 10:24-0400 Body weight 86.8 kg [facility] 10-06-2023 10:24-0400 Diastolic blood pressure 80 mm[Hg] [facility] 10-06-2023 10:24-0400 Heart rate 75 /min [facility] 10-06-2023 10:24-0400 Respiratory rate 12 /min [facility] 10-06-2023 10:24-0400 Systolic blood pressure 130 mm[Hg] [facility] 09-30-2022 10:00-0400 Body height 172.72 cm Stalin Ball Other [facility] [employer] Other 09-30-2022 10:00-0400 Body mass index (BMI) [Ratio] 28.67 kg/m2 Stalin Ball Other [facility] [employer] Other 09-30-2022 10:00-0400 Body weight 85.55 kg Stalin Ball Other [employer] Other 09-30-2022 10:00-0400 Diastolic blood pressure 80 mm[Hg] Stalin Ball Other [employer] Other 09-30-2022 10:00-0400 Respiratory rate 12 /min Stalin Ball Other [employer] Other 09-30-2022 10:00-0400 Systolic blood pressure 135 mm[Hg] Stalin Ball Other [employer] [facility] [employer] Other Encounters Encounter Date Encounter Type Care Provider Facility Start: 02-21-2024 End: 02-21-2024 ambulatory [facility] Work Phone: Start: 02-21-2024 End: 02-21-2024 Patient encounter procedure [facility] Work Phone: Start: 01-05-2024 End: 01-05-2024 Office outpatient visit 25 minutes Cordelia Johnson DO Work Phone: [facility] Comment on above: Hypoglycemia due to type 1 diabetes mellitus ([facility]) (Primary Dx); 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 ([facility]) Start: 01-05-2024 End: 01-05-2024 ambulatory OCRDELIA COLONICK Not Available Start: 12-15-2023 Non-patient / Non-visit [facility] [place] Work Phone: Start: 10-11-2023 End: 10-11-2023 ambulatory AP CABRERA Not Available Start: 10-06-2023 End: 10-06-2023 ambulatory [facility] Work Phone: Start: 10-06-2023 End: 10-06-2023 Encounter for general adult medical examination without abnormal findings [facility] Start: 10-06-2023 End: 10-06-2023 Patient encounter procedure [facility] Work Phone: Start: 09-29-2023 Non-patient / Non-visit [facility] [place] Work Phone: Start: 09-01-2023 End: 09-01-2023 ambulatory CORDELIA Mosqueda PETZNICK Not Available Start: 04-14-2023 End: 04-14-2023 ambulatory CORDELIA M PETZNICK Not Available Start: 01-18-2023 End: 01-18-2023 ambulatory Stalin Borjas Other [place] [employer] Other Start: 01-18-2023 Telephone encounter Stalin Borjas [facility] Start: 10-24-2022 End: 10-24-2022 ambulatory Stalin Borjas Other [employer] Other Start: 10-24-2022 Telephone encounter Stalin GOMES [facility] Start: 10-18-2022 End: 10-18-2022 ambulatory Stalin Borjas Other [employer] Other Start: 10-18-2022 Telephone encounter Stalin GOMES G [facility] Start: 09-30-2022 End: 09-30-2022 ambulatory Stalin Borjas Other [employer] Other Start: 09-30-2022 Encounter for genera l adult medical examination without abnormal findings Stalin Borjas [facility] Start: 09-30-2022 Periodic preventive med est patient 40-64yrs Stalin Borjas [facility] Start: 03-15-2022 Encounter for genera l adult medical examination without abnormal findings DR CORDELIA JOHNSON [facility] Start: 03-12-2022 End: 03-13-[address] CORDELIA JOHNSON Facility:[facility] Start: 03-12-2022 End: 03-13-2022 Encounter for general adult medical examination without abnormal findings DR CORDELIA JOHNSON Facility:[facility] Start: 09-21-2021 End: 09-21-2021 ambulatory Ubaldo Burgos Other [place] [employer] Other Start: 09-21-2021 Office outpatient vi sit 15 minutes [facility] Start: 08-10-2021 End: 09-24-2021 ambulatory UBALDO BURGOS Facility:[facility] Start: 07-28-2021 Encounter for prepro cedural laboratory examination DR ELIZ CHICAS [facility] Start: 07-28-2021 End: 07-28-[address] ELIZ CHICAS Facility:[facility] Start: 07-27-2021 End: 07-28-2021 ambulatory UBALDO BURGOS [facility] [employer] Other Start: 07-27-2021 Office outpatient ne w 30 minutes Ubaldo Burgos [facility] Start: 07-24-2021 End: 03-27-[address] ELIZ CHICAS Facility:[facility] Start: 07-24-2021 End: 07-25-2021 Encounter for preprocedural laboratory examination DR ELIZ CHICAS Facility:[facility] Start: 07-03-[address] STALIN BORJAS Facili ty:H1 Start: 06-29-2021 Encounter for genera l adult medical examination without abnormal findings Stalin Borjas Other [facility] [employer] Other Procedures Date Procedure Procedure Detail Performing Clinician Start: 01-05-2024 Hemoglobin glycosyla feng a1c Cordelia Johnson DO Work Phone: Depression screening [facility] [employer] Other Plan of Treatment Date Care Activity Detail Author Start: 05-10-2024 End: 05-10-2024 Patient encounter procedure 05/10/2024 1:00 PM EST Office Visit [facility] [address] [place] [id number] Cordelia Johnson, DO [address] [place] [address] [facility] [address] Start: 04-05-2024 Hemoglobin A1c measurement Diabetes: Hemoglobin A1C [facility] Start: 01-23-2024 End: 01-23-2024 Patient encounter procedure 01/23/2024 12:45 PM EDT Office Visit [facility] [address] [place] [id number] Ap Cabrera, DO [address] [id number] [facility] Start: 01-19-2024 Glaucoma screening Diabetes: Retinopathy Screening [facility] Start: 12-31-2023 Influenza vaccination Influenza Vaccine (#1) [facility] Start: 03-12-2023 Urine screening for protein Diabetes: Urine Protein Screening [facility] Start: 1975 Screening for malignant neoplasm of colon [facility] Thyroperoxidase Ab [Units/volume] in Serum or Plasma [facility] Immunizations Immunization Date Immunization Notes Care Provider Fa cili 04-13-2021 influenza, injectabl e, quadrivalent, contains preservative Stalin Borjas Other [facility] 04-13-2021 influenza, injectabl e, quadrivalent, preservative free [facility] 04-13-2021 influenza virus vaccine, unspecified formulation Cordeliaflor Johnson DO Work Phone: [facility] 02-24-2021 COVID-19 Vaccine Moderna - Documentation Purposes Only Stalin Borjas Other [facility] 02-23-2021 Moderna SARS-CoV-2 Booster Vaccination [place] [facility] DO Work Phone: [facility] 08-09-2020 COVID-19 Vaccine Moderna - Documentation Purposes Only Stalin Borjas Other [facility] 07-13-2020 COVID-19 Vaccine Moderna - Documentation Purposes Only Stalin Borjas Other [facility] Payers Date Payer Category Payer Unknown BCBS BCBS [id number] 2022-Present [phone] [address] [place] [address] [id number] 2022 Blue Cross Blue Shield [id number] 2019 Unknown [id number] 1973 Unknown [id number] 1973 Unknown [id number] 1973 Unknown [id number] 93 1973 Unknown [id number] 1973 Unknown [id number] 93 1973 Unknown [id number] 93 1973 Unknown [id number] 259 1973 Unknown [id number] 259 1973 Unknown [id number] 259 1973 Unknown [id number] 259 1959 Private Health Insurance [id number] 1961 Self-pay Social History Date Type Detail Facility Start: 12-19-2022 End: 01-05-2024 Sex Assigned At [facility] Start: 09-21-2021 End: 12-23-2022 Tobacco smoking status [facility] Ex-smoker (finding) [facility] Start: 1975 Sex Assigned At Male [facility] History of tobacco use Current smoker [facility] History of tobacco use Cigarette Smoker [facility] Start: 12-23-2022 Tobacco use and exposure Smokeless tobacco non-user [facility] Start: 01-05-2024 Alcoholic beverage intake Current drinker of alcohol (finding) [facility] Start: 12-19-2022 End: 01-05-2024 History of Social function [facility] Within the last year , have you been afraid of your partner or ex-partner? No [facility] Are you now , , , , never or living with a partner? [facility] How often to you hav e a drink containing alcohol? 2-3 time sa week [facility] How many standard drinks containing alcohol do you have on a typical day? 3 or 4 [facility] How often do you hav e 6 or more drinks on 1 occasion? Never [facility] How hard is it for y ou to pay for the very basics like food, housing, medical care, and heating Not hard at all [facility] Do you feel stress - tense, restless, nervous, or anxious, or unable to sleep at night because your mind is troubled all the time - these days [OSQ] Not at all [facility] (I/We) worried wheth er (my/our) food would run out before (I/we) got money to buy more. 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 Encouraged to check blood glucose throughout the day with some fasting and some PP readings. They are to bring their glucose meter/cgm in to all appointments. All of the patients questions, treatment options, and current care plan and goals were discussed. A copy of this along with pertinent instructions were given to the patient at the end of the appointment. The patient voices understanding of all of this and is to call in between appointments if they have any problems or questions. Gregorio Lea is doing very well and encouraged on this. , The patient is wearing their cgm on a daily basis and making decisions in regards to adjusting insulin daily as well for at least the last 60 days , Instructions given today include: Pump instructions and Dietary education. Will tighten carb ratio for dinner and increase his basal rate in the evening. Images from the original note were not included. Gregorio Lea is a 48 y.o. male presents with chief complaint of Diabetes HPI: Diabetes Mellitus Follow-up: Gregorio Lea is here for follow-up evaluation of diabetes mellitus. The initial diagnosis of diabetes was made in 1985 Diabetes complications: none He has been checking his blood glucose with a omnipod 5 insulin pump-linked in glooko- and Dexcom G6 CGM on a daily basis. Running smooth and in range overnight and during the day. Tends to rise after dinner and in the evening. 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 (CMS/HCC) AKIN (obstructive sleep apnea) Benign prostatic hyperplasia with lower urinary tract symptoms Social History Tobacco Use Smoking status: Former Current packs/day: 1.50 Types: Cigarettes Smokeless tobacco: Never Substance Use Topics Alcohol use: Yes Comment: coffee 2-3 cups per day Drug use: Never No Known Allergies Synopsis [facility] 01/05/2024 13:09 Antidiabetic medications Insulin Aspart (w/Niacinamide) INJECT A MAXIMUM OF 70 UNITS SUBCUTANEOUSLY EVERY DAY (100 UNIT/ML SOLN) No sig Labs MHPT A1C 7.2 Outpatient prescription Medication marked as long-term REVIEW OF SYMPTOMS: Review of Systems Constitutional: Negative for appetite change, fatigue and unexpected weight change. Eyes: Negative for visual disturbance. Respiratory: Negative for cough, shortness of breath and wheezing. Cardiovascular: Negative for chest pain, palpitations and leg swelling. Neurological: Negative for numbness. Endocrine: Negative for polydipsia, polyphagia and polyuria. OBJECTIVE: 01/05/2024 1:00 PM 10/11/2023 1:37 PM 09/01/2023 1:33 PM Vitals BMI 29.35 kg/m2 29.04 kg/m2 29.32 kg/m2 Systolic 126 130 124 Diastolic 72 78 70 Heart Rate 86 80 97 Temp 98.3 F 98.7 F Resp 16 Height (in) 5' 8 5' 8 5' 7.5 Weight (lb) 193 191 190 Visit Report Report Report Report Physical Exam Constitutional: General: He is not in acute distress. Appearance: Normal appearance. Cardiovascular: Rate and Rhythm: Normal rate and regular rhythm. Heart sounds: No murmur heard. No friction rub. No gallop. Pulmonary: Breath sounds: Normal breath sounds. No wheezing, rhonchi or rales. Musculoskeletal: General: No swelling. Neurological: Mental Status: He is alert. 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 Encouraged to check blood glucose throughout the day with some fasting and some PP readings. They are to bring their glucose meter/cgm in to all appointments. All of the patients questions, treatment options, and current care plan and goals were discussed. A copy of this along with pertinent instructions were given to the patient at the end of the appointment. The patient voices understanding of all of this and is to call in between appointments if they have any problems or questions. Gregoriofrederic Teranaby is doing very well and encouraged on this. , The patient is wearing their cgm on a daily basis and making decisions in regards to adjusting insulin daily as well for at least the last 60 days , Instructions given today include: Pump instructions and Dietary education. Will tighten carb ratio for dinner and increase his basal rate in the evening. Relevant Orders POCT glycosylated hemoglobin (Hb A1C) docked device (Completed) Follow up in about 4 months (around 05/06/2024) for Recheck. Patient's Medications New Prescriptions No medications on file Previous Medications ATORVASTATIN (LIPITOR) 20 MG TABLET Take 20 mg by mouth in the morning. CONTINUOUS GLUCOSE SENSOR (DEXCOM G6 SENSOR) MISC 1 each Every 10 (ten) days CONTINUOUS GLUCOSE TRANSMITTER (DEXCOM G6 TRANSMITTER) MISC Use as instructed every 90 days FIASP 100 UNIT/ML SOLUTION INJECT A MAXIMUM OF 70 UNITS SUBCUTANEOUSLY EVERY DAY FREESTYLE LITE TEST STRIP Use as instructed GLUCOSE BLOOD TEST STRIP every 6 (six) hours. VENLAFAXINE XR (EFFEXOR XR) 75 MG 24 HR CAPSULE Take 75 mg by mouth Daily Modified Medications Modified Medication Previous Medication INSULIN DISPOSABLE PUMP (OMNIPOD 5 G6 PODS, GEN 5,) MISC Insulin Disposable Pump (Omnipod 5 G6 Pods, Gen 5,) misc Inject 1 each under the skin every 3 (three) days Basal 12A 1.3, 6P 2.0 ICR: 12A 10, 10A 12, 3P 9, ISF: 65, target: 12 Inject 1 each under the skin every 3 (three) days Basal 12A 1.3, 6P 1.8 ICR: 12A 10, 10A 12, 3P 10, ISF: 65, target: 12 Discontinued Medications ESCITALOPRAM (LEXAPRO) 10 MG TABLET 1 (one) time each day at the same time. I have reviewed and reconciled the history and medication list with the patient today. documented in this encounter [facility] 01-18-2023 Evaluation note Encounter Date Diagnosis Assessment Notes Dec, 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 (ICD-10 - E10.3553) [employer] Other 06-26-2023 Evaluation note* Encounter Date Diagnosis Assessment Notes Treatment Notes Treatment Clinical Notes Sep, AKIN (obstructive sleep apnea) (ICD-10 - G47.33) AHI 18 Psat 79% [facility] Other 06-20-2023 Evaluation note* Encounter Date Diagnosis Assessment Notes Treatment Notes Treatment Clinical Notes Sep, Allergic contact dermatitis due to plants, except food (ICD-10 - L23.7) [facility] Other 06-02-2023 Evaluation note* Encounter Date Diagnosis [...] will send referral for home sleep study [facility] Other 05-24-2022 Evaluation note* Encounter Date Diagnosis [...] capsulitis of left shoulder (ICD-10 - M75.02) [facility] Other 03-30-2022 NoteOPERATIVE NOTE PREOPERATIVE DIAGNOSIS: Colorectal [...] in 10 years. CC: Stalin Borjas D.O. [facility] Signed and Approved by: DR ELIZ CHICAS . 07/30/2021 05:17:00[facility]03-30-2022 NoteOPERATIVE NOTE PREOPERATIVE DIAGNOSIS: Colorectal screening. POSTOPERATIVE [...] 10 years. CC: Stalin Borjas D.O. : [facility] Signed and Approved by: DR ELIZ CHICAS . 07/30/2021 05:17:00[facility]03-29-2022 NotePROCEDURE: XR SHOULDER MACRINA 2V or > [...] Electronically authenticated by: SAY VILLASENOR Date: 2021-07-27 17:23[facility]03-29-2022 Evaluation note* Encounter Date Diagnosis Assessment Notes [...] motion exercise. Formal order of physical therapy. [facility] Other 03-16-2022 NoteChief Complaint consultation for colonoscopy [facility] Staff 45 year old [...] Date Status influenza virus vaccine, inactivated 01/2021 [facility] Comment on above:Result Comment: Electronically Signed By: ZULEMA PICHARDO, Eliz Richards\Date and Time Signed: 07/14/21 17:02 EDTEvaluation note* Diagnosis Onset Date Resolution Status Benign prostatic hyperplasia with lower urinary tract symptoms acute AKIN (obstructive sleep apnea) acute Overweight acute Type 1 diabetes mellitus with hyperglycemia acute Screening PSA (prostate specific antigen) noneactive Wellness examination noneact geo [facility] Work Phone: Evaluation note* Diagnosis Onset Date Resolution Status Fatigue acute Hypothyroid acute AKIN (obstructive sleep apnea) acute Overweight acute [facility] Work Phone: Evaluation note* Diagnosis Hypoglycemia due to type 1 diabetes mellitus (CMS/HCC)- Primary 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 (CMS/HCC) documented in this encounter [facility] N[facility]ative - Reported* Type Description Date Medical History diabetes mallitus Surgical History carpal tunnel release [facility] Other Hisyhwy general Narrative - Reported* Type Description Date Medical History diabetes mallitus Medical History Pure hypercholesterolemia Medical History Adhesive capsulitis of right marsha ulder Medical History HAILEY (generalized anxiety disorde r) Surgical History carpal tunnel release- BILATERA L 2015 Surgical History COLONOSCOPY 2021 Hospitalization History SEE SURGICAL HX [facility] Other History general Narrative - Reported* Type Description Date Medical History diabetes mallitus Medical History Pure hypercholesterolemia Medical History Adhesive capsulitis of right marsha ulder Medical History HAILEY (generalized anxiety disorde r) Medical History AKIN Surgical History carpal tunnel release- BILATERA L 2014 Surgical History COLONOSCOPY 2021 Hospitalization History SEE SURGICAL HX [facility] Other History general Narrative - Reported* Type Description Date Medical History diabetes mallitus Medical History Pure hypercholesterolemia Medical History Adhesive capsulitis of right marsha ulder Medical History HAILEY (generalized anxiety disorde r) Medical History AKIN Medical History Proliferative diabetic retinopat hy Surgical History carpal tunnel release- BILATERA L 2014 Surgical History COLONOSCOPY 2021 Hospitalization History SEE SURGICAL HX [facility] Other Summary Purpose Family History No Family History Records FoundNo Family History Records FoundNo Family History Records Found Advance Directives Advance Directive Response Recorded Date/ Time Advance Directives No October 05 9:51am Chief Complaint and Reason for Visit Chief Complaint wellness Reason for Visit Benign prostatic hyp erplasia with lower urinary tract symptoms AKIN (obstructive sleep apnea) Overweight Type 1 diabetes mellitus with hyperglycemia Screening PSA (prostate specific antigen) Wellness examination Chief Complaint Med f/u Reason for Visit Fatigue Hypothyroid AKIN (obstructive sleep apnea) Overweight Additional Source Comments (unrecognized sect ion and content) No Status Records FoundNo Status Records FoundNo Status Records Found INFORMATION SOURCE (unrecogn ized section and content) DATE CREATED AUTHOR 08/22/2021 [facility] DATE CREATED AUTHOR AUTHOR'S ORGANIZ ATION 03/23/2022 [facility] DATE CREATED AUTHOR AUTHOR'S ORGANIZ ATION 01/07/2024 [facility] EPIC REASON FOR VISIT (unrecogniz ed section and content) Reason Comments Diabetes Care Teams (unrecognized sec tion and content) Team Status: Active Member Role Status Dates Stalin Borjas , DO Primary Care Provider Active Team Status: Active Member Role Status Dates Stalin Borjas , DO Primary Care Provide r, Attending Provider Active Start: September 29, 2023 Team Status: Inactive Member Role Status Dates Stalin Borjas , DO Primary Care Provide r, Attending Provider Active Start: October 06, 2023 End: October 06, 2023 Team Status: Active Member Role Status Dates Stalin Borjas , DO Primary Care Provide r, Attending Provider Active Start: December 15, 2023 Team Status: Inactive Member Role Status Dates Stalin Borjas , DO Primary Care Provide r, Attending Provider Active Start: February 21, 2024 End: February 21, 2024 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 [facility] [employer] [facility]. provides no warranty or guarantee of the accuracy or completeness of information in this document.
[2024-04-19 14:01] LABS: Free T4 0.62 ng/dL (0.76-1.46)
[2024-04-19 14:06] LABS: Thyroid Stimulating Hormone 4.122 uIU/mL (0.358-3.740)
[2024-04-20 08:09] LABS: Triiodothyronine (T3) 114 ng/dL (71-180)
== END 2024-04-19 12:50 | disposition home or self-care (01) ==
LOC: LAB 12:50
PROVIDERS: PCP Internal Medicine; Visit Provider Internal Medicine
DX: R79.89 Other specified abnormal findings of blood chemistry (principal)
CPT/HCPCS: 36415; 84439; 84443; 84480

== ENCOUNTER 2024-07-12 07:42 | Outpatient (OUT) | payer BC, SELFPAY ==
--- OUTSIDE RECORDS SUMMARY | 2024-07-12 07:48 | XMS_ITS | CCD ---
Author Organization [facility] Care Team Providers Care Returned Goods Receiving Clerk Name Role Phone Aubrey Ubaldo Unavailable [...] DORKOSKIE, JUSTYN Consulting Unavailable Stalin Borjas Unavailable Cordelia Johnson DO Unavailable Stalin Borjas MD Primary Care Provider CORDELIA JOHNSON Attending Unavailable STALIN BORJAS Referring Unavailable AP CABRERA Attending Unavailable CORDELIA JOHNSON Attending Unavailable STALIN BORJAS Referring Unavailable CORDELIA JOHNSON Attending Unavailable Medications Current Medications Medication Drug Class(es) Dates Sig (Normalized) Sig (Original) atorvastatin 20 mg oral tablet (8 sources) HMG-CoA Reductase Inhibitor Start: 4 End: 4 take 20 mg by mouth once daily Atorvastatin Active 20 MG PO Daily 90 90 October 06, 2023 10:43am Continuous Glucose Sensor (Dexcom G6 Sensor) [facility] (4 sources) Start: 4 End: 5 Continuous Glucose Sensor (Dexcom G6 Sensor) misc Indications: 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 (CMS/HCC) 1 each Every 10 (ten) days 9 each 3 09/01/2023 08/31/2024 Active Continuous Glucose Transmitter (Dexcom G6 transmitter) misc (4 sources) Start: 4 Continuous Glucose Transmitter (Dexcom G6 transmitter) misc Indications: 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 (CMS/HCC) Use as instructed every 90 days 1 each 3 09/01/2023 Active glucagon 3 mg nasal powder (2 sources) Antihypoglycemic Agent Start: 5 End: 6 take 3 mg nasal route once glucagon (Baqsimi One Pack) 3 MG/DOSE nasal powder Indications: 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 (CMS/HCC) Administer 3 mg into affected nostril(s) 1 (one) time if needed for low blood sugar 1 each 1 05/10/2024 05/10/2025 Active Hydrocortisone / Neomycin / Polymyxin B (6 sources) Aminoglycoside Antibacterial, Polymyxin-class Antibacterial, Corticosteroid Start: 4 Cortisporin [id number] 4 drops into affected ear Otic Three times a day for 7 days 18 Jun, 2013 Active Insulin Aspart (B3) Pump Cart (2 sources) Start: 4 Insulin Aspart (B3) Pump Cart (Fiasp Pumpcart) 100 unit/mL (1.6 mL) cartridge Active 1 sliding scale dose SUBCUT Use as Directed October 06, 2023 12:00am 3 ml insulin degludec 100 unt/ml pen injector (2 sources) Insulin Analog insulin degludec (Tresiba FlexTouch) 100 UNIT/ML injection Inject under the skin at bedtime 36 units if pump fails Active Insulin Disposable Pump (Omnipod 5 [id number] Pods Gen 5) misc (4 sources) Start: 5 Insulin Disposable Pump (Omnipod 5 [id number] Pods Gen 5) misc Indications: 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 (CMS/HCC) Inject 1 each under the skin every 3 (three) days Basal 12A 1.3, 6P 2.0 ICR: 12A 10, 10A 12, 3P 7, ISF: 65, target: 12 30 each 05/10/2024 Active Start: 05-09-2024 End: 05-10-2024 Insulin Disposable Pump (Omn ipod 5 [id number] Pods Gen 5) misc Indications: 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 Take before meals. Active predniSONE 20 mg oral tablet (3 sources) Start: 023 predniSONE 20 MG 1 tablet Orally tid w/ food x 3 days, then bid w/ food x 3 days, then qd w/ food x 3 days for 9 days Sep, Active 24 hr venlafaxine 75 mg extended release oral capsule (7 sources) Serotonin and Norepinephrine Reuptake Inhibitor Start: take 1 capsule by mouth once daily venlafaxine XR (Effexor XR) 75 MG 24 hr capsule Take 75 mg by mouth Daily 01/03/2024 Active Start: 12-25-2023 End: 12-25-2023 take 1 dose by mouth once daily in the morning Venlafaxine Active 150 MG PO Every morning 90 90 December 25, 2023 8:44pm Start after completing 7 days at dose of 75mg q am (omit instructions after initial prescription) Completed/Discontinued Medications Medication Drug Class(es) Dates Sig [...] 01/05/2024 Discontinued (Therapy completed) Insulin Aspart U-100 (Novolog U-100 Insulin Aspart) 100 unit/mL solution (2 sources) Start: 10-06-2023 End: 10-06-2023 Insulin Aspart U-100 (Novolog U-100 Insulin Aspart) 100 unit/mL solution Discontinued SUBCUT As Directed October 06, 2023 12:00am October 06, 2023 10:24am insulin aspart, human 100 unt/ml injectable solution (12 sources) Insulin Analog Start: 03-12-2024 End: 05-10-2024 inject 70 [IU] into the eye(s) once insulin aspart (NovoLOG) 100 UNIT/ML injection Indications: 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 (CMS/HCC) Per pump (max daily 70 units) 30 mL 3 03/12/2024 05/10/2024 Discontinued Start: 01-26-2024 inject 70 [IU] by olivo bcutaneous injection once daily Fiasp 100 UNIT/ML solution Indications: Type 1 diabetes mellitus without complications (CMS/HCC) INJECT A MAXIMUM OF 70 UNITS SUBCUTANEOUSLY EVERY DAY 70 mL 3 01/26/2024 Active Start: 02-06-2023 inject 70 [IU] by olivo bcutaneous injection once daily Fiasp 100 UNIT/ML solution Indications: Type 1 diabetes mellitus without complications (CMS/HCC) INJECT A MAXIMUM OF 70 UNITS SUBCUTANEOUSLY EVERY DAY 70 mL 3 02/06/2023 Active NovoLOG 100 UNIT /ML as directed Subcutaneous Active Problems Active Problems Problem Classification Problem Date Documented Date Episodic/Chronic Allergic reactions (1 source) Allergic contact dermatitis due to plants, except food Episodic Anxiety disorders (10 sources) Generalized anxiety disorder; Translations: [Generalized anxiety disorder] Onset: 05-24-2019 12-23-2022 Chronic Diabetes mellitus with complications (20 sources) Hyperglycemia due to type 1 diabetes mellitus; Translations: [Type 1 diabetes mellitus with hyperglycemia] Onset: 10-06-2015 Chronic Diabetes mellitus without complication (1 source) Type 1 diabetes mellitus without complications; Translations: [TYPE 1 DM WITHOUT COMPLICATIONS] Onset: 08-05-2021 Chronic Disorders of lipid metabolism (10 sources) Pure hypercholesterolemia , unspecified; Translations: [Pure hypercholesterolemia ] Onset: 10-06-2015 12-23-2022 Chronic Hyperplasia of prostate (7 sources) Benign prostatic hyperplasia; Translations: [Benign prostatic [...] prostate] Onset: 07-28-2021 Episodic Residual codes; unclassified (8 sources) Obstructive sleep apnea syndrome; Translations: [Obstructive [...] 08-05-2021 Episodic Other aftercare (1 source) Other snf (current) drug therapy; Translations: [OTH [facility] CURRENT DRUG THERAPY] Onset: 08-05-2021 Episodic Other [...] Range Facility HbA1c (Bld) [Mass fraction]o n 05-10-2024 Interpretation and review of laboratory results [facility] Cell countson 05-10-2024 HbA1c (Bld) [Mass fraction] 7.4 % [facility] HbA1c (Bld) [Mass fraction]o n 01-05-2024 Interpretation and review of laboratory results Normal [facility] - Hematology and Cell countson 01-05-2024 HbA1c (Bld) [Mass fraction] 7.2 % [facility] Laboratory - Chemistry and C hemistry - challengeon 12-15-2023 Free T4 [Mass/Vol] 0.58 ng/dL Low 0.76-1.46 [facility] TSH Qn 4.748 m[IU]/L High 0.358-3.740 [facility] No Panel Informationon 12-14 Testosterone Level 418 ng/dL 264-916 [facility] Comment on above: Adult male reference interval is based on a population ofhealthy nonobese males (BMI <30) between 19 and 39 yearsold. Jose Ramon et.al. JCEM 2017,102;[id number]. PMID:[id number]. Total Triiodothyronine 97 ng/dL 71-180 [facility] Comment on above: Performed at: [address] Director: Brenton Hewitt PhD, Phone: [phone] Basophils Auto (Bld) [#/Vol] on 09-29-2023 Basophils (Bld) [#/Vol] 0.1 10 3/uL 0.0-0.1 [facility] Basophils/100 WBC Auto (Bld) on 09-29-2023 Basophils/100 WBC (Bld) 0.8 % 0.2-2.0 [facility] Cholesterol in LDL Calc [Mas s/Vol]on 09-29-2023 Cholesterol in LDL [Mass/Vol] 92.0 mg/dL [facility] Comment on above: <100 mg/dl [id number] 0-129 mg/dl NEAR OR ABOVE [id number] mg/dl BORDERLINE [id number] mg/dl HIGH>190 mg/dl VERY HIGH Cholesterol in VLDL Calc [Ma ss/Vol]on 09-29-2023 Cholesterol in VLDL [Mass/Vol] 10.2 mg/dL [facility] Eosinophils/100 WBC Auto (Bl d)on 09-29-2023 Eosinophils/100 WBC (Bld) 3.9 % 0.9-7.0 [facility] Erythrocyte distribution wid th Auto (RBC) [Ratio]on 09-29-2023 Erythrocyte distribution width (RBC) [Ratio] 12.2 % 11.0-15.0 [facility] Estimated glomerular filtrat ion rate (GFR) non- Americanon 09-29-2023 GFR/1.73 sq M.predicted among non-blacks MDRD (S/P/Bld) [Vol rate/Area] mL/min/{1.73_m2} >=60 [facility] Globulin Calc (S) [Mass/Vol] on 09-29-2023 Globulin (S) [Mass/Vol] 3.4 g/dL [facility] Glucose mean value [Mass/vol ume] in Blood Estimated from glycated hemoglobinon 09-29-2023 Average glucose Estimated from glycated hemoglobin (Bld) [Mass/Vol] 157 mg/dL [facility] Hematocrit Auto (Bld) [Volum e fraction]on 09-29-2023 Hematocrit (Bld) [Volume fraction] 43.1 % 42.0-54.0 [facility] Hemoglobin [Mass/volume] in Bloodon 09-29-2023 Hemoglobin (Bld) [Mass/Vol] 14.2 g/dL 14.0-18.0 [facility] Laboratory - Chemistry and C hemistry - challengeon 09-29-2023 Albumin [Mass/Vol] 3.7 g/dL 3.4-5.0 [facility] ALP [Catalytic activity/Vol] 141 U/L 46-116 [facility] ALT [Catalytic activity/Vol] 58 U/L 16-63 [facility] AST [Catalytic activity/Vol] 28 U/L 15-37 [facility] Bilirubin [Mass/Vol] 0.7 mg/dL 0.2-1.0 [facility] Calcium [Mass/Vol] 8.6 mg/dL 8.5-10.1 [facility] Chloride [Moles/Vol] 103 mmol/L 98-107 [facility] Cholesterol [Mass/Vol] 174 mg/dL <=200 [facility] Cholesterol in HDL [Mass/Vol] 72 mg/dL 40-60 [facility] Comment on above: > or =60 mg/dl - LOW CARDIOVASCULAR RISK<40 mg/dl - HIGH CARDIOVASCULAR RISK CO2 [Moles/Vol] 31.6 mmol/L 21.0-32.0 [facility] Creatinine [Mass/Vol] 0.80 mg/dL 0.70-1.30 [facility] GFR/1.73 sq M.predicted MDRD (S/P/Bld) [Vol rate/Area] mL/min/{1.73_m2} >=60 [facility] Glucose [Mass/Vol] 128 mg/dL 74-106 [facility] Potassium [Moles/Vol] 3.7 mmol/L 3.5-5.1 [facility] Protein [Mass/Vol] 7.1 g/dL 6.4-8.2 [facility] Sodium [Moles/Vol] 141 mmol/L 136-145 [facility] Triglyceride [Mass/Vol] 51 mg/dL <=150 [facility] Urea nitrogen [Mass/Vol] 16.0 mg/dL 7.0-18.0 [facility] Urea nitrogen/Creatinine [Mass ratio] 20.0 mg/mg [facility] Laboratory - Hematology and Cell countson 09-29-2023 HbA1c (Bld) [Mass fraction] 7.1 % 4.5-6.2 [facility] Comment on above: ADA RECOMMENDED LIMI T 4.0 - 6.0ADA THERAPEUTIC TARGET < 7.0ACTION SUGGESTED> 7.0 Immature granulocytes/100 WBC (Bld) 0.4 % 0.0-0.5 [facility] Leukocytes [#/volume] correc feng for nucleated erythrocytes in Blood by Automated counon 09-29-2023 WBC corrected for nucl RBC Auto (Bld) [#/Vol] 7.1 10 3/uL 4.0-11.0 [facility] Lymphocytes Auto (Bld) [#/Vo l]on 09-29-2023 Lymphocytes (Bld) [#/Vol] 1.5 10 3/uL 1.2-3.8 [facility] Lymphocytes/100 WBC Auto (Bl d)on 09-29-2023 Lymphocytes/100 WBC (Bld) 21.2 % 20.5-60.0 [facility] MCH Auto (RBC) [Entitic mass ]on 09-29-2023 MCH (RBC) [Entitic mass] 30.5 pg 25.9-34.0 [facility] MCHC Auto (RBC) [Mass/Vol]on 09-29-2023 MCHC (RBC) [Mass/Vol] 32.9 g/dL 29.9-35.2 [facility] MCV Auto (RBC) [Entitic vol] on 09-29-2023 MCV (RBC) [Entitic vol] 92.5 fL 80.0-94.0 [facility] Microalbumin [Mass/volume] i n Urineon 09-29-2023 Albumin DL <= 20 mg/L (U) [Mass/Vol] mg/dL <=30.0 [facility] Monocytes Auto (Bld) [#/Vol] on 09-29-2023 Monocytes (Bld) [#/Vol] 0.7 10 3/uL 0.3-0.8 [facility] Monocytes/100 WBC Auto (Bld) on 09-29-2023 Monocytes/100 WBC (Bld) 10.3 % 1.7-12.0 [facility] Neutrophils Auto (Bld) [#/Vo l]on 09-29-2023 Neutrophils (Bld) [#/Vol] 4.5 10 3/uL 1.4-6.5 [facility] Neutrophils/100 WBC Auto (Bl d)on 09-29-2023 Neutrophils/100 WBC (Bld) 63.4 % 43.0-75.0 [facility] No Panel Informationon 09-28 Eosinophils # (Auto) 0.3 10 3/uL 0.0-0.7 [facility] Immature Granulocyte # (Auto) 0.03 10 3/uL 0.00-0.03 [facility] Prostate Specific Antigen Screen 0.26 ng/mL <=4.00 [facility] Platelet mean volume Auto (B ld) [Entitic vol]on 09-29-2023 Platelet mean volume (Bld) [Entitic vol] 10.1 fL 9.5-13.5 [facility] Platelets Auto (Bld) [#/Vol] on 09-29-2023 Platelets (Bld) [#/Vol] 331 10 3/uL 150-450 [facility] RBC Auto (Bld) [#/Vol]on RBC (Bld) [#/Vol] 4.66 10 6/uL 4.70-6.10 [facility] Serum or plasma albumin/glob ulin mass ratioon 09-29-2023 Albumin/Globulin [Mass ratio] 1.1 {ratio} [facility] Serum or plasma anion gap de terminationon 09-29-2023 Anion gap [Moles/Vol] 10.1 mmol/L [facility] Serum or plasma total choles terol/high density lipoprotein (HDL) cholesterol mass jing 09-29-2023 Cholesterol.total/Cho lesterol in HDL [Mass ratio] 2.4 {ratio} [facility] Comment on above: 3.3 - 4.4 LOW RISK4. 4 - 7.1 AVERAGE RISK7.1 - 11.0 MODERATE RISK>11.0 HIGH RISK CBC AUTO DIFFon 03-12-2022 BASO # 0.1 103/ul Normal 0.0-0.1 [place] Comment on above: Performed By: #### C BC #### [facility] [address] [place] [address] Dr. Michelle Newell Basophils/100 WBC (Bld) 1.1 % Normal 0.2-2.0 [place] Comment on above: Performed By: #### C BC #### [facility] [address] [place] [address] Dr. Michelle Newell EO # 0.3 103/ul Normal 0.0-0.7 [place] Comment on above: Performed By: #### C BC #### [facility] [address] [place] [address] Dr. Michelle Newell Eosinophils/100 WBC (Bld) 4.6 % Normal 0.9-7.0 [place] Comment on above: Performed By: #### C BC #### [facility] [address] [place] [address] Dr. Michelle Newell Erythrocyte distribution width (RBC) [Ratio] 12.2 % Normal 11.0-15.0 [place] Comment on above: Performed By: #### C BC #### [facility] [address] [place] [address] Dr. Michelle Newell Hematocrit (Bld) [Volume fraction] 45.4 % Normal 42.0-54.0 [place] Comment on above: Performed By: #### C BC #### [facility] [address] [place] [address] Dr. Michelle Newell Hemoglobin (Bld) [Mass/Vol] 15.4 g/dL Normal 14.0-18.0 [place] Comment on above: Performed By: #### C BC #### [facility] [address] [place] [address] Dr. Michelle Newell IG # 0.02 10e3/ul Normal 0.00-0.03 [place] Comment on above: Performed By: #### C BC #### [facility] [address] [place] [address] Dr. Michelle Newell IG % 0.3 % Normal 0.0-0.5 [place] Comment on above: Performed By: #### C BC #### [facility] [address] [place] [address] Dr. Michelle Newell LYMPH # 1.8 103/ul Normal 1.2-3.8 [place] Comment on above: Performed By: #### C BC #### [facility] [address] [place] [address] Dr. Michelle Newell Lymphocytes/100 WBC (Bld) 24.5 % Normal 20.5-60.0 [place] Comment on above: Performed By: #### C BC #### [facility] [address] [place] [address] Dr. Michelle Newell MANUAL DIFF REQ NO Normal [facility] Comment on above: Performed By: #### C BC #### [facility] [address] [place] [address] Dr. Michelle Newell MCH (RBC) [Entitic mass] 30.9 pg Normal 25.9-34.0 [facility] Comment on above: Performed By: #### C BC #### [facility] [address] [address] [address] Michelle Newell MCHC (RBC) [Mass/Vol] 33.9 g/dL Normal 29.9-35.2 [place] Comment on above: Performed By: #### C BC #### [facility] [address] [place] [address] Dr. Michelle Newell MCV (RBC) [Entitic vol] 91.2 fL Normal 80.0-94.0 [place] Comment on above: Performed By: #### C BC #### [facility] [address] [place] [address] Dr. Michelle Newell MONO # 0.8 103/ul Normal 0.3-0.8 [place] Comment on above: Performed By: #### C BC #### [facility] [address] [place] [address] Dr. Michelle Newell Monocytes/100 WBC (Bld) 10.8 % Normal 1.7-12.0 [place] Comment on above: Performed By: #### C BC #### [facility] [address] [place] [address] Dr. Michelle Newell NEUT # 4.3 103/ul Normal 1.4-6.5 [place] Comment on above: Performed By: #### C BC #### [facility] [address] [place] [address] Dr. Michelle Newell Neutrophils/100 WBC (Bld) 58.7 % Normal 43.0-75.0 [facility] Comment on above: Performed By: #### C BC #### [facility] [address] [place] [address] Dr. Michelle Newell Platelet mean volume (Bld) [Entitic vol] 10.2 fL Normal 9.5-13.5 [facility] Comment on above: Performed By: #### C BC #### [facility] [address] [place] [address] Dr. Michelle Newell PLT 326 103/ul Normal 150-450 [facility] Comment on above: Performed By: #### C BC #### [facility] [address] [address] [address] Michelle Newell RBC 4.98 106/ul Normal 4.70-6.10 [place] Comment on above: Performed By: #### C BC #### [facility] [address] [address] [address] Michelle Newell WBC 7.3 103/ul Normal 4.0-11.0 [place] Comment on above: Performed By: #### C BC #### [facility] [address] [address] [address] Michelle Newell LIPID PROFILEon 03-12-2022 CHOL-HDL RATIO NORM SEE BELOW Normal [facility] Comment on above: Result Comment: 3.3 - 4.4 LOW RISK 4.4 - 7.1 AVERAGE RISK 7.1 - 11.0 MODERATE RISK >11.0 HIGH RISK Performed By: #### L IPID, TSH, CMP #### [facility] [address] [address] [address] Michelle Newell Cholesterol [Mass/Vol] 155 mg/dL Normal <=200 [place] Comment on above: Performed By: #### L IPID, TSH, CMP #### [facility] [address] [address] [address] Michelle Newell Cholesterol in HDL [Mass/Vol] 70 mg/dL Critically high 40-60 [place] Comment on above: Performed By: #### L IPID, TSH, CMP #### [facility] [address] [address] [address] Michelle Newell Cholesterol in LDL [Mass/Vol] 76.2 mg/dL Normal [place] Comment on above: Performed By: #### L IPID, TSH, CMP #### [facility] [address] [address] [address] Michelle Newell Cholesterol.total/Cho lesterol in HDL [Mass ratio] 2.2 {ratio} Normal [place] Comment on above: Performed By: #### L IPID, TSH, CMP #### [facility] [address] [address] [address] Michelle Newell HDL NORMAL > or = 60 mg/dl - LO W CARDIOVASCULAR RISK <40 mg/dl - HIGH CARDIOVASCULAR RISK Normal [place] Comment on above: Performed By: #### L IPID, TSH, CMP #### [facility] [address] [address] [address] Michelle Newell LDL CALC NORMAL SEE BELOW Normal [facility] Comment on above: Result Comment: <100 mg/dl OPTIMAL 100 - 129 mg/dl NEAR OR ABOVE OPTIMAL 130 - 159 mg/dl BORDERLINE HIGH 160 - 189 mg/dl HIGH >190 mg/dl VERY HIGH Performed By: #### L IPID, TSH, CMP #### [facility] [address] [address] [address] Michelle Newell Triglyceride [Mass/Vol] 44 mg/dL Normal <=150 [place] Comment on above: Performed By: #### L IPID, TSH, CMP #### [facility] [address] [address] [address] Michelle Newell VLDL CALC 8.8 mg/dL Normal [place] Comment on above: Performed By: #### L IPID, TSH, CMP #### [facility] [address] [address] [address] Michelle Newell MICROALB CREAT RATIO RANDOMo n 03-12-2022 mALB <1.3 Normal <=30.0 [place] Comment on above: Performed By: #### M CRR #### [facility] [address] [address] [address] Michelle Newell MALB CR RATIO 7.6 mg/g Normal 0.0-29.9 [facility] Comment on above: Performed By: #### M CRR #### [facility] [address] [address] [address] Michelle Newell MALB CR RATIO RANGE SEE BELOW Normal [facility] Comment on above: Result Comment: NO M ICROALBUMINURIA 0-29 MG/G CLINICAL MICROALBUMINURIA 30-300 MG/G MACROALBUMINURIA >300 MG/G Performed By: #### M CRR #### [facility] [address] [address] [address] Michelle Newell URINE CREAT 170.74 mg/dL Normal 20.00-300.00 [facility] Comment on above: Performed By: #### M CRR #### [facility] [address] [address] [address] Michelle Newell PROF 14(COMP METB)on 022 Albumin [Mass/Vol] 4.2 g/dL Normal 3.4-5.0 [facility] Comment on above: Performed By: #### L IPID, TSH, CMP #### [facility] [address] [address] [address] Michelle Newell Albumin/Globulin [Mass ratio] 1.2 {ratio} Normal [place] Comment on above: Performed By: #### L IPID, TSH, CMP #### [facility] [address] [address] [address] Michelle Newell ALP [Catalytic activity/Vol] 130 U/L Critically high 46-116 [place] Comment on above: Performed By: #### L IPID, TSH, CMP #### [facility] [address] [address] [address] Michelle Newell ALT [Catalytic activity/Vol] 30 U/L Normal 16-63 [place] Comment on above: Performed By: #### L IPID, TSH, CMP #### [facility] [address] [address] [address] Michelle Newell Anion gap [Moles/Vol] 7.3 mmol/L Normal [place] Comment on above: Performed By: #### L IPID, TSH, CMP #### [facility] [address] [address] [address] Michelle Newell AST [Catalytic activity/Vol] 19 U/L Normal 15-37 [place] Comment on above: Performed By: #### L IPID, TSH, CMP #### [facility] [address] [address] [address] Michelle Newell Bilirubin [Mass/Vol] 0.5 mg/dL Normal 0.2-1.0 [place] Comment on above: Performed By: #### L IPID, TSH, CMP #### [facility] [address] [address] [address] Michelle Newell Calcium [Mass/Vol] 8.9 mg/dL Normal 8.5-10.1 [facility] Comment on above: Performed By: #### L IPID, TSH, CMP #### [facility] [address] [place] [address] Dr. Michelle Newell Chloride [Moles/Vol] 101 mmol/L Normal 98-107 [place] Comment on above: Performed By: #### L IPID, TSH, CMP #### [facility] [address] [place] [address] Dr. Michelle Newell CO2 [Moles/Vol] 34.6 mmol/L Critically high 21.0-32.0 [place] Comment on above: Performed By: #### L IPID, TSH, CMP #### [facility] [address] [place] [address] Dr. Michelle Newell Creatinine [Mass/Vol] 0.75 mg/dL Normal 0.70-1.30 [place] Comment on above: Performed By: #### L IPID, TSH, CMP #### [facility] [address] [place] [address] Dr. Michelle Newell EGFR-AF TURKISH >60 Normal >=60 [facility] Comment on above: Performed By: #### L IPID, TSH, CMP #### [facility] [address] [place] [address] Dr. Michelle Newell EGFR-NON AF TURKISH >60 Normal >=60 [place] Comment on above: Performed By: #### L IPID, TSH, CMP #### [facility] [address] [place] [address] Dr. Michelle Newell Globulin (S) [Mass/Vol] 3.4 g/dL Normal [place] Comment on above: Performed By: #### L IPID, TSH, CMP #### [facility] [address] [place] [address] Dr. Michelle Newell Glucose [Mass/Vol] 131 mg/dL Critically high 74-106 [facility] Comment on above: Performed By: #### L IPID, TSH, CMP #### [facility] [address] [place] [address] Dr. Michelle Newell Potassium [Moles/Vol] 3.9 mmol/L Normal 3.5-5.1 [place] Comment on above: Performed By: #### L IPID, TSH, CMP #### [facility] [address] [place] [address] Dr. Michelle Newell Protein [Mass/Vol] 7.6 g/dL Normal 6.4-8.2 [facility] Comment on above: Performed By: #### L IPID, TSH, CMP #### [facility] [address] [place] [address] Dr. Michelle Newell Sodium [Moles/Vol] 139 mmol/L Normal 136-145 [facility] Comment on above: Performed By: #### L IPID, TSH, CMP #### [facility] [address] [place] [address] Dr. Michelle Newell Urea nitrogen [Mass/Vol] 11.0 mg/dL Normal 7.0-18.0 [place] Comment on above: Performed By: #### L IPID, TSH, CMP #### [facility] [address] [place] [address] Dr. Michelle Newell Urea nitrogen/Creatinine [Mass ratio] 14.7 mg/mg Normal [place] Comment on above: Performed By: #### L IPID, TSH, CMP #### [facility] [address] [place] [address] Dr. Michelle Newell TSHon 03-12-2022 TSH 4.267 uIU/mL Critically high 0.358-3.740 [facility] Comment on above: Performed By: #### L IPID, TSH, CMP #### [facility] [address] [place] [address] Dr. Michelle Newell Pathology Noteon 07-30-2021 Pathology Note [id number] .[id number]:127 Normal [facility] Outside Colonoscopyon 2021 Outside Colonoscopy [id number]. 00CD:127 Normal [facility] Reminderson 07-29-2021 Reminders - From: Etelvina Saxena LPN To: N - Clinical; Sent: 07/29/2021 09:57:59 EDT Show up: 06/28/2031 07:00:00 EST Subject: colonoscopy recall Due Date/Time: 07/29/2031 07:00:00 EDT Reminder/Recall Patient is due for screening colonoscopy 07/29/2031. Normal [facility] Lab Reportson 07-26-2021 Lab Reports [id number] .[id number]:127 Normal [facility] Covid-19 PCR (CVDTB)on 06-30 SARS-CoV-2 (COVID-19) RNA FRANCE+probe Ql (Unsp spec) Not detected Normal NOT DETECTED [facility] Comment on above: Result Comment: When diagnostic testing is negative, the possibility of a false negative should be considered in the context of a patient's recent exposures and the presence of clinical signs and symptoms consistent with SARS-CoV-2. This test is not yet approved or cleared by the [place] Food and Drug Administration (FDA). This test was developed by [employer] [place], [place]. The performance characteristics of this test were validated by [facility]. The results are not intended to be used as the sole means for clinical diagnosis or patient management decisions. [facility] is authorized under Clinical Laboratory Improvement [...] for this test is supported by the [place] of Health and Human Service's declaration that [...] longer be used). Performed By: #### [facility] #### [facility] [address] [place] [address] Dr. Michelle Newell Consent for Procedure/Surger yon 07-15-2021 Consent for Procedure/Surgery [id number] .[id number]:127 Normal [facility] Physician Referralon 022 Physician Referral [id number] .[id number]:127 Normal [facility] Vital Signs Date Time Vital Sign Value Performing Clinician Facility 05-10-2024 13:01-0500 Body height 172.7 cm Cordelia7Roadznick DO Work Phone: [facility] 05-10-2024 13:01-0500 Body mass index (BMI) [Ratio] 29.5 kg/m2 Cordelia Petznick DO Work Phone: [facility] 05-10-2024 13:01-0500 Body temperature 98.6 [degF] Cordelia Petznick DO Work Phone: [facility] 05-10-2024 13:01-0500 Body weight 88 kg Cordelia Petznick DO Work Phone: [facility] 05-10-2024 13:01-0500 Diastolic blood pressure 72 mm[Hg] Cordelia Petznick DO Work Phone: [facility] 05-10-2024 13:01-0500 Heart rate 72 /min Cordelia Petznick DO Work Phone: [facility] 05-10-2024 13:01-0500 SaO2% (BldA) [Mass fraction] 95 % Cordelia Petznick DO Work Phone: [facility] [employer] 05-10-2024 13:01-0500 Systolic blood pressure 124 mm[Hg] Cordelia Petznick DO Work Phone: [facility] 02-21-2024 14:35-0400 Body height 172.72 cm [facility] 02-21-2024 14:35-0400 Body mass index (BMI) [Ratio] 28.4 kg/m2 [facility] 02-21-2024 14:35-0400 Body weight 84.93 kg [facility] 02-21-2024 14:35-0400 Diastolic blood pressure 83 mm[Hg] [facility] 02-21-2024 14:35-0400 Heart rate 80 /min [facility] 02-21-2024 14:35-0400 Respiratory rate 12 /min [facility] 02-21-2024 14:35-0400 Systolic blood pressure 150 mm[Hg] [facility] 01-05-2024 13:00-0400 Body height 172.7 cm Cordelia Petznick DO Work Phone: [facility] 01-05-2024 13:00-0400 Body mass index (BMI) [Ratio] 29.35 kg/m2 Cordelia Petznick DO Work Phone: [facility] 01-05-2024 13:00-0400 Body temperature 98.29 [degF] Cordelia Petznick DO Work Phone: [facility] 01-05-2024 13:00-0400 Body weight 87.54 kg Cordelia Petznick DO Work Phone: [facility] 01-05-2024 13:00-0400 Diastolic blood pressure 72 mm[Hg] Cordelia Petznick DO Work Phone: [facility] 01-05-2024 13:00-0400 Heart rate 86 /min Cordelia Petznick DO Work Phone: [facility] 01-05-2024 13:00-0400 SaO2% (BldA) [Mass fraction] 94 % Cordelia Petznick DO Work Phone: [facility] 01-05-2024 13:00-0400 Systolic blood pressure 126 mm[Hg] Cordelia Petznick DO Work Phone: [facility] 10-06-2023 10:24-0400 Body height 172.72 cm [facility] 10-06-2023 10:24-0400 Body mass index (BMI) [Ratio] 29 kg/m2 [facility] 10-06-2023 10:24-0400 Body weight 86.8 kg [facility] 10-06-2023 10:24-0400 Diastolic blood pressure 80 mm[Hg] [facility] 10-06-2023 10:24-0400 Heart rate 75 /min [facility] 10-06-2023 10:24-0400 Respiratory rate 12 /min [facility] 10-06-2023 10:24-0400 Systolic blood pressure 130 mm[Hg] [facility] 09-30-2022 10:00-0400 Body height 172.72 cm Stalin Ball Other [facility] Other 09-30-2022 10:00-0400 Body mass index (BMI) [Ratio] 28.67 kg/m2 Stalin Ball Other [employer] [facility] Other 09-30-2022 10:00-0400 Body weight 85.55 kg Stalin Ball Other [employer] Other 09-30-2022 10:00-0400 Diastolic blood pressure 80 mm[Hg] Stalin Ball Other [employer] Other 09-30-2022 10:00-0400 Respiratory rate 12 /min Stalin Ball Other [employer] Other 09-30-2022 10:00-0400 Systolic blood pressure 135 mm[Hg] Stalin Ball Other [employer] Other Encounters Encounter Date Encounter Type Care Provider Facility Start: 05-10-2024 End: 05-10-2024 Office outpatient visit 25 minutes Cordelia Levineick DO Work Phone: [facility] Comment on above: Hypoglycemia due to type 1 diabetes mellitus ([facility]/HCC) (Primary Dx); 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 (CMS/HCC) Start: 05-10-2024 End: 05-10-2024 ambulatory CORDELIA COOLEYZNICK Not Available Start: 02-21-2024 End: 02-21-2024 ambulatory [facility] Work Phone: Start: 02-21-2024 End: 02-21-2024 Patient encounter procedure [facility] Work Phone: Start: 01-05-2024 End: 01-05-2024 Office outpatient visit 25 minutes Cordelia Mosqueda Petznick DO Work Phone: [facility] [address] Comment on above: Hypoglycemia due to type 1 diabetes mellitus (CMS/HCC) (Primary Dx); 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 Work Phone: Start: 10-11-2023 End: 10-11-2023 ambulatory AP CABRERA Not Available Start: 10-06-2023 End: 10-06-2023 ambulatory [facility] Work Phone: Start: 10-06-2023 End: 10-06-2023 Encounter for general adult medical examination without abnormal findings [facility] Start: 10-06-2023 End: 10-06-2023 Patient encounter procedure [facility] Work Phone: Start: 09-29-2023 Non-patient / Non-[facility] Work Phone: Start: 09-01-2023 End: 09-01-2023 ambulatory CORDELIA M PETZNICK Not Available Start: 01-18-2023 End: 01-18-2023 ambulatory Stalin Borjas Other [employer] Other Start: 01-18-2023 Telephone encounter Stalin Borjas [facility] Start: 10-24-2022 End: 10-24-2022 ambulatory Stalin Borjas Other [employer] Other Start: 10-24-2022 Telephone encounter Stalin Borjas FP [facility] Start: 10-18-2022 End: 10-18-2022 ambulatory Stalin Borjas Other [employer] Other Start: 10-18-2022 Telephone encounter Stalin GOMES [facility] Start: 09-30-2022 End: 09-30-2022 ambulatory Stalin Borjas Other [employer] Other Start: 09-30-2022 Encounter for genera l adult medical examination without abnormal findings Stalin Borjas [facility] Start: 09-30-2022 Periodic preventive med est patient 40-64yrs Stalin Borjas [facility] Start: 03-15-2022 Encounter for genera l adult medical examination without abnormal findings DR CORDELIA JOHNSON [place] Start: 03-12-2022 End: 03-13-[address] CORDELIA JOHNSON Facility:[facility] Start: 03-12-2022 End: 03-13-2022 Encounter for general adult medical examination without abnormal findings DR CORDELIA JOHNSON Facility:[facility] Start: 09-21-2021 End: 09-21-2021 ambulatory Ubaldo Burgos Other [employer] Other Start: 09-21-2021 Office outpatient vi sit 15 minutes Ubaldo Burgos [facility] Start: 08-10-2021 End: 09-24-2021 ambulatory UBALDO BURGOS Facility:[facility] Start: 07-28-2021 Encounter for prepro cedural laboratory examination DR ELIZ CHICAS [place] Start: 07-28-2021 End: 07-28-[address] ELIZ CHICAS Facility:[facility] Start: 07-27-2021 End: 07-28-2021 ambulatory UBALDO AUBREY [employer] Other Start: 07-27-2021 Office outpatient ne w 30 minutes Ubaldo Aubrey [facility] [place] [facility] Start: 07-24-2021 End: 07-25-[address] ELIZ CHICAS Facility:[facility] Start: 07-24-2021 End: 07-25-2021 Encounter for preprocedural laboratory examination DR ELIZ CHICAS Facility:[facility] Start: 07-03-[address] STALIN BORJAS Facili ty:[facility] Start: 06-29-2021 Encounter for genera l adult medical examination without abnormal findings Stalin Borjas Other [employer] Other Procedures Date Procedure Procedure Detail Performing Clinician Start: 05-10-2024 Hemoglobin glycosyla feng a1c Cordelia Johnson DO Work Phone: Start: 01-05-2024 Hemoglobin glycosyla feng a1c Cordelia Johnson DO Work Phone: Depression screening Dank Borjas Other Plan of Treatment Date Care Activity Detail Author Start: 03-12-2025 Glaucoma screening Diabetes: Retinopathy Screening [facility] Start: 08-09-2024 End: 08-09-2024 Patient encounter procedure 08/09/2024 3:15 PM EDT Office Visit [facility] [address] [place] [address] Cordelia Johnson, DO [address] [place], [place] [id number] [facility] Start: 08-08-2024 Hemoglobin A1c measurement Diabetes: Hemoglobin A1C [facility] Start: 05-10-2024 End: 05-10-2024 Patient encounter procedure 05/10/2024 1:00 PM EST Office Visit [facility] [address] [place] [address] Cordelia Johnson, DO [address] [place], [place] [id number] [facility] Start: 04-05-2024 Hemoglobin A1c measurement Diabetes: Hemoglobin A1C [facility] Start: 01-23-2024 End: 01-23-2024 Patient encounter procedure 01/23/2024 12:45 PM EDT Office Visit [facility] [address] [place] [id number] Ap Cabrera, DO [address] [place] [address] [facility] [address] Start: 01-19-2024 Glaucoma screening Diabetes: Retinopathy Screening [facility] Start: 12-31-2023 Influenza vaccination Influenza Vaccine (#1) [facility] Start: 03-12-2023 Urine screening for protein Diabetes: Urine Protein Screening [facility] Start: 1975 Screening for malignant neoplasm of colon [facility] Thyroperoxidase Ab [Units/volume] in Serum or Plasma [facility] Immunizations Immunization Date Immunization Notes Care Provider Fa cility 04-13-2021 influenza, injectabl e, quadrivalent, contains preservative Stalin Borjas Other [facility] 04-13-2021 influenza, injectabl e, quadrivalent, preservative free [facility] 04-13-2021 influenza virus vaccine, unspecified formulation Cordelia Johnson DO Work Phone: [facility] 02-24-2021 COVID-19 Vaccine Moderna - Documentation Purposes Only Stalin Borjas Other [facility] 02-23-2021 Moderna SARS-CoV-2 Booster Vaccination Cordelia Johnson DO Work Phone: [facility] 08-09-2020 COVID-19 Vaccine Moderna - Documentation Purposes Only Stalin Borjas Other [facility] 07-13-2020 COVID-19 Vaccine Moderna - Documentation Purposes Only Stalin Borjas Other [facility] Payers Date Payer Category Payer Blue Cross Blue Shield BCBS [id number] 2022 Unknown BCBS BCBS [id number] 2022-Present [phone] [address] [place] [address] [id number] 2022 Blue Cross Blue Shield [id number] 2019 Unknown [id number] 1973 Unknown [id number]. [id number] 1973 Unknown [id number]. 593 1973 Unknown [id number] [id number]. 593 1973 Unknown [id number] .[id number]. 593 1973 Unknown [id number] [id number]. 593 1973 Unknown [id number] [id number]. 593 1973 Unknown [id number]. 1259 1973 Unknown [id number] 9 1973 Unknown [id number]. 9 1973 Unknown [id number] 1259 1959 Private Health Insurance [id number] 1961 Self-pay Social History Date Type Detail Facility Start: 12-19-2022 End: 05-10-2024 Sex Assigned At [facility] Start: 09-21-2021 End: 12-23-2022 Tobacco smoking status [facility] Ex-smoker (finding) [facility] Start: 1975 Sex Assigned At Male F [facility] History of tobacco use Current smoker [facility] History of tobacco use Cigarette Smoker [facility] Start: 12-23-2022 Tobacco use and exposure Smokeless tobacco non-user [facility] Start: 01-05-2024 End: 05-10-2024 Alcoholic beverage intake Current drinker of alcohol (finding) [facility] Start: 12-19-2022 End: 05-10-2024 History of Social function [facility] Within [...] - these days [OSQ] Not at all [facility] (I/We) worried wheth er (my/our) food would run out before (I/we) got money to buy more. Never true [facility] Start: 01-18-2023 Alcohol Comment coffee 2-3 cup s per day [facility] Start: 1975 Sex assigned at Not on file [facility] Medical Equipment Procedure Code Equipment Code Equipment Origin al Text Equipment Identifier Dates [id number] Start: 09-01-2023 End: 08-31-2024 Clinical Notes 07-14-2021 to 05-10-2024 Cordelia Johnson, DO - 05/10/2024 2:00 PM Fernando Johnson, DO - 05/10/2024 1:00 PM Fernando Johnson, DO - 01/05/2024 3:44 PM Yony Panda Willow, DO - 01/05/2024 1:00 PM EDT Note Date & Type Note Facility 05-10-2024 History of Presen t illness Narrative Associated [...] they have any problems or questions. Gregorio Mosqueda Venu control is stable overall. , The patient is wearing their cgm on a daily basis and making decisions in regards to adjusting insulin daily as well for at least the last 60 days , Instructions given today include: Pump instructions and Dietary education. Will tighten his carb ratio in the afternoon. Encouraged him to get into a regular exercise routine with the goal of 150 min moderate intensity exercise weekly. This should help with mood, energy, stress relief, and better bg control in the afternoon. Images from the original note were not included. Gregorio Lea is a 48 y.o. male presents with chief complaint of Diabetes HPI: Diabetes Mellitus Follow-up: Gregorio Lea is here for follow-up evaluation of diabetes mellitus. The initial diagnosis of diabetes was made in 1985 Medication tried in the past: Lyumjev irritated skin Diabetes complications: none He has been checking his blood glucose with a omnipod 5 insulin pump-linked in glooko- and Dexcom G6 CGM on a daily basis. Occasionally drops overnight. Tends to rise in the afternoon/eveing when he gets home from work. He is not active after work and takes a nap on most days due to being so tired. Last A1c: 7.2 (01/05/24) Last eye exam: 03/12/2024 Current concerns include: Bg levels: similar to last visit. Diet: counting carbs Drinks: water, diet pop, coffee sugar substitute, light beers Exercise: none Hypoglycemia: once a week. After a meal may be overcorrecting. Happens after he changes pods. Leothyroxine 25 mcg was added this week by PCP SUBJECTIVE: PROBLEM LIST SOCIAL ALLERGIES: Patient Active [...] use: Never No Known Allergies Synopsis Smart[facility] 05/10/2024 03/12/2024 00:00 Antidiabetic medications Glucagon 3 mg Once PRN NA Insulin Aspart (w/Niacinamide) INJECT A MAXIMUM OF 70 UNITS SUBCUTANEOUSLY EVERY DAY (100 UNIT/ML SOLN) INJECT A MAXIMUM OF 70 UNITS SUBCUTANEOUSLY EVERY DAY (100 UNIT/ML SOLN) Insulin Aspart Per pump (max daily 70 units) (100 UNIT/ML SOLN)-Discontinued Per pump (max daily 70 units) (100 UNIT/ML SOLN) Insulin Degludec Inject under the skin at bedtime 36 units if pump fails (100 UNIT/ML SOPN) Labs MHPT A1C 7.4 Outpatient prescription Medication marked as long-term Patient-reported The 10-year ASCVD risk score (José Miguel HAMM, et al., 2019) is: 3.1%* Values used to calculate the score: Age: 48 years Sex: Male Is Non- : No Diabetic: Yes Tobacco smoker: No Systolic Blood Pressure: 124 mmHg Is BP treated: No HDL Cholesterol: 70 mg/dL* Total Cholesterol: 155 mg/dL* * - Cholesterol units were assumed for this score calculation REVIEW OF SYMPTOMS: Review of Systems Constitutional: Positive for fatigue. Negative for appetite change and unexpected weight change. Eyes: Negative for visual disturbance. Respiratory: Negative for cough, shortness of breath and wheezing. Cardiovascular: Negative for chest pain, palpitations and leg swelling. Neurological: Negative for numbness. Endocrine: Negative for polydipsia, polyphagia and polyuria. OBJECTIVE: 05/10/2024 1:01 PM 01/05/2024 1:00 PM 10/11/2023 1:37 PM Vitals BMI 29.5 kg/m2 29.35 kg/m2 29.04 kg/m2 Systolic 124 126 130 Diastolic 72 72 78 Heart Rate 72 86 80 Temp 98.6 F 98.3 F Resp 16 Height (in) 5' 8 5' 8 5' 8 Weight (lb) 194 193 191 Visit Report Report Report Report Physical Exam [...] have any problems or questions. Gregorio Lea control is stable overall. , The patient is wearing their cgm on a daily basis and making decisions in regards to adjusting insulin daily as well for at least the last 60 days , Instructions given today include: Pump instructions and Dietary education. Will tighten his carb ratio in the afternoon. Encouraged him to get into a regular exercise routine with the goal of 150 min moderate intensity exercise weekly. This should help with mood, energy, stress relief, and better bg control in the afternoon. Relevant Medications glucagon (Baqsimi One Pack) 3 MG/DOSE nasal powder Insulin Disposable Pump (Omnipod 5 [id number] Pods Gen 5) misc Other Relevant Orders POCT glycosylated hemoglobin (Hb A1C) docked device (Completed) Follow up in about 4 months (around 09/07/2024) for Recheck. Patient's Medications New Prescriptions GLUCAGON (BAQSIMI ONE PACK) 3 MG/DOSE NASAL POWDER Administer 3 mg into affected nostril(s) 1 (one) time if needed for low blood sugar Previous Medications ATORVASTATIN (LIPITOR) 20 MG TABLET Take 20 mg by mouth in the morning. CONTINUOUS GLUCOSE SENSOR (DEXCOM G6 SENSOR) MISC 1 each Every 10 (ten) days CONTINUOUS GLUCOSE TRANSMITTER (DEXCOM G6 TRANSMITTER) MISC Use as instructed every 90 days FIASP 100 UNIT/ML SOLUTION INJECT A MAXIMUM OF 70 UNITS SUBCUTANEOUSLY EVERY DAY FREESTYLE LITE TEST STRIP Use as instructed INSULIN DEGLUDEC (TRESIBA FLEXTOUCH) 100 UNIT/ML INJECTION Inject under the skin at bedtime 36 units if pump fails LEVOTHYROXINE (SYNTHROID, LEVOXYL) 25 MCG TABLET Take 25 mcg by mouth in the morning. Take before meals. VENLAFAXINE XR (EFFEXOR XR) 75 MG 24 HR CAPSULE Take 75 mg by mouth Daily Modified Medications Modified Medication Previous Medication INSULIN DISPOSABLE PUMP (OMNIPOD 5 [id number] PODS GEN 5) MISC Insulin Disposable Pump (Omnipod 5 [id number] Pods Gen 5) misc Inject 1 each under the skin every 3 (three) days Basal 12A 1.3, 6P 2.0 ICR: 12A 10, 10A 12, 3P 7, ISF: 65, target: 12 Inject 1 each under the skin every 3 (three) days Basal 12A 1.3, 6P 2.0 ICR: 12A 10, 10A 12, 3P 9, ISF: 65, target: 12 Discontinued Medications GLUCOSE BLOOD TEST STRIP every 6 (six) hours. INSULIN ASPART (NOVOLOG) 100 UNIT/ML INJECTION Per pump (max daily 70 units) I have reviewed and reconciled the history and medication list with the patient today. documented in this encounter [facility] 01-05-2024 History of Presen t illness Narrative [...] they have any problems or questions. Gregorio Panda Venu is doing very well and encouraged on [...] the patient today. 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 (ICD-10 - E10.3553) [facility] Other 06-26-2023 Evaluation note* Encounter Date Diagnosis Assessment Notes Treatment Notes Treatment Clinical Notes Sep, AKIN (obstructive sleep apnea) (ICD-10 - G47.33) AHI 18 Psat 79% [facility] Other 06-20-2023 Evaluation note* Encounter Date Diagnosis Assessment Notes Treatment Notes Treatment Clinical Notes Sep, Allergic contact dermatitis due to plants, except food (ICD-10 - L23.7) [facility] Other 06-02-2023 Evaluation note* Encounter Date Diagnosis [...] will send referral for home sleep study [facility] Other 05-24-2022 Evaluation note* Encounter Date Diagnosis [...] capsulitis of left shoulder (ICD-10 - M75.02) [facility] Other 03-30-2022 NoteOPERATIVE NOTE PREOPERATIVE DIAGNOSIS: Colorectal [...] in 10 years. CC: Stalin Borjas D.O. [facility] Signed and Approved by: DR ELIZ CHICAS . 07/30/2021 05:17:00[place]03-30-2022 NoteOPERATIVE NOTE PREOPERATIVE DIAGNOSIS: Colorectal screening. POSTOPERATIVE [...] 10 years. CC: Stalin Borjas D.O. : [facility] Signed and Approved by: DR ELIZ CHICAS . 07/30/2021 05:17:00[place]03-29-2022 NotePROCEDURE: XR SHOULDER MACRINA 2V or > [...] Electronically authenticated by: SAY VILLASENOR Date: 2021-07-27 17:23[place]03-29-2022 Evaluation note* Encounter Date Diagnosis Assessment Notes [...] motion exercise. Formal order of physical therapy. [facility] Other 03-16-2022 NoteChief Complaint consultation for colonoscopy [...] Date Status influenza virus vaccine, inactivated 01/2021 [facility] Comment on above:Result Comment: Electronically Signed By: Eliz CHICAS MD\Date and Time Signed: 07/14/21 17:02 EDTEvaluation note* Diagnosis Onset Date Resolution Status Benign prostatic hyperplasia with lower urinary tract symptoms acute AKIN (obstructive sleep apnea) acute Overweight acute Type 1 diabetes mellitus with hyperglycemia acute Screening PSA (prostate specific antigen) noneactive Wellness examination noneact geo [facility] Work Phone: Evaluation note* Diagnosis Onset Date Resolution Status Fatigue acute Hypothyroid acute AKIN (obstructive sleep apnea) acute Overweight acute [facility] Work Phone: Evaluation note* Diagnosis Hypoglycemia due to type 1 diabetes mellitus (CMS/HCC)- Primary 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 (CMS/HCC) [facility] Diagnosis Type 1 diabetes mellitus without complication (CMS/HCC)- Primary Type I (juvenile type) diabetes mellitus without mention of complication, not stated as uncontrolled Hypoglycemia due to type 1 diabetes mellitus (CMS/HCC)- Primary 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 (CMS/HCC) 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 (CMS/HCC)- Primary Hypoglycemia due to type 1 diabetes mellitus (CMS/HCC) Hypoglycemia due to type 1 diabetes mellitus (CMS/HCC)- Primary 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 (CMS/HCC) Hypoglycemia due to type 1 diabetes mellitus (CMS/HCC)- Primary 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 (CMS/HCC) [facility] N[facility]ative - Reported* Type Description Date Medical History diabetes mallitus Surgical History carpal tunnel release [facility] Other History general Narrative - Reported* Type Description Date Medical History diabetes mallitus Medical History Pure hypercholesterolemia Medical History Adhesive capsulitis of right marsha ulder Medical History HAILEY (generalized anxiety disorde r) Surgical History carpal tunnel release- BILATERA L 2015 Surgical History COLONOSCOPY 2021 Hospitalization History SEE SURGICAL HX [facility] Other History general Narrative - Reported* Type Description Date Medical History diabetes mallitus Medical History Pure hypercholesterolemia Medical History Adhesive capsulitis of right marsha ulder Medical History HAILEY (generalized anxiety disorde r) Medical History AKIN Surgical History carpal tunnel release- BILATERA L 2014 Surgical History COLONOSCOPY 2021 Hospitalization History SEE SURGICAL HX [facility] Other History general Narrative - Reported* Type Description Date Medical History diabetes mallitus Medical History Pure hypercholesterolemia Medical History Adhesive capsulitis of right marsha ulder Medical History HAILEY (generalized anxiety disorde r) Medical History AKIN Medical History Proliferative diabetic retinopat hy Surgical History carpal tunnel release- BILATERA L 2014 Surgical History COLONOSCOPY 2021 Hospitalization History SEE SURGICAL HX [facility] Other Summary Purpose Family History No Family History Records FoundNo Family History Records FoundNo Family History Records Found Advance Directives No Advanced Directives Records Found Advance Directive Response Recorded Date/ Time Advance Directives No October 05 9:51am Chief Complaint and Reason for Visit Chief Complaint wellness Reason for Visit Benign prostatic hyp erplasia with lower urinary tract symptoms AKNI (obstructive sleep apnea) Overweight Type 1 diabetes mellitus with hyperglycemia Screening PSA (prostate specific antigen) Wellness examination Chief Complaint Med f/u Reason for Visit Fatigue Hypothyroid AKIN (obstructive sleep apnea) Overweight Additional Source Comments (unrecognized sect ion and content) No Status Records FoundNo Status Records FoundNo Status Records Found INFORMATION SOURCE (unrecogn ized section and content) DATE CREATED AUTHOR 08/22/2021 Simon Yin [facility] DATE CREATED AUTHOR AUTHOR'S ORGANIZ ATION 03/23/2022 [facility] DATE CREATED AUTHOR AUTHOR'S ORGANIZ ATION 05/15/2024 [facility] EPIC REASON FOR VISIT (unrecogniz ed section and content) Reason Comments Diabetes Care Teams (unrecognized sec tion and content) Team Status: Active Member Role Status Dates Stalin Borjas , Primary Care Provider Active Team Status: Active [...] February 21, 2024 End: February 21, 2024 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 [facility] [employer] [facility]. provides no warranty or guarantee of the accuracy or completeness of information in this document.
[2024-07-12 08:13] LABS: Basophils Absolute Auto 0.1 10^3/uL (0.0-0.1); Basophils Percent Auto 0.9 % (0.2-2.0); Eosinophils Absolute Auto 0.2 10^3/uL (0.0-0.7); Eosinophils Percent Auto 4.2 % (0.9-7.0); Hematocrit 42.3 % (42.0-54.0); Hemoglobin 14.1 g/dL (14.0-18.0); Immature Granulocytes Abs Auto 0.02 10^3/uL (0.00-0.03); Immature Granulocytes Pct Auto 0.4 % (0.0-0.5); Lymphocytes Absolute Auto 1.1 10^3/uL (1.2-3.8); Lymphocytes Percent Auto 20.7 % (20.5-60.0); Mean Corpuscular HGB Conc 33.3 g/dL (29.9-35.2); Mean Corpuscular Hemoglobin 30.9 pg (25.9-34.0); Mean Corpuscular Volume 92.8 fL (80.0-94.0); Mean Platelet Volume 10.1 fL (9.5-13.5); Monocytes Absolute Auto 0.7 10^3/uL (0.3-0.8); Monocytes Percent Auto 12.3 % (1.7-12.0); Neutrophils Absolute Auto 3.4 10^3/uL (1.4-6.5); Neutrophils Percent Auto 61.5 % (43.0-75.0); Platelet Count 287 10^3/uL (150-450); Red Blood Count 4.56 10^6/uL (4.70-6.10); Red Cell Distribution Width 12.2 % (11.0-15.0); White Blood Count 5.5 10^3/uL (4.0-11.0)
[2024-07-12 09:58] LABS: Erythrocyte Sedimentation Rate 6 mm/hr (<=20)
[2024-07-12 11:24] LABS: Free T4 0.86 ng/dL (0.76-1.46)
[2024-07-12 11:35] LABS: Alanine Aminotransferase 39 U/L (16-63); Albumin Globulin Ratio 1.2; Albumin Level 3.8 g/dL (3.4-5.0); Alkaline Phosphatase 134 U/L (46-116); Anion Gap 10.3; Aspartate Amino Transferase 25 U/L (15-37); BUN Creatinine Ratio 10.6; Bilirubin Total 0.5 mg/dL (0.2-1.0); C Reactive Protein <0.50 mg/dL (<=0.50); Calcium 8.6 mg/dL (8.5-10.1); Carbon Dioxide 29.9 mmol/L (21.0-32.0); Chloride 105 mmol/L (98-107); Estimated GFR (African America >60 (>=60 mL/min/1.73m^2); Estimated GFR (Non-African Ame >60 (>=60 mL/min/1.73m^2); Globulin 3.2 g/dL; Glucose 124 mg/dL (74-106); Potassium 4.2 mmol/L (3.5-5.1); Sodium 141 mmol/L (136-145); Thyroid Stimulating Hormone 3.012 uIU/mL (0.358-3.740)
[2024-07-13 05:07] LABS: Testosterone 412 ng/dL (264-916)
== END 2024-07-12 07:43 | disposition home or self-care (01) ==
LOC: LAB 07:45
PROVIDERS: PCP Internal Medicine; Visit Provider Internal Medicine
DX: R53.83 Other fatigue (principal); E06.3 Autoimmune thyroiditis; E10.65 Type 1 diabetes mellitus with hyperglycemia; R74.8 Abnormal levels of other serum enzymes
CPT/HCPCS: 36415; 80053; 84403; 84439; 84443; 85025; 85652; 86140

== ENCOUNTER 2024-07-26 06:57 | Outpatient (OUT) | payer BC, SELFPAY ==
--- OUTSIDE RECORDS SUMMARY | 2024-07-26 07:00 | XMS_ITS | CCD ---
Author Organization [facility] Care Team Providers Care Health Occupations Instructor Name Role Phone Aubrey Ubaldo Unavailable ERIKA, [...] Stalin Borjas Unavailable Cordelia Johnson DO Unavailable [phone] Stalin Borjas MD Primary Care Provider CORDELIA JOHNSON Attending Unavailable STALIN BORJAS Referring Unavailable AP CABRERA Attending Unavailable CORDELIA JOHNSON Attending Unavailable STALIN BORJAS Referring Unavailable CORDELIA JOHNSON Attending Unavailable Medications Current Medications Medication Drug Class(es) Dates Sig (Normalized) Sig (Original) atorvastatin 20 mg oral tablet (10 sources) HMG-CoA Reductase Inhibitor Start: 4 End: 4 take 1 tablet by mouth once daily Atorvastatin 20 mg tablet Active 20 MG PO Daily 90 90 October 06, 2023 10:43am Continuous Glucose Sensor (Dexcom G6 Sensor) [facility] (4 sources) Start: 4 End: 5 Continuous [...] Antibacterial, Polymyxin-class Antibacterial, Corticosteroid Start: 4 Cortisporin [id number] 4 drops into affected ear Otic Three times a day for 7 days Jun, Active Insulin Aspart (B3) Pump Cart (3 sources) Start: 4 Insulin Aspart (B3) Pump [...] fails Active Insulin Disposable Pump (Omnipod 5 [id number] Pods Gen 5) misc (4 sources) Start: 5 Insulin Disposable Pump (Omnipod 5 [id number] Pods Gen 5) misc Indications: 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 (CMS/HCC) Inject 1 each under the skin every 3 (three) days Basal 12A 1.3, 6P 2.0 ICR: 12A 10, 10A 12, 3P 7, ISF: 65, target: 12 30 each 05/10/2024 Active Start: 05-09-2024 End: 05-10-2024 Insulin Disposable Pump (Omn ipod 5 [id number] Pods Gen 5) misc Indications: Type 1 [...] adjustment) levothyroxine sodium 0.025 mg oral tablet (3 sources) l-Thyroxine Start: 04-26-2024 take 1 tablet by mouth once daily Levothyroxine 25 mcg tablet Active 25 MCG PO Daily 90 April 26, 2024 1:00am Take daily on empty stomach predniSONE 20 mg oral tablet (3 sources) Start: 10-18-2022 predniSONE 20 MG 1 tablet Orally tid w/ food x 3 days, then bid w/ food x 3 days, then qd w/ food x 3 days for 9 days 20 Ray, 2023 Active 24 hr venlafaxine 150 mg extended release oral capsule (11 sources) Serotonin and Norepinephrine Reuptake Inhibitor Start: 04-30-2024 take 1 capsule by mouth once daily in the morning Venlafaxine 150 mg capsule,extended release 24hr Active 0 .ROUTE .COMPLEX April 30, 2024 3:38pm TAKE ONE CAPSULE BY MOUTH EVERY MORNING FOR 90 DAYS. START AFTER 7 DAYS OF 75MG STRENGTH. Start: 12-25-2023 take 1 capsule by mo ut once daily in the morning Venlafaxine 75 mg capsule,extended release 24hr Active 75 MG PO Every morning 11 04December 25, 2023 12:00am Start after stopping Escitalopram Start: 12-25-2023 End: 04-30-2024 take 1 capsule by mouth once daily in the morning Venlafaxine 150 mg capsule,extended release 24hr Discontinued 150 MG PO Every morning December 25, 2023 8:44pm April 30, 2024 3:39pm Start after completing 7 days at dose of 75mg q am (omit instructions after initial prescription) Completed/Discontinued Medications Medication Drug Class(es) Dates Sig (Normalized) Sig (Original) escitalopram 20 mg oral tablet (8 sources) Serotonin Reuptake Inhibitor Start: 10-06-2023 End: 12-25-2023 take 1 tablet by mouth once daily Escitalopram Oxalate (Lexapro) 20 mg tablet Discontinued 20 MG PO Daily October 06, 2023 10:43am December 25, 2023 8:41pm End: 01-05-2024 escitalopram (Lexapro) 10 MG tablet 1 (one) time each day at the same time. 01/05/2024 Discontinued (Therapy completed) Insulin Aspart U-100 (Novolog U-100 Insulin Aspart) 100 unit/mL solution (3 sources) Start: 10-06-2023 End: 10-06-2023 Insulin Aspart [...] Onset: 10-06-2015 12-23-2022 Chronic Hyperplasia of prostate (8 sources) Benign prostatic hyperplasia; Translations: [Benign prostatic hyperplasia with lower urinary tract symptoms] Onset: 01-05-2024 10-04-2023 Chronic Malaise and fatigue (4 sources) Fatigue; Translations: [Other fatigue] 02-21-2024 Episodic Mood disorders (2 sources) Major depressive disorder; Translations: [Major depressive disorder, single episode, unspecified] 07-17-2024 Chronic Other connective tissue disease (4 sources) [...] Translations: [Other otitis externa, bilateral] Chronic Other liver diseases (1 source) Alkaline phosphatase raised; Translations: [Abnormal levels of other serum enzymes] 07-09-2024 Episodic Other nutritional; endocrine; and metabolic disorders (4 sources) Overweight; Translations: [Overweight] Episodic Other nutritional; endocrine; and metabolic disorders (3 sources) Overweight; Translations: [Overweight] 10-06-2023 Episodic Other screening for suspected conditions (not mental disorders or infectious disease) (7 sources) Encounter for screening for malignant neoplasm of colon; Translations: [Encounter for screening for malignant neoplasm of prostate] Onset: 07-28-2021 Episodic Residual codes; unclassified (9 sources) Obstructive sleep apnea syndrome; Translations: [Obstructive sleep apnea (adult) (pediatric)] Onset: 01-05-2024 10-04-2023 Chronic Residual codes; unclassified (4 sources) Obstructive sleep apnea (adult) (pediatric); Translations: [Obstructive sleep apnea (adult)(pediatric)] Chronic Thyroid disorders (4 sources) Hypothyroidism; Translations: [Hypothyroidism, unspecified] 02-19-2024 Chronic Unclassified (1 source) CONTACT W/AND (SUSP) EXPOS COVID-19; Translations: [CONTACT W/AND (SUSP) EXPOS COVID-19] Onset: 07-28-2021 Past or Other Problems Problem Classification Problem Date Documented Date Episodic/Chronic Noninfectious gastroenteritis (1 source) Noninfective gastroenteritis and colitis, unspecified; Translations: [NONINFECTIVE GE AND COLITIS UNS] Onset: 08-05-2021 Episodic Other aftercare (1 source) Other intermediate frame tender (current) drug therapy; Translations: [OTH MCFP CURRENT DRUG THERAPY] Onset: 08-05-2021 Episodic Other [...] Range Facility Basophils Auto (Bld) [#/Vol] on 07-12-2024 Basophils (Bld) [#/Vol] Automated basophil count 0.0-0.1 [facility] Basophils/100 WBC Auto (Bld) on 07-12-2024 Basophils/100 WBC (Bld) Automated basophil % 0.2-2.0 [facility] Eosinophils/100 WBC Auto (Bl d)on 07-12-2024 Eosinophils/100 WBC (Bld) Automated eosinophil % 0.9-7.0 [facility] Erythrocyte distribution wid th Auto (RBC) [Ratio]on 07-12-2024 Erythrocyte distribution width (RBC) [Ratio] Erythrocyte distribution width [Ratio] by Automated count 11.0-15.0 [facility] Estimated glomerular filtrat ion rate (GFR) non- Americanon 07-12-2024 GFR/1.73 sq M.predicted among non-blacks MDRD (S/P/Bld) [Vol rate/Area] Estimated glomerular filtration rate (GFR) non- >=60 mL/min/1.73m 2 [facility] Globulin Calc (S) [Mass/Vol] on 07-12-2024 Globulin (S) [Mass/Vol] Serum globulin measurement by calculation (mass/volume) [facility] Hematocrit Auto (Bld) [Volum e fraction]on 07-12-2024 Hematocrit (Bld) [Volume fraction] Hematocrit [Volume Fraction] of Blood by Automated count 42.0-54.0 [facility] Hemoglobin [Mass/volume] in Bloodon 07-12-2024 Hemoglobin (Bld) [Mass/Vol] Hemoglobin [Mass/volume] in Blood 14.0-18.0 [facility] Laboratory - Chemistry and C hemistry - challengeon 07-12-2024 Albumin [Mass/Vol] 3.8 g/dL 3.4-5.0 [facility] ALP [Catalytic activity/Vol] 134 U/L High 46-116 [facility] ALT [Catalytic activity/Vol] 39 U/L 16-63 [facility] AST [Catalytic activity/Vol] 25 U/L 15-37 [facility] Bilirubin [Mass/Vol] 0.5 mg/dL 0.2-1.0 [facility] Calcium [Mass/Vol] 8.6 mg/dL 8.5-10.1 [facility] Chloride [Moles/Vol] 105 mmol/L 98-107 [facility] CO2 [Moles/Vol] 29.9 mmol/L 21.0-32.0 [facility] Creatinine [Mass/Vol] 0.85 mg/dL 0.70-1.30 [facility] Free T4 [Mass/Vol] 0.86 ng/dL 0.76-1.46 [facility] GFR/1.73 sq M.predicted MDRD (S/P/Bld) [Vol rate/Area] mL/min/{1.73_m2} >=60 mL/min/1.73m 2 [facility] Glucose [Mass/Vol] 124 mg/dL High 74-106 [facility] Potassium [Moles/Vol] 4.2 mmol/L 3.5-5.1 [facility] Protein [Mass/Vol] 7.0 g/dL 6.4-8.2 [facility] Sodium [Moles/Vol] 141 mmol/L 136-145 [facility] TSH Qn 3.012 m[IU]/L 0.358-3.740 [facility] Urea nitrogen [Mass/Vol] 9.0 mg/dL 7.0-18.0 [facility] Urea nitrogen/Creatinine [Mass ratio] 10.6 mg/mg [facility] Laboratory - Hematology and Cell countson 07-12-2024 ESR (Bld) [Velocity] 6 mm/h <=20 [facility] Immature granulocytes/100 WBC (Bld) 0.4 % 0.0-0.5 [facility] Leukocytes [#/volume] correc feng for nucleated erythrocytes in Blood by Automated counon 07-12-2024 WBC corrected for nucl RBC Auto (Bld) [#/Vol] Leukocytes [#/volume] corrected for nucleated erythrocytes in Blood by Automated coun 4.0-11.0 [facility] Lymphocytes Auto (Bld) [#/Vo l]on 07-12-2024 Lymphocytes (Bld) [#/Vol] Lymphocytes [#/volume] in Blood by Automated count Low 1.2-3.8 [facility] Lymphocytes/100 WBC Auto (Bl d)on 07-12-2024 Lymphocytes/100 WBC (Bld) Lymphocytes/100 leukocytes in Blood by Automated count 20.5-60.0 [facility] MCH Auto (RBC) [Entitic mass ]on 07-12-2024 MCH (RBC) [Entitic mass] MCH [Entitic mass] by Automated count 25.9-34.0 [facility] MCHC Auto (RBC) [Mass/Vol]on 07-12-2024 MCHC (RBC) [Mass/Vol] MCHC [Mass/volume] by Automated count 29.9-35.2 [facility] MCV Auto (RBC) [Entitic vol] on 07-12-2024 MCV (RBC) [Entitic vol] MCV [Entitic volume] by Automated count 80.0-94.0 [facility] Monocytes Auto (Bld) [#/Vol] on 07-12-2024 Monocytes (Bld) [#/Vol] Automated blood monocyte count 0.3-0.8 [facility] Monocytes/100 WBC Auto (Bld) on 07-12-2024 Monocytes/100 WBC (Bld) Automated monocyte % High 1.7-12.0 [facility] Neutrophils Auto (Bld) [#/Vo l]on 07-12-2024 Neutrophils (Bld) [#/Vol] Neutrophils [#/volume] in Blood by Automated count 1.4-6.5 [facility] Neutrophils/100 WBC Auto (Bl d)on 07-12-2024 Neutrophils/100 WBC (Bld) Automated neutrophil % 43.0-75.0 [facility] No Panel Informationon 07-12 C-Reactive Protein, Quantitative <0.50 mg/dL <=0.50 [facility] Eosinophils # (Auto) 0.2 10 3/uL 0.0-0.7 [facility] Immature Granulocyte # (Auto) 0.02 10 3/uL 0.00-0.03 [facility] Testosterone Level 412 ng/dL [phone] [facility] Comment on above: Adult male reference interval is based on a population ofhealthy nonobese males (BMI <30) between 19 and 39 yearsold. Jose Ramon et.al. JCEM 2017,102;5111-2115. PMID:[id number].Performed at: [facility] Director: Brenton Hewitt PhD, Phone: [phone] Platelet mean volume Auto (B ld) [Entitic vol]on 07-12-2024 Platelet mean volume (Bld) [Entitic vol] Platelet mean volume [Entitic volume] in Blood by Automated count 9.5-13.5 [facility] Platelets Auto (Bld) [#/Vol] on 07-12-2024 Platelets (Bld) [#/Vol] Platelets [#/volume] in Blood by Automated count 150-450 [facility] RBC Auto (Bld) [#/Vol]on RBC (Bld) [#/Vol] Erythrocytes [#/volume] in Blood by Automated count Low 4.70-6.10 [facility] Serum or plasma albumin/glob ulin mass ratioon 07-12-2024 Albumin/Globulin [Mass ratio] Serum or plasma albumin/globulin mass ratio [facility] Serum or plasma anion gap de terminationon 07-12-2024 Anion gap [Moles/Vol] Serum or plasma an ion gap determination [facility] HbA1c (Bld) [Mass fraction]o n 05-10-2024 Interpretation and review of laboratory results Normal [facility] Laboratory - Hematology and Cell countson 05-10-2024 HbA1c (Bld) [Mass fraction] 7.4 % [facility] HbA1c (Bld) [Mass fraction]o n 01-05-2024 Interpretation and review of laboratory results Normal [facility] Laboratory - Hematology and Cell countson 01-05-2024 HbA1c (Bld) [Mass fraction] 7.2 % [facility] Laboratory - Chemistry and C hemistry - challengeon 12-15-2023 Free T4 [Mass/Vol] 0.58 ng/dL Low 0.76-1.46 [facility] TSH Qn 4.748 m[IU]/L High 0.358-3.740 [facility] No Panel Informationon 12-14 Testosterone Level 418 ng/dL [phone] [facility] Comment on above: Adult male reference interval is based on a population ofhealthy nonobese males (BMI <30) between 19 and 39 yearsold. Jose Ramon, et.al. JCEM 2017,102;5139-7821. PMID:[id number]. Total Triiodothyronine 97 ng/dL 71-180 [facility] Comment on above: Performed at: [facility] [place] [id number] Director: Brenton Hewitt PhD, Phone: [phone] Basophils Auto (Bld) [#/Vol] on 09-29-2023 Basophils (Bld) [#/Vol] 0.1 10 3/uL 0.0-0.1 [facility] Basophils/100 WBC Auto (Bld) on 09-29-2023 Basophils/100 WBC (Bld) 0.8 % 0.2-2.0 [facility] Cholesterol in LDL Calc [Mas s/Vol]on 09-29-2023 Cholesterol in LDL [Mass/Vol] 92.0 mg/dL [facility] Comment on above: <100 mg/dl [id number] 0-129 mg/dl NEAR OR ABOVE [id number] mg/dl BORDERLINE [id number] mg/dl HIGH>190 mg/dl VERY HIGH Cholesterol in VLDL Calc [Ma ss/Vol]on 09-29-2023 Cholesterol in VLDL [Mass/Vol] 10.2 mg/dL [facility] Eosinophils/100 WBC Auto (Bl d)on 09-29-2023 Eosinophils/100 WBC (Bld) 3.9 % 0.9-7.0 [facility] Erythrocyte distribution wid th Auto (RBC) [Ratio]on 09-29-2023 Erythrocyte distribution width (RBC) [Ratio] 12.2 % 11.0-15.0 [facility] Estimated glomerular filtrat ion rate (GFR) non- Americanon 09-29-2023 GFR/1.73 sq M.predicted among non-blacks MDRD (S/P/Bld) [Vol rate/Area] mL/min/{1.73_m2} >=60 [facility] Globulin Calc (S) [Mass/Vol] on 09-29-2023 Globulin (S) [Mass/Vol] 3.4 g/dL [facility] Glucose mean value [Mass/vol ume] in Blood Estimated from glycated hemoglobinon 09-29-2023 Average glucose Estimated from glycated hemoglobin (Bld) [Mass/Vol] 157 mg/dL [facility] Hematocrit Auto (Bld) [Volum e fraction]on 09-29-2023 Hematocrit (Bld) [Volume fraction] 43.1 % 42.0-54.0 [facility] Hemoglobin [Mass/volume] in Bloodon 09-29-2023 Hemoglobin (Bld) [Mass/Vol] 14.2 g/dL 14.0-18.0 [facility] Laboratory - Chemistry and C hemistry - challengeon 09-29-2023 Albumin [Mass/Vol] 3.7 g/dL 3.4-5.0 [facility] ALP [Catalytic activity/Vol] 141 U/L 46-116 [facility] ALT [Catalytic activity/Vol] 58 U/L 16-63 [facility] AST [Catalytic activity/Vol] 28 U/L 15-37 [facility] Bilirubin [Mass/Vol] 0.7 mg/dL 0.2-1.0 [facility] Calcium [Mass/Vol] 8.6 mg/dL 8.5-10.1 [facility] Chloride [Moles/Vol] 103 mmol/L 98-107 [facility] Cholesterol [Mass/Vol] 174 mg/dL <=200 [facility] Cholesterol in HDL [Mass/Vol] 72 mg/dL 40-60 [facility] Comment on above: > or =60 mg/dl - LOW CARDIOVASCULAR RISK<40 mg/dl - HIGH CARDIOVASCULAR RISK CO2 [Moles/Vol] 31.6 mmol/L 21.0-32.0 [facility] Creatinine [Mass/Vol] 0.80 mg/dL 0.70-1.30 [facility] GFR/1.73 sq M.predicted MDRD (S/P/Bld) [Vol rate/Area] mL/min/{1.73_m2} >=60 [facility] Glucose [Mass/Vol] 128 mg/dL 74-106 [facility] Potassium [Moles/Vol] 3.7 mmol/L 3.5-5.1 [facility] Protein [Mass/Vol] 7.1 g/dL 6.4-8.2 [facility] Sodium [Moles/Vol] 141 mmol/L 136-145 [facility] Triglyceride [Mass/Vol] 51 mg/dL <=150 [facility] Urea nitrogen [Mass/Vol] 16.0 mg/dL 7.0-18.0 [facility] Urea nitrogen/Creatinine [Mass ratio] 20.0 mg/mg [facility] Laboratory - Hematology and Cell countson 09-29-2023 HbA1c (Bld) [Mass fraction] 7.1 % 4.5-6.2 [facility] Comment on above: ADA RECOMMENDED LIMI T 4.0 - 6.0ADA THERAPEUTIC TARGET < 7.0ACTION SUGGESTED> 7.0 Immature granulocytes/100 WBC (Bld) 0.4 % 0.0-0.5 [facility] Leukocytes [#/volume] correc feng for nucleated erythrocytes in Blood by Automated counon 09-29-2023 WBC corrected for nucl RBC Auto (Bld) [#/Vol] 7.1 10 3/uL 4.0-11.0 [facility] Lymphocytes Auto (Bld) [#/Vo l]on 09-29-2023 Lymphocytes (Bld) [#/Vol] 1.5 10 3/uL 1.2-3.8 [facility] Lymphocytes/100 WBC Auto (Bl d)on 09-29-2023 Lymphocytes/100 WBC (Bld) 21.2 % 20.5-60.0 [facility] MCH Auto (RBC) [Entitic mass ]on 09-29-2023 MCH (RBC) [Entitic mass] 30.5 pg 25.9-34.0 [facility] MCHC Auto (RBC) [Mass/Vol]on 09-29-2023 MCHC (RBC) [Mass/Vol] 32.9 g/dL 29.9-35.2 [facility] MCV Auto (RBC) [Entitic vol] on 09-29-2023 MCV (RBC) [Entitic vol] 92.5 fL 80.0-94.0 [facility] Microalbumin [Mass/volume] i n Urineon 09-29-2023 Albumin DL <= 20 mg/L (U) [Mass/Vol] mg/dL <=30.0 [facility] Monocytes Auto (Bld) [#/Vol] on 09-29-2023 Monocytes (Bld) [#/Vol] 0.7 10 3/uL 0.3-0.8 [facility] Monocytes/100 WBC Auto (Bld) on 09-29-2023 Monocytes/100 WBC (Bld) 10.3 % 1.7-12.0 [facility] Neutrophils Auto (Bld) [#/Vo l]on 09-29-2023 Neutrophils (Bld) [#/Vol] 4.5 10 3/uL 1.4-6.5 [facility] Neutrophils/100 WBC Auto (Bl d)on 09-29-2023 Neutrophils/100 WBC (Bld) 63.4 % 43.0-75.0 [facility] No Panel Informationon 09-28 Eosinophils # (Auto) 0.3 10 3/uL 0.0-0.7 [facility] Immature Granulocyte # (Auto) 0.03 10 3/uL 0.00-0.03 [facility] Prostate Specific Antigen Screen 0.26 ng/mL <=4.00 [facility] Platelet mean volume Auto (B ld) [Entitic vol]on 09-29-2023 Platelet mean volume (Bld) [Entitic vol] 10.1 fL 9.5-13.5 [facility] Platelets Auto (Bld) [#/Vol] on 09-29-2023 Platelets (Bld) [#/Vol] 331 10 3/uL 150-450 [facility] RBC Auto (Bld) [#/Vol]on RBC (Bld) [#/Vol] 4.66 10 6/uL 4.70-6.10 [facility] Serum or plasma albumin/glob ulin mass ratioon 09-29-2023 Albumin/Globulin [Mass ratio] 1.1 {ratio} [facility] Serum or plasma anion gap de terminationon 09-29-2023 Anion gap [Moles/Vol] 10.1 mmol/L [facility] Serum or plasma total choles terol/high density lipoprotein (HDL) cholesterol mass jing 09-29-2023 Cholesterol.total/Cho lesterol in HDL [Mass ratio] 2.4 {ratio} [facility] Comment on above: 3.3 - 4.4 LOW RISK4. 4 - 7.1 AVERAGE RISK7.1 - 11.0 MODERATE RISK>11.0 HIGH RISK CBC AUTO DIFFon 03-12-2022 BASO # 0.1 103/ul Normal 0.0-0.1 [facility] Comment on above: Performed By: #### C BC #### [facility] [address] [place] [address] Dr. Michelle Newell Basophils/100 WBC (Bld) 1.1 % Normal 0.2-2.0 [facility] Comment on above: Performed By: #### C BC #### [facility] [address] [place] [address] Dr. Michelle Newell EO # 0.3 103/ul Normal 0.0-0.7 [facility] Comment on above: Performed By: #### C BC #### [facility] [address] [address] [address] Michelle Newell Eosinophils/100 WBC (Bld) 4.6 % Normal 0.9-7.0 [facility] Comment on above: Performed By: #### C BC #### [facility] [address] [place] [address] Dr. Michelle Newell Erythrocyte distribution width (RBC) [Ratio] 12.2 % Normal 11.0-15.0 [facility] Comment on above: Performed By: #### C BC #### [facility] [address] [place] [address] Dr. Michelle Newell Hematocrit (Bld) [Volume fraction] 45.4 % Normal 42.0-54.0 [facility] Comment on above: Performed By: #### C BC #### [facility] [address] [place] [address] Dr. Michelle Newell Hemoglobin (Bld) [Mass/Vol] 15.4 g/dL Normal 14.0-18.0 [facility] Comment on above: Performed By: #### C BC #### [facility] [address] [place] [address] Dr. Michelle Newell IG # 0.02 10e3/ul Normal 0.00-0.03 [facility] Comment on above: Performed By: #### C BC #### [facility] [address] [place] [address] Dr. Michelle Newell IG % 0.3 % Normal 0.0-0.5 [facility] Comment on above: Performed By: #### C BC #### [facility] [address] [place] [address] Dr. Michelle Newell LYMPH # 1.8 103/ul Normal 1.2-3.8 [facility] Comment on above: Performed By: #### C BC #### [facility] [address] [place] [address] Dr. Michelle Newell Lymphocytes/100 WBC (Bld) 24.5 % Normal 20.5-60.0 [facility] Comment on above: Performed By: #### C BC #### [facility] [address] [place] [address] Dr. Michelle Newell MANUAL DIFF REQ NO Normal [facility] Comment on above: Performed By: #### C BC #### [facility] [address] [place] [address] Dr. Michelle Newell MCH (RBC) [Entitic mass] 30.9 pg Normal 25.9-34.0 [facility] Comment on above: Performed By: #### C BC #### [facility] [address] [address] [address] Michelle Newell MCHC (RBC) [Mass/Vol] 33.9 g/dL Normal 29.9-35.2 [facility] Comment on above: Performed By: #### C BC #### [facility] [address] [place] [address] Dr. Michelle Newell MCV (RBC) [Entitic vol] 91.2 fL Normal 80.0-94.0 [facility] Comment on above: Performed By: #### C BC #### [facility] [address] [place] [address] Dr. Michelle Newell MONO # 0.8 103/ul Normal 0.3-0.8 [facility] Comment on above: Performed By: #### C BC #### [facility] [address] [place] [address] Dr. Michelle Newell Monocytes/100 WBC (Bld) 10.8 % Normal 1.7-12.0 [facility] Comment on above: Performed By: #### C BC #### [facility] [address] [place] [address] Dr. Michelle Newell NEUT # 4.3 103/ul Normal 1.4-6.5 [facility] Comment on above: Performed By: #### C BC #### [facility] [address] [place] [address] Dr. Michelle Newell Neutrophils/100 WBC (Bld) 58.7 % Normal 43.0-75.0 [facility] Comment on above: Performed By: #### C BC #### [facility] [address] [place] [address] Dr. Michelle Newell Platelet mean volume (Bld) [Entitic vol] 10.2 fL Normal 9.5-13.5 [facility] Comment on above: Performed By: #### C BC #### [facility] [address] [place] [address] Dr. Michelle Newell PLT 326 103/ul Normal 150-450 [facility] [place] Comment on above: Performed By: #### C BC #### [facility] [address] [place] [address] Dr. Michelle Newell RBC 4.98 106/ul Normal 4.70-6.10 [facility] Comment on above: Performed By: #### C BC #### [facility] [place] [address] [address] [address] Michelle Newell WBC 7.3 103/ul Normal 4.0-11.0 [facility] Comment on above: Performed By: #### C BC #### [facility] [place] [address] [address] [address] Michelle Newell LIPID PROFILEon 03-12-2022 CHOL-HDL RATIO NORM SEE BELOW Normal [facility] Comment on above: Result Comment: 3.3 - 4.4 LOW RISK 4.4 - 7.1 AVERAGE RISK 7.1 - 11.0 MODERATE RISK >11.0 HIGH RISK Performed By: #### L IPID, TSH, CMP #### [facility] [place] [address] [address] [address] Michelle Newell Cholesterol [Mass/Vol] 155 mg/dL Normal <=200 [facility] Comment on above: Performed By: #### L IPID, TSH, CMP #### [facility] [place] [address] [address] [address] Michelle Newell Cholesterol in HDL [Mass/Vol] 70 mg/dL Critically high 40-60 [facility] Comment on above: Performed By: #### L IPID, TSH, CMP #### [facility] [place] [address] [address] [address] Michelle Newell Cholesterol in LDL [Mass/Vol] 76.2 mg/dL Normal [facility] Comment on above: Performed By: #### L IPID, TSH, CMP #### [facility] [place] [address] [address] [address] Michelle Newell Cholesterol.total/Cho lesterol in HDL [Mass ratio] 2.2 {ratio} Normal [facility] Comment on above: Performed By: #### L IPID, TSH, CMP #### [facility] [place] [address] [address] [address] Michelle Newell HDL NORMAL > or = 60 mg/dl - LO W CARDIOVASCULAR RISK <40 mg/dl - HIGH CARDIOVASCULAR RISK Normal [facility] Comment on above: Performed By: #### L IPID, TSH, CMP #### [facility] [place] [address] [address] [address] Michelle Newell LDL CALC NORMAL SEE BELOW Normal [facility] Comment on above: Result Comment: <100 mg/dl OPTIMAL 100 - 129 mg/dl NEAR OR ABOVE OPTIMAL 130 - 159 mg/dl BORDERLINE HIGH 160 - 189 mg/dl HIGH >190 mg/dl VERY HIGH Performed By: #### L IPID, TSH, CMP #### [facility] [place] [address] [address] [address] Michelle Newell Triglyceride [Mass/Vol] 44 mg/dL Normal <=150 [facility] Comment on above: Performed By: #### L IPID, TSH, CMP #### [facility] [place] [address] [address] [address] Michelle Newell VLDL CALC 8.8 mg/dL Normal [facility] Comment on above: Performed By: #### L IPID, TSH, CMP #### [facility] [place] [address] [address] [address] Michelle Newell MICROALB CREAT RATIO RANDOMo n 03-12-2022 mALB <1.3 Normal <=30.0 [facility] Comment on above: Performed By: #### M CRR #### [facility] [place] [address] [address] [address] Michelle Newell MALB CR RATIO 7.6 mg/g Normal 0.0-29.9 [facility] Comment on above: Performed By: #### M CRR #### [facility] [place] [address] [address] [address] Michelle Newell MALB CR RATIO RANGE SEE BELOW Normal [facility] Comment on above: Result Comment: NO M ICROALBUMINURIA 0-29 MG/G CLINICAL MICROALBUMINURIA 30-300 MG/G MACROALBUMINURIA >300 MG/G Performed By: #### M CRR #### [facility] [place] [address] [address] [address] Michelle Newell URINE CREAT 170.74 mg/dL Normal 20.00-300.00 [facility] Comment on above: Performed By: #### M CRR #### [facility] [place] [address] [address] [address] Michelle Newell PROF 14(COMP METB)on 022 Albumin [Mass/Vol] 4.2 g/dL Normal 3.4-5.0 [facility] Comment on above: Performed By: #### L IPID, TSH, CMP #### [facility] [place] [address] [address] [address] Michelle Newell Albumin/Globulin [Mass ratio] 1.2 {ratio} Normal [facility] Comment on above: Performed By: #### L IPID, TSH, CMP #### [facility] [place] [address] [place] [address] Dr. Michelle Newell ALP [Catalytic activity/Vol] 130 U/L Critically high 46-116 [facility] Comment on above: Performed By: #### L IPID, TSH, CMP #### [facility] [address] [place] [address] Dr. Michelle Newell ALT [Catalytic activity/Vol] 30 U/L Normal 16-63 [facility] Comment on above: Performed By: #### L IPID, TSH, CMP #### [facility] [address] [place] [address] Dr. Michelle Newell Anion gap [Moles/Vol] 7.3 mmol/L Normal [facility] Comment on above: Performed By: #### L IPID, TSH, CMP #### [facility] [address] [place] [address] Dr. Michelle Newell AST [Catalytic activity/Vol] 19 U/L Normal 15-37 [facility] Comment on above: Performed By: #### L IPID, TSH, CMP #### [facility] [address] [address] [address] Michelle Newell Bilirubin [Mass/Vol] 0.5 mg/dL Normal 0.2-1.0 [facility] Comment on above: Performed By: #### L IPID, TSH, CMP #### [facility] [address] [address] [address] Michelle Newell Calcium [Mass/Vol] 8.9 mg/dL Normal 8.5-10.1 [facility] Comment on above: Performed By: #### L IPID, TSH, CMP #### [facility] [address] [address] [address] Michelle Newell Chloride [Moles/Vol] 101 mmol/L Normal 98-107 [facility] Comment on above: Performed By: #### L IPID, TSH, CMP #### [facility] [address] [address] [address] Michelle Newell CO2 [Moles/Vol] 34.6 mmol/L Critically high 21.0-32.0 [facility] Comment on above: Performed By: #### L IPID, TSH, CMP #### [facility] [address] [place] [address] Dr. Michelle Newell Creatinine [Mass/Vol] 0.75 mg/dL Normal 0.70-1.30 [facility] Comment on above: Performed By: #### L IPID, TSH, CMP #### [facility] [address] [place] [address] Dr. Michelle Newell EGFR-AF KENYAN >60 Normal >=60 [facility] Comment on above: Performed By: #### L IPID, TSH, CMP #### [facility] [address] [place] [address] Dr. Michelle Newell EGFR-NON AF KENYAN >60 Normal >=60 [facility] Comment on above: Performed By: #### L IPID, TSH, CMP #### [facility] [address] [place] [address] Dr. Michelle Newell Globulin (S) [Mass/Vol] 3.4 g/dL Normal [facility] Comment on above: Performed By: #### L IPID, TSH, CMP #### [facility] [address] [place] [address] Dr. Michelle Newell Glucose [Mass/Vol] 131 mg/dL Critically high 74-106 [facility] Comment on above: Performed By: #### L IPID, TSH, CMP #### [facility] [address] [place] [address] Dr. Michelle Newell Potassium [Moles/Vol] 3.9 mmol/L Normal 3.5-5.1 [facility] Comment on above: Performed By: #### L IPID, TSH, CMP #### [facility] [address] [place] [address] Dr. Michelle Newell Protein [Mass/Vol] 7.6 g/dL Normal 6.4-8.2 [facility] Comment on above: Performed By: #### L IPID, TSH, CMP #### [facility] [address] [place] [address] Dr. Michelle Newell Sodium [Moles/Vol] 139 mmol/L Normal 136-145 [facility] Comment on above: Performed By: #### L IPID, TSH, CMP #### [facility] [address] [place] [address] Dr. Michelle Newell Urea nitrogen [Mass/Vol] 11.0 mg/dL Normal 7.0-18.0 [facility] Comment on above: Performed By: #### L IPID, TSH, CMP #### [facility] [address] [place] [address] Dr. Michelle Newell Urea nitrogen/Creatinine [Mass ratio] 14.7 mg/mg Normal [facility] Comment on above: Performed By: #### L IPID, TSH, CMP #### [facility] [address] [place] [address] Dr. Michelle Newell TSHon 03-12-2022 TSH 4.267 uIU/mL Critically high 0.358-3.740 [facility] Comment on above: Performed By: #### L IPID, TSH, CMP #### [facility] [address] [place] [address] Dr. Michelle Newell Pathology Noteon 07-30-2021 Pathology Note [id number] .[id number]:127 Normal [facility] Outside Colonoscopyon 2021 Outside Colonoscopy [id number]. 00CD:127 Normal [facility] Reminderson 07-29-2021 Reminders - From: Etelvina Saxena LPN To: N - Clinical; Sent: 07/29/2021 09:57:59 EDT Show up: 06/28/2031 07:00:00 EST Subject: colonoscopy recall Due Date/Time: 07/29/2031 07:00:00 EDT Reminder/Recall Patient is due for screening colonoscopy 07/29/2031. Normal [facility] Lab Reportson 07-26-2021 Lab Reports [id number] .[id number]:127 Normal [facility]30 SARS-CoV-2 (COVID-19) RNA FRANCE+probe Ql (Unsp spec) Not detected Normal NOT DETECTED [facility] Comment on above: Result Comment: When diagnostic testing is negative, the possibility of a false negative should be considered in the context of a patient's recent exposures and the presence of clinical signs and symptoms consistent with SARS-CoV-2. This test is not yet approved or cleared by the [place] Food and Drug Administration (FDA). This test was developed by [employer], [place], [place]. The performance characteristics of this test were validated by The [facility]. The results are not intended to be used as the sole means for clinical diagnosis or patient management decisions. The [facility] is authorized under Clinical Laboratory Improvement Amendments [...] for this test is supported by the [employer] of Health and Human Service's declaration that [...] longer be used). Performed By: #### C [facility] #### [facility] [address] [place] [address] Dr. Michelle Newell Consent for Procedure/Surger yon 07-15-2021 Consent for Procedure/Surgery [id number] .[id number]:127 Normal [facility] Physician Referralon 022 Physician Referral [id number] .[id number]:127 Normal [facility] Vital Signs Date Time Vital Sign Value Performing Clinician Facility 07-19-2024 09:23-0400 Body height 172.72 cm [facility] 07-19-2024 09:23-0400 Body mass index (BMI) [Ratio] 28.5 kg/m2 [facility] 07-19-2024 09:23-0400 Body weight 84.99 kg [facility] 07-19-2024 09:23-0400 Diastolic blood pressure 84 mm[Hg] [facility] 07-19-2024 09:23-0400 Heart rate 78 /min [facility] 07-19-2024 09:23-0400 Respiratory rate 12 /min [facility] 07-19-2024 09:23-0400 Systolic blood pressure 133 mm[Hg] [facility] 05-10-2024 13:01-0500 Body height 172.7 cm [employer] Work Phone: [facility] 05-10-2024 13:01-0500 Body mass index (BMI) [Ratio] 29.5 kg/m2 [employer] Work Phone: [facility] 05-10-2024 13:010500 Body temperature 98.6 [degF] [employer] Work Phone: [facility] 05-10-2024 13:01-0500 Body weight 88 kg Cordelia Petznick DO Work Phone: [facility] 05-10-2024 13:01-0500 Diastolic blood pressure 72 mm[Hg] Cordelia Petznick DO Work Phone: [facility] 05-10-2024 13:01-0500 Heart rate 72 /min Cordelia Petznick DO Work Phone: [facility] 05-10-2024 13:01-0500 SaO2% (BldA) [Mass fraction] 95 % Cordelia Petznick DO Work Phone: [facility] 05-10-2024 13:01-0500 Systolic blood pressure 124 mm[Hg] Cordelia Petznick DO Work Phone: [facility] 02-21-2024 14:35-0400 Body height 172.72 cm [facility] 02-21-2024 14:35-0400 Body mass index (BMI) [Ratio] 28.4 kg/m2 [facility] 02-21-2024 14:35-0400 Body weight 84.93 kg [facility] 02-21-2024 14:35-0400 Diastolic blood pressure 83 mm[Hg] [facility] 02-21-2024 14:35-0400 Heart rate 80 /min [facility] 02-21-2024 14:35-0400 Respiratory rate 12 /min [facility] 02-21-2024 14:35-0400 Systolic blood pressure 150 mm[Hg] [facility] 01-05-2024 13:00-0400 Body height 172.7 cm Cordelia Petznick DO Work Phone: [facility] 01-05-2024 13:00-0400 Body mass index (BMI) [Ratio] 29.35 kg/m2 Cordelia Petznick DO Work Phone: [facility] 01-05-2024 13:00-0400 Body temperature 98.29 [degF] Cordelia Petznick DO Work Phone: [facility] 01-05-2024 13:00-0400 Body weight 87.54 kg Cordelia Petznick DO Work Phone: [facility] 01-05-2024 13:00-0400 Diastolic blood pressure 72 mm[Hg] Cordelia Petznick DO Work Phone: [facility] 01-05-2024 13:00-0400 Heart rate 86 /min Cordelia Petznick DO Work Phone: [facility] 01-05-2024 13:00-0400 SaO2% (BldA) [Mass fraction] 94 % Cordelia Petznick DO Work Phone: [facility] 01-05-2024 13:00-0400 Systolic blood pressure 126 mm[Hg] Cordelia Petznick DO Work Phone: [facility] 10-06-2023 10:24-0400 Body height 172.72 cm [facility] 10-06-2023 10:24-0400 Body mass index (BMI) [Ratio] 29 kg/m2 [facility] 10-06-2023 10:24-0400 Body weight 86.8 kg [facility] 10-06-2023 10:24-0400 Diastolic blood pressure 80 mm[Hg] [facility] 10-06-2023 10:24-0400 Heart rate 75 /min [facility] 10-06-2023 10:24-0400 Respiratory rate 12 /min [facility] 10-06-2023 10:24-0400 Systolic blood pressure 130 mm[Hg] [facility] 09-30-2022 10:00-0400 Body height 172.72 cm Stalin Ball Other [facility] [employer] Other 09-30-2022 10:00-0400 Body mass index (BMI) [Ratio] 28.67 kg/m2 Stalin Ball Other [employer] [facility] [employer] Other 09-30-2022 10:00-0400 Body weight 85.55 kg Stalin Ball Other [employer] [facility] [employer] Other 09-30-2022 10:00-0400 Diastolic blood pressure 80 mm[Hg] Stalin Ball Other [employer] Other 09-30-2022 10:00-0400 Respiratory rate 12 /min Stalin Borjas Other [employer] Other 09-30-2022 10:00-0400 Systolic blood pressure 135 mm[Hg] Stalin Borjas Other [employer] Other Encounters Encounter Date Encounter Type Care Provider Facility Start: 07-19-2024 End: 07-19-2024 ambulatory [facility] Work Phone: Start: 07-19-2024 End: 07-19-2024 Patient encounter procedure [facility] Work Phone: Start: 07-12-2024 Non-patient / Non-visit [facility] Work Phone: Start: 05-10-2024 End: 05-10-2024 Office outpatient visit 25 minutes Cordelia Mosqueda Petgurvinderick DO Work Phone: [facility] 415 Comment on above: Hypoglycemia due to type 1 diabetes mellitus ([facility]HCC) (Primary Dx); 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 ([facility]/HCC) Start: 05-10-2024 End: 05-10-2024 ambulatory CORDELIA COLONICK Not Available Start: 02-21-2024 End: 02-21-2024 ambulatory [facility] Work Phone: Start: 02-21-2024 End: 02-21-2024 Patient encounter procedure [facility] Work Phone: Start: 01-05-2024 End: 01-05-2024 Office outpatient visit 25 minutes Cordelia Mosqueda Petznick DO Work Phone: [facility] 226 Comment on above: Hypoglycemia due to type 1 diabetes mellitus ([facility]/HCC) (Primary Dx); 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 ([facility]) Start: 01-05-2024 End: 01-05-2024 ambulatory CORDELIA JOHNSON Not Available Start: 12-15-2023 Non-patient / Non-visit [facility] Work Phone: Start: 10-11-2023 End: 10-11-2023 ambulatory AP CABRERA Not Available Start: 10-06-2023 End: 10-06-2023 ambulatory [facility] Work Phone: Start: 10-06-2023 End: 10-06-2023 Encounter for general adult medical examination without abnormal findings [facility] Start: 10-06-2023 End: 10-06-2023 Patient encounter procedure [facility] Work Phone: Start: 09-29-2023 Non-patient / Non-visit [facility] Work Phone: Start: 09-01-2023 End: 09-01-2023 ambulatory CORDELIA Panda ALEX Not Available Start: 01-18-2023 End: 01-18-2023 ambulatory Stalin Borjas Other [employer] Other Start: 01-18-2023 Telephone encounter Stalin GOMES [facility] Start: 10-24-2022 End: 10-24-2022 ambulatory Stalin Borjas Other [employer] Other Start: 10-24-2022 Telephone encounter Stalin Borjas FP [facility] Start: 10-18-2022 End: 10-18-2022 ambulatory Stalin Borjas Other [employer] Other Start: 10-18-2022 Telephone encounter Stalin Borjas FP [facility] Start: 09-30-2022 End: 09-30-2022 ambulatory Stalin Borjas Other [employer] Other Start: 09-30-2022 Encounter for genera l adult medical examination without abnormal findings Stalin Borjas [facility] Start: 09-30-2022 Periodic preventive med est patient 40-64yrs Stalin Borjas [facility] Start: 03-15-2022 Encounter for genera l adult medical examination without abnormal findings DR CORDELIA JOHNSON [facility] Start: 03-12-2022 End: 03-13-[address] CORDELIA JOHNSON Facility:[facility] Start: 03-12-2022 End: 03-13-2022 Encounter for general adult medical examination without abnormal findings DR CORDELIA JOHNSON Facility:[facility] Start: 09-21-2021 End: 09-21-2021 ambulatory Ubaldo Burgos Other [employer] Other Start: 09-21-2021 Office outpatient vi sit 15 minutes Ubaldo Burgos [facility] Start: 08-10-2021 End: 09-24-2021 ambulatory UBALDO BURGOS Facility:[facility] Start: 07-28-2021 Encounter for prepro cedural laboratory examination DR ELIZ CHICAS [facility] Start: 07-28-2021 End: 07-28-[address] ELIZ CHICAS Facility:[facility] Start: 07-27-2021 End: 07-28-2021 ambulatory UBALDO BURGOS [employer] Other Start: 07-27-2021 Office outpatient ne w 30 minutes Ubaldo Olemichael [facility] Start: 07-24-2021 End: 07-25-[address] ELIZ CHICAS Facility:[facility] Start: 07-24-2021 End: 07-25-2021 Encounter for preprocedural laboratory examination DR ELIZ CHICAS Facility:[facility] Start: 07-03-[address] STALIN BORJAS Facili ty:[facility]1 Start: 06-29-2021 Encounter for genera l adult medical examination without abnormal findings Stalin Borjas Other [employer] Other Procedures Date Procedure Procedure Detail Performing Clinician Start: 05-10-2024 Hemoglobin glycosyla feng a1c Cordelia Johnson DO Work Phone: Start: 01-05-2024 Hemoglobin glycosyla feng a1c Cordelia Johnson DO Work Phone: Depression screening [facility] n [facility] Other Plan of Treatment Date Care Activity Detail Author Start: 03-12-2025 Glaucoma screening Diabetes: Retinopathy Screening [facility] Start: 08-09-2024 End: 08-09-2024 Patient encounter procedure 08/09/2024 3:15 PM EDT Office Visit [facility] [address] [place] [address] Cordelia Johnson, DO [address] [place] [address] [facility] [address] Start: 08-08-2024 Hemoglobin A1c measurement Diabetes: Hemoglobin A1C [facility] Start: 05-10-2024 End: 05-10-2024 Patient encounter procedure 05/10/2024 1:00 PM EST Office Visit [facility] [address] [facility] [address] [place] [address] Cordelia Johnson, DO [address] [facility] [address] [place] [address] [facility] [address] Start: 04-05-2024 Hemoglobin A1c measurement Diabetes: Hemoglobin A1C [facility] Start: 01-23-2024 End: 01-23-2024 Patient encounter procedure 01/23/2024 12:45 PM EDT Office Visit [facility] [address] [place] [phone] Ap Cabrera, [facility] [place] [address] [facility]] [address] Start: 01-19-2024 Glaucoma screening Diabetes: Retinopathy Screening [facility] Start: 12-31-2023 Influenza vaccination Influenza Vaccine (#1) [facility] Start: 03-12-2023 Urine screening for protein Diabetes: Urine Protein Screening [facility] Start: 1975 Screening for malignant neoplasm of colon [facility] Thyroperoxidase Ab [Units/volume] in Serum or Plasma [facility] Immunizations Immunization Date Immunization Notes Care Provider Fa cility 04-13-2021 influenza, injectabl e, quadrivalent, contains preservative Stalin Borjas Other [facility] 04-13-2021 influenza, injectabl e, quadrivalent, preservative free [facility] 04-13-2021 influenza virus vaccine, unspecified formulation Cordelia Alex DO Work Phone: [facility] 02-24-2021 COVID-19 Vaccine Moderna - Documentation Purposes Only Stalin Borjas Other [facility] 02-23-2021 Moderna SARS-CoV-2 Booster Vaccination [place] [facility] Work Phone: [facility] 08-09-2020 COVID-19 Vaccine Moderna - Documentation Purposes Only Stalin Borjas Other [facility] 07-13-2020 COVID-19 Vaccine Moderna - Documentation Purposes Only Stalin Borjas Other [facility] Payers Date Payer Category Payer [facility] BC[employer] Memb er Subscriber Plan / Payer (Effective 2022-Present) Name: Gregorio Lea Member ID: [id number] Relation to Subscriber: Spouse Name: Barbara Lea Subscriber ID: [id number] Date of : 1979 (Home) (Work) Address: [address] [place] [address] Payer ID: Not on file Type: Not on file Address: [address] [place] [address] [id number] 2022 Unknown BCBS BCBS [id number] [id number] 2022-Present [phone] [address] [place] [address] [id number] 2022 Blue Cross Blue Shield [id number] 2019 Unknown [id number] 1973 Unknown [id number] 2.16.840.1.531261.3.579.2. 593 1973 Unknown [id number] 2.16.840.1.340521.3.579.2. 593 1973 Unknown [id number] 2.16.840.1.557254.3.579.2. 593 1973 Unknown [id number] 2.16.840.1.893270.3.579.2. 593 1973 Unknown [id number] 2.16.840.1.760887.3.579.2. 593 1973 Unknown [id number] 2.16.840.1.486967.3.579.2. 593 1973 Unknown [id number] 2.16.840.1.946996.3.579.2. 1259 1973 Unknown [id number] 2.16.840.1.938919.3.579.2. 1259 1973 Unknown [id number] 2.16.840.1.866698.3.579.2. 1259 1973 Unknown [id number] 2.16.840.1.082668.3.579.2. 1259 1959 Private Health Insurance [id number] 2.16.840.1.663872.19 1961 Self-pay Social History Date Type Detail Facility Start: 12-19-2022 End: 05-10-2024 Sex Assigned At [facility] Start: 09-21-2021 End: 12-23-2022 Tobacco smoking status AZIS Ex-smoker (finding) [facility] Start: 1975 Sex Assigned At Male F [facility] History of tobacco use Current smoker [facility] [...] - these days [OSQ] Not at all [facility] (I/We) worried wheth er (my/our) food would run out before (I/we) got money to buy more. Never true [facility] Start: 01-18-2023 Alcohol Comment coffee 2-3 cup s per day [facility] Start: 1975 Sex assigned at Not on file [facility] Start: 07-19-2024 Sex Male (finding) [facility] Medical Equipment Procedure Code Equipment Code Equipment Origin al Text Equipment Identifier Dates [id number] Start: 09-01-2023 End: 08-31-2024 Clinical Notes 07-14-2021 to 05-10-2024 Cordelia Johnson, DO - 05/10/2024 2:00 PM Fernando Johnson, DO - 05/10/2024 1:00 PM Fernando Johnson, DO - 01/05/2024 3:44 PM Yony Johnson, DO - 01/05/2024 1:00 PM EDT Note [...] The 10-year ASCVD risk score (José Miguel DK, et al., 2019) is: 3.1%* Values used [...] nasal powder Insulin Disposable Pump (Omnipod 5 [id number] Pods Gen 5) misc Other Relevant Orders [...] Previous Medication INSULIN DISPOSABLE PUMP (OMNIPOD 5 [id number] PODS GEN 5) MISC Insulin Disposable Pump (Omnipod 5 [id number] Pods Gen 5) misc Inject 1 each [...] the patient today. documented in this encounter [facility] 01-05-2024 History of Presen t illness Narrative [...] the patient today. documented in this encounter 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 (ICD-10 - E10.3553) [facility] 06-26-2023 Evaluation note* Encounter Date Diagnosis Assessment Notes Treatment Notes Treatment Clinical Notes Sep, AKIN (obstructive sleep apnea) (ICD-10 - G47.33) AHI 18 Psat 79% [facility] 06-20-2023 Evaluation note* Encounter Date Diagnosis Assessment Notes Treatment Notes Treatment Clinical Notes Sep, Allergic contact dermatitis due to plants, except food (ICD-10 - L23.7) [facility] 06-02-2023 Evaluation note* Encounter Date Diagnosis [...] will send referral for home sleep study [facility] 05-24-2022 Evaluation note* Encounter Date Diagnosis [...] capsulitis of left shoulder (ICD-10 - M75.02) [facility] 03-30-2022 NoteOPERATIVE NOTE PREOPERATIVE DIAGNOSIS: Colorectal [...] in 10 years. CC: Stalin Borjas D.O. [facility] Signed and Approved by: DR ELIZ CHICAS . 07/30/2021 05:17:00[facility]03-30-2022 NoteOPERATIVE NOTE PREOPERATIVE DIAGNOSIS: Colorectal screening. [...] 10 years. CC: Stalin Borjas D.O. : [facility] Signed and Approved by: DR ELIZ CHICAS . 07/30/2021 05:17:00[facility]03-29-2022 NotePROCEDURE: XR SHOULDER MACRINA 2V or [...] Electronically authenticated by: SAY VILLASENOR Date: 2021-07-27 17:23[facility]03-29-2022 Evaluation note* Encounter Date Diagnosis Assessment [...] motion exercise. Formal order of physical therapy. [facility] 03-16-2022 NoteChief Complaint consultation for colonoscopy [...] Date Status influenza virus vaccine, inactivated 01/2021 [facility] Comment on above:Result Comment: Electronically Signed By: ZULEMA PICHARDO, Eliz Richards\Date and Time Signed: 07/14/21 17:02 EDTEvaluation note* Diagnosis Onset Date Resolution Status Benign prostatic hyperplasia with lower urinary tract symptoms acute AKIN (obstructive sleep apnea) acute Overweight acute Type 1 diabetes mellitus with hyperglycemia acute Screening PSA (prostate specific antigen) noneactive Wellness examination noneact geo [facility] Work Phone: Evaluation note* Diagnosis Onset Date Resolution Status Fatigue acute Hypothyroid acute AKIN (obstructive sleep apnea) acute Overweight acute [facility] Work Phone: Evaluation note* Diagnosis Hypoglycemia due to type 1 diabetes mellitus (CMS/HCC)- Primary 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 (CMS/HCC) documented in this encounter [facility] HealthcareEvaluation note* Diagnosis Type 1 diabetes mellitus [...] macular edema (CMS/HCC) documented in this encounter [facility] HealthcareEvaluation note* Diagnosis Onset Date Resolution Status Admit Date Fatigue acute July 19 9:02am Hypothyroid acute July 19 025 9:02am Major depression acute July 192024 9:02am AKIN (obstructive sleep apnea) acute July 19, 2024 9:02am Type 1 diabetes mellitus wit h hyperglycemia acute July 19, 2024 9:02am [facility] Work Phone: History general Narrative - Reported* Type Description Date Medical History diabetes mallitus Surgical History carpal tunnel release [facility] Other History general Narrative - Reported* Type Description Date Medical History diabetes mallitus Medical History Pure hypercholesterolemia Medical History Adhesive capsulitis of right marsha ulder Medical History HAILEY (generalized anxiety disorde r) Surgical History carpal tunnel release- BILATERA L 2015 Surgical History COLONOSCOPY 2021 Hospitalization History SEE SURGICAL HX [facility] Other History general Narrative - Reported* Type Description Date Medical History diabetes mallitus Medical History Pure hypercholesterolemia Medical History Adhesive capsulitis of right marsha ulder Medical History HAILEY (generalized anxiety disorde r) Medical History AKIN Surgical History carpal tunnel release- BILATERA L 2014 Surgical History COLONOSCOPY 2021 Hospitalization History SEE SURGICAL HX [facility] Other History general Narrative - Reported* Type Description Date Medical History diabetes mallitus Medical History Pure hypercholesterolemia Medical History Adhesive capsulitis of right marsha ulder Medical History HAILEY (generalized anxiety disorde r) Medical History AKIN Medical History Proliferative diabetic retinopat hy Surgical History carpal tunnel release- BILATERA L 2014 Surgical History COLONOSCOPY 2021 Hospitalization History SEE SURGICAL HX [facility] Other Summary Purpose Family History No Family [...] Fatigue Hypothyroid AKIN (obstructive sleep apnea) Overweight Chief Complaint Admit Date lab results follow up July 19, 2024 9 :02am Reason for Visit Admit Date Fatigue July 19, 2024 9:0 2am Hypothyroid July 19, 2024 9:0 2am Major depression July 19, 2024 9:0 2am AKIN (obstructive sleep apnea) June 9:02am Type 1 diabetes mellitus with hyperglyce erica July 19, 2024 9:02am Additional Source Comments (unrecognized sect ion and content) No Status Records FoundNo Status Records FoundNo Status Records Found INFORMATION SOURCE (unrecogn ized section and content) DATE CREATED AUTHOR 08/22/2021 [facility] DATE CREATED AUTHOR AUTHOR'S ORGANIZ ATION 03/23/2022 [facility] DATE CREATED AUTHOR AUTHOR'S ORGANIZ ATION 05/15/2024 [facility] dical Specialists EPIC REASON FOR VISIT [...] February 21, 2024 End: February 21, 2024 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 Start Date End Date Cordelia Johnson DO [address] [facility] [address] [place] [address] PCP - [facility] [employer] 01/29/23 Stalin Borjas MD [address] [place] [address] PCP - General Internal Medicine 10/11/23 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 Start Date End Date Cordelia Johnson DO [address] [facility] [address] [place] [address] PCP - [facility] [employer] 01/29/23 Stalin Borjas MD [address] [place] [id number] PCP - General Internal Medicine 10/11/23 Team Status: Active Member Role Status Dates Stalin Borjas DO Primary Care Provide r, Attending Provider Active Start: July 12, 2024 Team Status: Inactive Member Role Status Dates Stalin Borjas DO Primary Care Provide r, Attending Provider Active Start: July 19, 2024 End: July 19, 2024 Goals (unrecognized section and content) Goals may [...] BE BASED ON THE PRIMARY CLINICAL RECORDS. [employer] [facility]. provides no warranty or guarantee of the accuracy or completeness of information in this document.
--- NOTE | 2024-07-26 07:05 | CT_ITS ---
The [address] [address] Patient Name: SPENCER GALLAGHER MRN: [id number] date: 1975 Sex: M Assigned Patient Location: CT Current Patient Location: CT Accession/Order Number: [id number] Exam Date: 07/26/2024 10:07 Report Date: 07/26/2024 10:17 At the request of: SHAUN JAMES DO Procedure: CT abdomen pelvis w con CT Abdomen and Pelvis withcontrast TECHNIQUE: Axial imaging with 2-D reconstruction.100 cc of Omnipaque 300. The CT exam was performed using one or more the following dose reduction techniques: Automated exposure control, adjustment of the MA and/or Kv according to patient size, or use of the iterative reconstruction technique. COMPARISON: None History: Chronic fatigue for couple years LIMITATIONS: None LOWER THORAX Unremarkable LIVER: Unremarkable GALLBLADDER: No gallbladder abnormality identified. BILE DUCTS: No dilatation SPLEEN: Unremarkable PANCREAS: Unremarkable ADRENAL GLANDS: Unremarkable KIDNEYS:3 mm right nephrolithiasis. No focal renal lesion. Prompt symmetric nephrograms. There are no hydronephrosis. No obstructing ureteral stone. AORTA: No abdominal aortic aneurysm identified. RETROPERITONEUM: No significant retroperitoneal abnormalities identified. MESENTERY:Unremarkable SMALL BOWEL: The small bowel loops are nondistended. APPENDIX: The appendix is normal. COLON: Moderate stool throughout the colon. No colitis or diverticulitis. URINARY BLADDER: Urinary bladder is unremarkable. REPRODUCTIVE SYSTEM: Reproductive structures are unremarkable. PNEUMOPERITONEUM: None PERITONEAL FLUID:None BONY STRUCTURES: Unremarkable ABDOMINAL WALL: Unremarkable CT/CT abdomen pelvis w con IMPRESSION: No acute findings. Moderate constipation. Right nephrolithiasis. Impression dictated by: Nacho Juarez M.D.07/26/2024 10:17 AM Dictation Location: [place] [address] Electronically authenticated by: [id number] Y Date: 07/26/2024 10:17
== END 2024-07-26 06:58 | disposition home or self-care (01) ==
LOC: CT 06:58
PROVIDERS: PCP Internal Medicine; Visit Provider Internal Medicine
DX: R74.8 Abnormal levels of other serum enzymes (principal); R63.4 Abnormal weight loss; R63.0 Anorexia; F17.200 Nicotine dependence, unspecified, uncomplicated; R53.83 Other fatigue; K59.00 Constipation, unspecified; N20.0 Calculus of kidney
CPT/HCPCS: 74177; Q9967

== ENCOUNTER 2025-01-29 15:03 | Outpatient (OUT) | payer BC, SELFPAY ==
--- OUTSIDE RECORDS SUMMARY | 2024-12-06 15:04 | XMS_ITS ---
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 Name Role Phone YOHANA JOHNSON Attending Unavailable YOHANA JOHNSON Attending Unavailable YOHANA JOHNSON Attending Unavailable PROBLEMS No Problem Records Found PROCEDURES No Procedure Records Found RESULTS No Result Records Found ALLERGIES No Allergies Records Found ENCOUNTERS ADMIT/DISCHARGE ACCOUNT NUMBER ADMITTING ENCOUNTER CLASS LOCATION SOURCE 12/06/2024/ 5 [id number] Ambulatory Building:[facility] 08/09/2024/ 5 [id number] Ambulatory Building:[facility] 05/10/2024/ 5 [id number] Ambulatory Building:[facility] PAYERS ENCOUNTER GUARANTOR PAYER SUBSCRIBER SOURCE 12/06/2024 SPENCER MCGEEB: [place] [address]Oke: (HP) Primary Insurance:BCBSPo licy Number: [id number] ctive Date:2022-05-01 SANCHEZ MCGEEB: [id number] [place] [address] [facility] 08/09/2024 SPENCER MCGEEB: [place] [address]Wre: (HP) Primary Insurance:BCBSPo licy Number: [id number] ctive Date:2022-05-01 SANCHEZ DELAROSA: [id number] [place] [address] [facility] 05/10/2024 SPENCER DELAROSA: [place] [address]Err: () Primary Insurance:[facility] licy Number: [id number] ctive Date:2022-05-01 SANCHEZ MCGEEB: [id number] [place] [address] [facility]
== END 2025-01-29 15:04 | disposition home or self-care (01) ==
LOC: SLEEP 15:03
PROVIDERS: PCP Internal Medicine; Visit Provider Psychiatry & Neurology Neurology
DX: G47.33 Obstructive sleep apnea (adult) (pediatric) (principal)